=== PATIENT | female | born 1960 | race Caucasian/White ===

== ENCOUNTER 2024-06-20 14:58 | Emergency (ER) | payer MEDICARE, SELFPAY ==
[2024-06-20 15:08] VITALS: BP 218/71; PULSE 80; RESP 18; TEMP 36.9; O2SAT 96; BMI 40.6
[2024-06-20 15:30] VITALS: BP 196/89
--- NOTE | 2024-06-20 15:31 | ED_ITS ---
HPI - General Adult General Time Seen by Provider: 15:31 Date Seen: 06/20/24 Chief complaint: Hypertension Stated complaint: blood pressure issue Time Seen by Provider: 06/20/24 15:30 Source: patient and RN notes reviewed Mode of arrival: ambulatory Limitations: no limitations History of Present Illness HPI narrative: This 63-year-old female is coming in with elevated blood pressures at home. Her blood pressure when I come into the room is 196/89, was 218/71 on arrival. She notes that her blood pressure was 220/86 today, notes that it has been elevating recently. She states she was told she had a small stroke about 2 weeks ago. She states she was at [address] in [place]. She does not feel like her stroke symptoms are worse. She states she did not even really know she had strokes. She states she just dropped, next day noted a facial droop. She believes that she had imaging done to tell her that she had a stroke. She notes that she is only on an 81 mg aspirin. No she is on the lisinopril hydrochlorothiazide combination. She does believe that she was put on a cholesterol medicine and thinks it is atorvastatin. She is not noting any stroke symptomatology like worsening facial droop, no visual symptoms, no headache, no motor symptoms. She has no chest pain, no worsening shortness of breath. Patient does smell of cigarette smoke and when asked if she is still smoking she does state a few cigarettes. She thinks she is only taking aspirin, we do have her medication reconciliation and I do not see dual antiplatelet agents. Have discussed with her in time frame around stroke, blood pressure management needs to be approached cautiously. The 1st week we really do not do much to bring the blood pressure down. I will need to try to look at her full medications, nursing staff has printed out medication reconciliation, look at this and see if there is something that I can alter. I would also like to look at her records. Related Data Previous Rx's ?Medication ?Instructions ?Recorded clopidogrel 75 mg tablet (Plavix) 75 mg PO DAILY #30 tabs 06/20/24 Review of Systems Status of ROS: Reports: 6 or more systems reviewed and unremarkable except as noted in History and below Exam Const: Vital Signs, click to edit/add: Vital Signs - 24 hr 06/20/24 15:08 06/20/24 15:30 10/17/24 16:02 Temperature 98.5 F Pulse Rate 72 Pulse Rate [Pulse Oximeter] 80 Respiratory Rate 18 Blood Pressure 180/78 H Blood Pressure [Ri ght Forearm] 218/71 H 196/89 H Pulse Oximetry 96 Oxygen Delivery Me thod Room Air Obese 63-year-old female that is alert, interactive, no apparent distress. Does smell of cigarette smoke. Pupils are equal round reactive, sclera clear, extraocular muscles intact. She maybe has slight little droop right corner of her mouth, do not know her baseline but there is rise in her whole right face, just looks slightly off at with slight droop when she is in full smile. Can purse her lips. Speech is normal, no dysarthria. Neck thick, no jugular venous distension, no cervical adenopathy, no thyromegaly masses or nodules noted. Lungs are clear, good air entry, no wheezing crackles. CV is regular, no murmur, normal S1-S2, no S3-S4. Strength is 5 5 and symmetric throughout upper and lower extremities. No tremors noted, patient was ambulatory in here without any difficulty. Documenting provider has reviewed patient's vital signs: yes Course Course ED Course: Patient will continue to have her blood pressure monitored. I will look at her medication reconciliation and see if I can get into her old records to do further research and come up with a safe blood pressure medication plan for her. Reevaluation(s) Time of Reevaluation #1: 16:29 Reevaluation #1: This patient has taken the 50 mg hydralazine which was ordered after review of her records. She believes that this medicine has been making her dizzy in the past and thus she was told to stop it. Did review with her that we can cut the dose in half, do think she needs additional blood pressure management. Her significant other states that she has significant white coat hypertension. It is possible maybe they could do an outpatient ambulatory blood pressure monitoring session on her to see what she is running outside of medical facilities. Did discuss with her that I spoke with Stroke Neurology Dr. Love, she is recommending CTA of her head and neck. Her workup has been incomplete as far as stroke workup. Patient does show some frustration, I did review that they did attempt to do her vessel workup but she states it never happened because she was allergic to contrast dye and nothing was done to follow this up. She seems frustrated that she does not even know what medications she is on either. She is refusing to do the CTA here even despite my explanation that we can do premedication to prevent allergic reactions. They are requesting to schedule this outpatient, have reviewed with them that I cannot order it for them but she can follow up in clinic to get this scheduled. Consultations Consultation #1: Spoke with Dr. Love from stroke Neurology at [place]. She was able to briefly but quickly review records, agreed that no vascular study had been done. She did recommend doing a CTA of her head and neck. She could see that an MRI of her head neck had been ordered on June 08 but never appeared to have gotten done. She will try to look at this patient's records further and I will call her back after the CT of her head and neck have been done. Did review the blood pressure concerns. 1629: Did call Dr. Love back. Have reviewed with her that the patient is telling me she is allergic to IV contrast dye, this is why the MR of her head and neck were not done. Did review that we could do premedications so she would not react, she does not want to do this. Wants to schedule outpatient. Have reviewed with Dr. Love that I reviewed with this patient that her stroke workup has been incomplete. Dr. Love was able to look in the records and see that Dr. Pereira had seen this patient while she was in the hospital, had recommended dual anti-platelet treatment. She would have me put the patient on 30 days of Plavix as she has not taken any. She agrees that the patient's MRI might be indicative of embolic phenomenon but still would have patient go on the Plavix as well as aspirin for coverage of [address] Love wanted to know if patient had access to follow-up and I reviewed with her that she certainly seems to be able to get back into the clinic, has been seen multiple times. Time: 16:13 Vital Signs Vital signs: Initial Vital Signs Temperature 98.5 F 06/20/24 15:08 Temperature Source Temporal Artery Scan 06/20/24 15:08 Pulse Rate 80 06/20/24 15:08 Pulse Rhythm Regular 06/20/24 15:08 Respiratory Rate 18 06/20/24 15:08 Blood Pressure 218/71 H 06/20/24 15:08 Blood Pressure Mean 120 H 06/20/24 15:08 Blood Pressure Position Sitting 06/20/24 15:08 Pulse Oximetry 96 06/20/24 15:08 Oxygen Delivery Method Room Air 06/20/24 15:08 Vital Signs Temperature 98.5 F 06/20/24 15:08 Pulse Rate 80 06/20/24 15:08 Respiratory Rate 18 06/20/24 15:08 Blood Pressure 218/71 H 06/20/24 15:08 Pulse Oximetry 96 06/20/24 15:08 Oxygen Delivery Method Room Air 06/20/24 15:08 Temperature 98.5 F 06/20/24 15:08 Pulse Rate 72 06/20/24 16:02 Respiratory Rate 18 06/20/24 15:08 Blood Pressure 180/78 H 06/20/24 16:02 Pulse Oximetry 96 06/20/24 15:08 Oxygen Delivery Method Room Air 06/20/24 15:08 Medications Administered Medications: Discontinued Medications Generic Name Dose Route Start Last Admin Trade Name Freq PRN Reason Stop Dose Admin Hydralazine HCl 50 mg 06/20/24 15:52 06/20/24 16:22 Hydralazine 25 Mg Tablet PO 06/20/24 15:53 50 mg ONCE ONE Administration Medical Decision Making Medical Records Medical records reviewed: Yes I reviewed the patient's medical records Medical records narrative: Have reviewed head CTs from June 04 as well as June 08, noncontrast, showing infarct. 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 Moderate chronic ischemic microvascular disease. She did have MR angio stroke head neck ordered for 06/08 which were not done. She has had hospitalization from the ED on June 04 with the diagnosis of her stroke. She was back in the ER on June 08. She had patient out reach call for chronic disease management on June 10. She has been in the office on June 11 June 14 June 18 and June 20. Neuro consultation referral was placed on June 12. Contrast dye has not been listed as an allergy but she states she is allergic. She reportedly refused MR imaging while in the hospital initially for the stroke, see this commented on in that hospitalization. Have printed out some of her records and they will be scanned into our chart. Current medications list included to be scanned in. Critical Care Time Critical Care Time Critical Care Time: No Discharge Plan Discharge Clinical Impression: Elevated blood pressure reading with diagnosis of hypertension, Stroke Patient Disposition: Home, Self-Care Condition: Stable Instructions: Heart Healthy Diet (ED), Ischemic Stroke (DC), Hypertension (ED) Additional Instructions: You need to schedule follow-up in clinic as soon as possible. Workup of the vascular system from your stroke needs to be done. You need to either complete MR of your head and neck or CT angiogram of the head neck. This will require you to take premedication as you state you are allergic to contrast dye. Your clinic provider can help you get this arranged. You were recommended to be on 81 mg aspirin as well as Plavix from the stroke neurologist when you are in the hospital at [place]; the stroke neurologist I talked to arya does think we should initiate that and you will take 1 months worth of Plavix as well as your 81 mg aspirin, once Plavix is done you will just stay on the 81 mg aspirin. As for your blood pressure, you can stay on the lisinopril/hydrochlorothiazide 2 tablets daily. You can try the spironolactone 25 mg in the morning. I would have you take half tablet of the hydralazine twice a day which would be 25 mg twice daily (you have 50 mg tablets), this can be held if your blood pressure is under 140/90. You need to work on medication management with your primary care provider, it is very important that you maximize your diabetic control. If you feel you experience a lot of lightheadedness or lower blood pressures when you are at home, could talk to your primary care provider about trying to do ambulatory blood pressure monitoring. This may help figure out how 0 significant your white coat hypertension is. However, your blood pressure when taken at home today was quite elevated. Thus, given your recent stroke, do think I would have you take the 25 mg of hydralazine twice a day with your other medicines. I have sent prescription in for the Plavix for stroke treatment. It really is imperative that you get the vascular imaging done to help complete the workup of this stroke. Activity Level: Activity as Tolerated Prescriptions: New clopidogrel [Plavix] 75 mg tablet 75 mg PO DAILY Qty: 30 0RF Follow Up/Referrals: Provider,Not a Local [Primary Care Provider] - Stand Alone Forms: [employer] Info Instructions
[2024-06-20 16:02] VITALS: BP 180/78; PULSE 72
[2024-06-20] MEDS: HYDRALAZINE 25 MG TABLET 50 MG PO (16:22)
== END 2024-06-20 17:34 | disposition home or self-care (01) ==
PROVIDERS: Emergency Provider Family Medicine
DX: I10 Essential (primary) hypertension (principal); I63.9 Cerebral infarction, unspecified
CPT/HCPCS: 99284; A9270

== ENCOUNTER 2024-10-29 16:33 | Emergency (ER) | payer MEDICARE, BC, SELFPAY ==
[2024-10-29 16:55] VITALS: BP 157/71; PULSE 102; RESP 18; TEMP 37; O2SAT 97; BMI 39.6
--- OUTSIDE RECORDS SUMMARY | 2024-10-29 17:51 | XMS_ITS | Clinical Summary ---
Author Organization [facility] Address [address] [place] [id number] Care Team Providers Care Production Support Specialist Name Role Phone Karissa Childs MD Unavailable [phone] Orlando Concepcion DO Primary Care Provider [phone] Giovanna Diez PharmD Unavailable [phone] Allergies Active Allergy Reactions Criticality Noted Date Comments Atenolol Dyspnea,Shortness Of Breath 02/05/2016 Azithromycin Dyspnea 02/20/2006 Chlorthalidone Other - Describe In Comment Field 02/09/2016 Sweating and numb legs Ciprofloxacin Tinnitus 11/04/2015 Clindamycin Diarrhea,GI Upset 07/07/2020 Diatrizoate Allergen 11/16/2005 Erythromycin Dyspnea 11/16/2005 Lisinopril Other - Describe In Comment Field 07/14/2011 Red dye in generic brands causes rash and sweating White colored generic brands cause shaking headache and tachycardia Morphine 01/04/2009 Patient can't remember reaction. ? Remembers waking up and hearing no more of that for you. Omeprazole Nausea Only 03/26/2021 Prednisone Stomach Upset Low 11/16/2005 Sulfa (Sulfonamide Antibiotics) 07/04/2006 Metoprolol Other - Describe In Comment Field 07/04/2006 Rash, depression abd cramping Medications brimonidine 0.2 % ophthalmic solution Place 1 Drop into left eye at bedtime. Active timoloL maleate (TIMOPTIC) 0.5 % ophthalmic solution Place 1 Drop into right eye at bedtime. Active nystatin powder (MYCOSTATIN) powderIndications :Candidiasis Apply topically to affected area(s) two times daily. 15 g 06/10/20 24 8:53 AM CDT Active Additional Information Patient taking differently:TopicalBID PRN, Skin issue as directed, Informant: Patient's Recall, Reported on 10/09/2024 lancetsIndication s:Type 2 diabetes mellitus with other skin complication, without long-term current use of insulin (HC) Dispense item covered by pt ins. E11.65 IDDM type II, uncontrolled - Test 3 times/day. 100 Each 06/10/20 24 8:53 AM CDT Active pen needle (Pentips) 31 gauge x 3/16 (disposable insulin pen needle) Remove the 2 covers on the pen needle before administering medication dose. 100 Each 06/10/20 24 8:53 AM CDT Active atorvastatin (LIPITOR) 80 mg tabletIndications :Cerebrovascular accident (CVA), unspecified mechanism (HC) Take 1 Tablet (80 mg) by mouth at bedtime. 90 Tablet 3 024 Active famotidine (PEPCID) 40 mg tablet Take 40 mg by mouth once daily if needed for Heartburn or GI Upset. 024 Active ondansetron (ZOFRAN ODT) 4 mg disintegrating tabletIndications :Nausea Place 1 Tablet (4 mg) on the tongue every 8 hours if needed for Nausea/Vomiting . 30 Tablet 024 Active pioglitazone (ACTOS) 45 mg tabletIndications :Type 2 diabetes mellitus with complication, with long-term current use of insulin (HC) Take 1 Tablet (45 mg) by mouth once daily. 90 Tablet 3 024 Active blood sugar diagnostic (Accu-Chek Guide test strips) stripIndications: Type 2 diabetes mellitus with other skin complication, without long-term current use of insulin (HC) Dispense item covered by pt ins. E11.9 IDDM type II - Test 3 times/day. 200 Each 3 024 Active hydrALAZINE (APRESOLINE TABLET) 50 mg tabletIndications :Hypertension Take 1 Tablet (50 mg) by mouth two times daily. 60 Tablet 024 Active meclizine (ANTIVERT) 25 mg tabletIndications :Dizziness Take 1 Tablet (25 mg) by mouth 3 times daily if needed for Vertigo. 30 Tablet 024 Active levETIRAcetam (Keppra) 500 mg tabletIndications :Seizure (HC) Take 1 Tablet (500 mg) by mouth two times daily. 60 Tablet 2 025 2024 Active ALPRAZolam (XANAX) 0.25 mg tabletIndications :Dizziness Take 1 Tablet (0.25 mg) by mouth at bedtime if needed for Anxiety. 5 Tablet 025 Active clobetasol (TEMOVATE) 0.05 % cream Apply 1 Application topically to affected area(s) 2 times daily if needed. 025 Active ascorbic acid, vitamin C, (Vitamin C) 500 mg tablet Take 500 mg by mouth once daily. Take with iron supplement Active triamcinolone (ARISTOCORT; KENALOG) 0.1 % creamIndications: Rectal itching Apply topically to affected area(s) three times daily. 80 g 025 Active levothyroxine (SYNTHROID) 75 mcg tabletIndications :Autoimmune hypothyroidism Take 1 Tablet (75 mcg) by mouth before breakfast. 90 Tablet 3 025 Active loperamide (Anti-Diarrheal) 2 mg tablet Take 2 mg by mouth every 4 hours if needed for Diarrhea. Active ferrous gluconate 324 mg (37 mg iron) tabletIndications :Anemia, unspecified type Take 1 Tablet by mouth once daily with a meal. 30 Tablet 1 10/03/19 25 5:22 PM HIGH SCHOOL MUSIC INSTRUCTOR 025 Active amLODIPine (NORVASC) 10 mg tabletIndications :Hypertension Take 1 Tablet (10 mg) by mouth once daily. 30 Tablet 1 10/03/19 25 5:22 PM HIGH SCHOOL MUSIC INSTRUCTOR 025 Active hydrOXYzine pamoate (VISTARIL) 25 mg capsuleIndication s:Anxiety Take 1 Capsule (25 mg) by mouth 3 times daily if needed for Anxiety. 30 Capsule 1 10/03/19 5:22 PM HIGH SCHOOL MUSIC INSTRUCTOR Active lisinopriL (PRINIVIL; ZESTRIL) 10 mg tabletIndications :Essential hypertension TAKE 1 TABLET(10 MG) BY MOUTH DAILY 30 Tablet 025 Active simethicone (MYLICON DROPS) 20 mg/0.3 mL dropsIndications: Abdominal bloating Take 0.6 mL (40 mg) by mouth 4 times daily if needed for Flatulence. Max dose: 500 mg per 24 hrs 30 mL 025 Active Milk of Magnesia 400 mg/5 mL suspensionIndicat ions:Abdominal bloating Take 15 mL by mouth two times daily. 473 mL 025 Active docusate (COLACE) 100 mg capsuleIndication s:Constipation, acute Take 1 Capsule (100 mg) by mouth 2 times daily if needed for Constipation. 180 Capsule 3 025 Active sennosides-docusa te (SENOKOT S) (8.6-50 mg) tabletIndications :Constipation, acute Take 1 Tablet by mouth once daily. 30 Tablet 025 Active ferrous sulfate 325 mg delayed release tabletIndications :Iron deficiency anemia secondary to inadequate dietary iron intake Take 1 Tablet (325 mg) by mouth once daily with a meal. 90 Tablet 3 025 2024 Discontinued(* IP Discontinued) lisinopriL (PRINIVIL; ZESTRIL) 10 mg tabletIndications :Essential hypertension Take 1 Tablet (10 mg) by mouth once daily. 30 Tablet 025 2024 Discontinued amoxicillin-clavu lanate (AUGMENTIN) 875-125 mg tabletIndications :Sinusitis, unspecified chronicity, unspecified location Take 1 Tablet by mouth two times daily with meals for 5 days. 10 Tablet 025 2024 Active Problems Problem Noted Date Diagnosed Date Acute on chronic anemia 09/29/2024 Axillary adenopathy 09/29/2024 Portal hypertension 09/17/2024 Anemia 09/12/2024 Seizure 08/28/2024 BRUNO (acute kidney injury) 08/28/2024 Lactate blood increase 08/28/2024 Hyperlipidemia 08/22/2024 TIA (transient ischemic attack) 08/21/2024 History of cerebrovascular accident 07/08/2024 Hypertensive chronic kidney disease with stage 1 through stage 4 chronic kidney disease, or unspecified chronic kidney disease 07/08/2024 Left ventricular hypertrophy 07/08/2024 Morbid obesity 07/08/2024 Nicotine dependence, cigaret luis, with unspecified nicotine-induced disorders 07/08/2024 Stage 3b chronic kidney disease 07/08/2024 Type 2 diabetes mellitus with diabetic nephropat hy 07/08/2024 Cerebrovascular accident 06/04/2024 Autoimmune hypothyroidism 09/26/2022 Overview (09/26/2022): Patient seen by endocrinology 09/2021 at [facility]. Diagnosed with Autoimmune hypothyroidism/ Pascual's thyroiditis. Does often forget to take thyroid medication. 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 rafi 09/10/2018 Age-related nuclear cataract of both eyes 2017 Tenosynovitis of wrist 12/07/2015 Sciatica of left side 08/18/2015 Dyspepsia 08/18/2015 Restless leg syndrome 08/18/2015 Palpitations 05/06/2015 Body mass index (BMI) 40.0-44.9, adult 4 Abnormal liver function tests 04/03/2013 Psoriasis 04/03/2013 Benign paroxysmal positional vertigo 02/20/2006 Allergic rhinitis, cause unspecified 01/02/2006 Unspecified essential hypertension 11/16/2005 Overview (04/23/2024): Patient states can't take beta esteban nor water pill Hirsutism 11/16/2005 Resolved Problems Problem Noted Date Diagnosed Date Resolved Date Mild cognitive impairment 06/07/2024 Type 2 diabetes mellitus wit h skin complication, without long-term current use of insulin 05/16/2022 08/16/2024 Overview (04/23/2024): Hemoglobin hemoglobin a1c 10. Patient declines medications despite significant counseling because she doesn't want to be on so many meds. She reports diet and exercise have helped her control this in the past. WE have had many discussions that her diabetes is not controlled with diet and exercise and that there are severe risks of continuing without medication management. Patient understands and declines medications. Patient states can't take metformin, won't take insulin BRUNO (acute kidney injury) 05/16/2022 Diabetes mellitus type 2, co ntrolled, without complications 03/02/2017 10/17/2018 Other atopic dermatitis and related conditions 04/10/2006 09/26/2022 Chronic airway obstruction, not elsewhere classified 11/16/2005 07/03/2015 Encounters Date Type Department Care Team Description 10/29/19 Telephone [facility] [address] [place] [address] Philomena Hernandez, POWER CUTTING MACHINE OPERATOR Appointment 10/29/19 Patient Outreach [facility] Management - Care Management Navigation/[facility] [address] [place] [id number] Ofe Bunch LSW Care Management Intake (Social work care management intake outreach./) 10/25/19 Patient Outreach [facility] Management - Care Management Navigation/[facility] [address] [place] [id number] Ofe Bunch LSW Care Management Intake (Social work care management intake outreach./) 10/24/19 1:15 PM HIGH SCHOOL MUSIC INSTRUCTOR Orders Only [facility] [address] [place] [address] Lab, [facility] Lab 10/24/19 11:53 AM HIGH SCHOOL MUSIC INSTRUCTOR - 10/24/19 1:08 PM HIGH SCHOOL MUSIC INSTRUCTOR Emergency [facility] [address] [place] [address] Frida Hampton PA Lightheaded (Primary Dx); Abdominal pain, unspecified abdominal location Discharge Disposition: Home Self Care 10/24/19 Travel 10/23/19 Nurse Triage [facility] [address] [place] [address] Orlando Concepcion, DO Fatigue 10/23/19 Patient Outreach [facility] Management - Care Management Navigation/[facility] [address] [place] [id number] Ofe Bunch LSW Care Management Intake (Social work care management intake outreach./) 10/23/19 Patient Outreach [facility] Management - Care Management Navigation/[facility] [address] [place] [address] Rom Santy [facility] Navigation 10/21/19 2:10 PM HIGH SCHOOL MUSIC INSTRUCTOR - 10/21/19 3:42 PM HIGH SCHOOL MUSIC INSTRUCTOR Emergency [facility] [address] [place] [address] Ana Hudsno PA Acute viral sinusitis (Primary Dx) Discharge Disposition: Home Self Care 10/21/19 Telephone [facility] [address] [place] [address] Orlando Concepcion DO Questions 10/21/19 25 Refill [facility] [address] [place] [address] Orlando Concepcion, Refill Request (Lisinopril) 10/21/19 Travel 10/21/19 25 Refill [facility] [address] [place] [address] Orlando Concepcion, Refill Request (Lisinopril) 10/18/19 1:15 PM HIGH SCHOOL MUSIC INSTRUCTOR Telemedicine [facility] [address] [place] [address] Orlando Concepcion, 10/18/19 25 Patient Outreach [facility] - Care Management Navigation/[facility] [address] [place] [address] Ofe Bunch LSW Care Management Intake (Social work care management intake outreach./) 10/16/19 25 Telephone [facility] [address] [place] [address] Philomena Hernandez, POWER CUTTING MACHINE OPERATOR Appointment 10/14/19 25 Refill [facility] [address] [place] [address] Orlando Concepcion DO Refill Request (Hydrochlorothiazide) 10/14/19 25 Telephone [facility] [address] [place] [address] Philomena Hernandez NP 10/13/19 3:51 PM HIGH SCHOOL MUSIC INSTRUCTOR - 10/13/19 4:33 PM HIGH SCHOOL MUSIC INSTRUCTOR Emergency [address] [address] Lisbeth Key MD Other fatigue (Primary Dx); Viral illness; TIA (transient ischemic attack) Discharge Disposition: Home Self Care 10/13/19 25 Travel 10/12/19 Refill [facility] [address] [place] [address] Orlando Concepcion DO Refill Request (Hydrochlorothiazide) 10/09/19 2:40 PM HIGH SCHOOL MUSIC INSTRUCTOR Telemedicine [address] [address] Vishnu Danielle MD Telehealth (No vitals taken); Hospital F/U ([facility], 09/29/2024 - 10/03/2024, Anemia) 10/09/19 Travel 10/08/19 10:46 AM HIGH SCHOOL MUSIC INSTRUCTOR - 10/08/19 2:48 PM HIGH SCHOOL MUSIC INSTRUCTOR Emergency [address] [address] Discharge Disposition: Against Medical Advice or Discontinued Care 10/08/19 Travel 10/07/19 Telephone [facility] [address] [place] [address] Orlando Concepcion DO Need Meds 10/04/19 Patient Outreach [facility] [address] [place] [address] Karey Leon, RN Student Primary RN Care Management; Hospital F/U (Lace=64) 09/29/19 11:51 AM HIGH SCHOOL MUSIC INSTRUCTOR - 10/03/19 3:10 PM HIGH SCHOOL MUSIC INSTRUCTOR Hospital Encounter [address] [address] Michael Cisneros, Kermit Garcia DO Gorden Klukas, MD Nissa Su Joan R, MD Beardsley, Jonathan Philip, NP Anemia, unspecified type (Primary Dx); Abdominal pain, unspecified abdominal location; Sheltered homelessness; Hypertension; Anxiety Discharge Disposition: Home Self Care 09/29/19 Travel 09/26/19 Patient Outreach [facility] Care Management - Care Management Navigation/[facility] [email or web address] [address] [place] [id number] Siena Burton LSW Care Management Intake (Social work care management intake outreach./) 09/25/19 Telephone [facility] [address] [place] [address] Orlando Concepcion DO Medication Management (hydrALAZINE (APRESOLINE TABLET) 50 mg tablet) 09/24/19 Telephone [facility] [address] [place] [address] Orlando Concepcion DO Medication Management (hydrALAZINE (APRESOLINE TABLET) 50 mg tablet) 09/23/19 Refill [facility] [address] [place] [address] Orlando Concepcion DO Refill Request (Lisinopril) 09/19/19 12:11 PM HIGH SCHOOL MUSIC INSTRUCTOR - 09/19/19 11:59 PM HIGH SCHOOL MUSIC INSTRUCTOR Hospital Encounter [facility] [address] [place] [address] Anemia due to other cause, not classified 09/19/19 Travel 09/17/19 9:20 AM HIGH SCHOOL MUSIC INSTRUCTOR Office Visit [facility] [address] [place] [address] Orlando Concepcion DO Hospital F/U (I feel like shit) 09/17/19 Refill [facility] [address] [place] [address] Orlando Concepcion DO Refill Request (Hydrochlorothiazide) 09/16/19 10:30 AM HIGH SCHOOL MUSIC INSTRUCTOR Telemedicine [facility] [address] [place] [address] Davide Forbes MD Follow Up (post hospital, has a visit with PCP tomorrow. Recently had colonoscopy and endoscopy done. Recently taken off aspirin and clopidogrel, should she take again? ) 09/16/19 25 Orders Only [facility] [address] [address] Ernie Shetty MD <No scans attached> 09/16/19 25 Orders Only [address] [address] Ernie Shetty MD <No scans attached> 09/16/19 25 Travel 09/16/19 25 Patient Outreach [facility] [address] [place] [address] Karey Leon, EDUARDO Student Primary RN Care Management; Hospital F/U (Lace=56) 09/14/19 4:25 PM HIGH SCHOOL MUSIC INSTRUCTOR - 09/14/19 6:17 PM [facility] Emergency [facility] [address] [place] [address] Figueroa Gonzalez MD Elevated blood pressure reading (Primary Dx) Discharge Disposition: Home Self Care 09/14/19 Travel 09/14/19 Nurse Triage [facility] [address] [place] [address] Orlando Concepcion, Hypertension 09/13/19 7:42 AM HIGH SCHOOL MUSIC INSTRUCTOR Anesthesia Event [address] [address] Noe Hobbs MD Spielmann, John Michael, MD 09/13/19 7:30 AM HIGH SCHOOL MUSIC INSTRUCTOR - 09/13/19 25 8:00 AM [facility] Surgery [address] [address] Ernie Shetty MD COLONOSCOPY WITH POLYPECTOMY 09/12/19 12:27 PM HIGH SCHOOL MUSIC INSTRUCTOR Anesthesia [address] [place] [address] [address] Michael Ricardo MD 09/12/19 25 12:05 PM HIGH SCHOOL MUSIC INSTRUCTOR - 09/12/19 25 12:[address] [address] Ernie Shetty MD ESOPHAGOGASTRODUODENOSCOPY WITH BIOPSY 09/12/19 25 3:21 AM HIGH SCHOOL MUSIC INSTRUCTOR - 09/14/19 25 11:00 AM HIGH SCHOOL MUSIC INSTRUCTOR Hospital Encounter [facility] [address] [place] [address] Vishnu Benitez MD Maier, MD Lyle Matthews Hamza Mohammad Khudir, MD Discharge Disposition: Home Self Care 09/12/19 25 Travel 09/12/19 25 Telephone [facility] [address] [facility] [address] [place] [phone] Rehana Pérez NP Hospital F/U 09/10/19 25 4:36 PM HIGH SCHOOL MUSIC INSTRUCTOR - 09/12/19 25 1:57 AM HIGH SCHOOL MUSIC INSTRUCTOR Emergency [facility] [address] [place] [address] Mehul Quezada, CLAUDIO Jaramillo, MD Emmanuel Contreras, MD Idania Munson, MD Nicoel Wray, MD Jorge Alberto Mackey, Ryan Ahumada MD Anemia, unspecified type (Primary Dx); Hypertension Discharge Disposition: Short Term/PPS Hosp 09/10/19 25 Travel 09/05/19 25 Refill [facility] [address] [place] [address] Orlando Concepcion DO Refill Request (Levetiracetam) 09/05/19 25 Telephone [facility] [address] [place] [address] Orlando Concecpion DO ER Follow up 09/02/20 24 Nurse Triage [facility] [address] [place] [address] Orlando Concepcion DO Dizziness 09/02/20 24 Patient Outreach [facility] [address] [place] [address] Alis Dawson RN Primary RN Care Management; Hospital F/U (LACE 56) 08/31/20 24 1:33 PM HIGH SCHOOL MUSIC INSTRUCTOR - 08/31/20 24 3:11 PM HIGH SCHOOL MUSIC INSTRUCTOR Emergency [facility] [address] [place] [address] Olivia Crawford PA Weakness (Primary Dx); Anemia, unspecified type Discharge Disposition: Home Self Care 08/31/20 Travel 08/29/20 Travel 08/28/20 10:20 PM HIGH SCHOOL MUSIC INSTRUCTOR - 08/30/20 2:34 PM HIGH SCHOOL MUSIC INSTRUCTOR Hospital Encounter [facility] [address] [place] [address] [facility] MBBS Schwarze, Lacy Dee, MD Hypertension (Primary Dx); Focal epilepsy (HC) Discharge Disposition: Home Self Care 08/28/20 4:31 PM HIGH SCHOOL MUSIC INSTRUCTOR - 08/28/20 9:27 PM HIGH SCHOOL MUSIC INSTRUCTOR Emergency [facility] [address] [place] [address] Brianna Wilson MD Leonard, Kyle Patrick, MD Seizure (HC) (Primary Dx); Severe sepsis (HC) Discharge Disposition: Home Self Care 08/27/20 11:19 AM HIGH SCHOOL MUSIC INSTRUCTOR - 08/27/20 12:25 PM HIGH SCHOOL MUSIC INSTRUCTOR Emergency [facility] [address] [place] [address] Ana Hudson PA Blood pressure check (Primary Dx) Discharge Disposition: Home Self Care 08/27/20 Travel 08/26/20 12:00 PM HIGH SCHOOL MUSIC INSTRUCTOR Office Visit [facility] [address] [place] [address] Davide Forbes MD Follow Up ([facility] 08/22/2024. Had an MRI. /Has some questions about Plavix, ED said to take it. Is currently taking it. ) 08/26/20 Telephone [facility] [address] [place] [address] Davide Forbes MD Need Meds (Upcoming MRI) 08/26/20 Travel 08/23/20 Patient Outreach [facility] [address] [place] [address] Trini Richardson, RN Primary RN Care Management; Hospital F/U (LACE 61) 08/22/20 Telephone [facility] [address] [place] [address] Orlando Concepcion, Follow Up 08/22/20 Telephone [facility] [address] [place] [address] Orlando Concepcion, Follow Up 08/21/20 8:46 PM HIGH SCHOOL MUSIC INSTRUCTOR - 08/22/20 2:40 PM HIGH SCHOOL MUSIC INSTRUCTOR Emergency [facility] [address] [place] [address] Frank Rivera MD Samimian, Pezhman, MD Del Castillo, Isabelle Jennifer Rose Farro, MD Torgersen, Juliane Strickland, YAMILET TIA (transient ischemic attack) (Primary Dx); Type 2 diabetes mellitus with complication, with long-term current use of insulin (HC) Discharge Disposition: Home Self Care 08/21/20 Travel 08/20/20 Telephone [facility] [address] [place] [address] Rehana Pérez NP Results (test result) 08/20/20 Telephone [facility] [address] [facility] [address] [place] [address] Rehana Pérez NP Results 08/19/20 Orders Only [facility] [address] [place], [place] [id number] Maris Rivers 1 scan: (1-Ord) Eriso Report 08/16/20 3:20 PM HIGH SCHOOL MUSIC INSTRUCTOR Telemedicine [facility] [address] [place] [address] Orlando Concepcion DO 08/15/20 Refill [facility] [address] [place] [address] Orlando Concepcion DO Refill Request (Hydralazine) 08/12/20 Refill [facility] [address] [place] [address] Orlando Concepcion DO Refill Request (Hydralazine) 08/05/20 24 Refill [facility] [address] [facility] [address] Orlando Concepcion DO Refill Request (Levothyroxine, Lisinopril-hydrochlorothiazid e (20-25 Mg)) 08/02/20 24 2:40 PM HIGH SCHOOL MUSIC INSTRUCTOR Nurse/Clinic Staff Only [facility] [address] [place] [address] Dressing Change (Apply Ziopatch) 08/02/20 24 Travel 08/02/20 24 Refill [facility] [address] [place] [address] Orlando Concepcion DO Refill Request (Levothyroxine, Lisinopril-hydrochlorothiazid e (20-25 Mg)) 07/30/20 24 11:00 AM HIGH SCHOOL MUSIC INSTRUCTOR Telemedicine [facility] [place] [facility] [address] [place] [phone] Rehana Pérez NP Telehealth (Stroke follow up '06/2024 [facility]) 07/30/20 24 Telephone [facility] [place] [address] [place] [phone] Rehana Pérez NP Follow Up 07/30/20 Telephone [facility] [address] [place] [address] Orlando Concepcion DO Appointment 07/30/20 24 Travel 07/29/20 24 Telephone [facility] [address] [place] [phone] Rehana Pérez NP Appointment Reminder from Last 3 Months Immunizations Name Administration Dates Next Due COVID-19 vaccine (Pfizer-Bio NTech 30mcg/0.3mL) 12YO+ WING-SUCROSE EMANUEL STATON 10/08/2021 COVID-19 vaccine (Pfizer-BioNTech 30mcg/0.3mL) P FEMANUEL 04/09/2021,03/16/2021 Td (Age >=7 Years) 02/14/2005 Family History Medical History Relation Name Comments Diabetes Brother 1 Stroke Brother 2 Suhail TIA Diabetes Father Heart Disease Father Other Father diffuse arterie s clogged Drug Abuse Mother Other Mother Alzheimer's Diabetes Sister 1 Relation Name Status Comments Brother 1 Alive Brother 2 Suhail Alive Father Alive heart disease Maternal Grandfather (Age 82) [place] ? Maternal Grandmother Alive Mother (Age 75) HTN, Alzhe hamilton's Paternal Grandfather (Age 76) dave ne [place] Paternal Grandmother (Age 86) [facility], Sister 1 Alive Sister 2 Alive Social History Tobacco Use Types Packs/Day Years Used Date Smoking Tobacco: Every Day Cigarettes 0.3 30 Passive Smoke Exposure: Past Smokeless Tobacco: Never Tobacco Cessation:Ready to Q uit: No; Counseling Given: No Comments:4-5 cigs per day Alcohol Use Standard Drinks/Week Comments No 0 (1 standard drink = 0.6 oz pur e alcohol) PHQ-2 Answer Date Recorded PHQ-2 TOTAL SCORE 0 10/13/2023 Social Connections Answer Date Recorded Do you often feel lonely or isolated from those around you? 0 10/09/2024 Financial Resource Strain Answer Date R ecorded Difficulty of Paying Living Expenses Not on file 10/09/2024 Difficulty of Paying Living Expenses 3 10/09/2024 Food Insecurity Answer Date Recorded Do you worry your food will run out before you are able to buy more? 2 10/09/2024 Transportation Needs Answer Date Record ed Does lack of transportation keep you from medica l appointments? 2 10/09/2024 Does lack of transportation keep you from work, meetings or getting things that you need? 2 10/09/2024 Housing Stability Answer Date Recorded What is your housing situation today? 3 10/09/2024 Interpersonal Safety Answer Date Record ed Are you being hit, kicked, p ushed or yelled at (see row info)? No 10/24/2024 Interpersonal Safety Abuse 12 - 18 Not on file 10/24/2024 Interpersonal Safety Ambulatory Vulnerability No t on file 10/24/2024 Utilities Answer Date Recorded Do you have trouble paying f or utilities (for example, heat, electricity, water, phone)? 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 Not on file Not on file Not on file Obstetrics History Para Term AB IAB SAB Ectopic Multiple Livin g Live Births 3 3 3 Date Outcome GA Total Labor Labor/2nd/3rd Weight Sex Type Anes PTL Louise A1 A5 Name Clin Para Para Para Comments all c-sec Last Filed Vital Signs Vital Sign Reading Time Taken Comments Blood Pressure 178/73 10/24/2024 11:58 AM [employer] Pulse 90 10/24/2024 11:58 AM [employer] Temperature 36.6 C (97.9 F) 10/24/2024 11:58 AM [employer] Respiratory Rate 18 10/24/2024 11:58 AM [employer] Oxygen Saturation 95% 10/24/2024 11:58 AM [employer] Inhaled Oxygen Concentration - - Weight 89.8 kg (198 lb) 10/24/2024 11:58 AM [employer] Height 149.9 cm (4' 11) 10/24/2024 11:58 AM [employer] Body Mass Index 39.99 10/24/2024 11:58 AM [employer] Plan of Treatment Upcoming Encounters Date Type Department Care Team (Late st Contact Info) Description 10/30/2024 1:45 PM [employer] Orders Only [address] [place] [address] Lab, [facility] 11/08/2024 1:30 PM [employer] Orders Only [address] [place] [address] Lab, [facility] 11/15/2024 1:30 PM CDT Orders Only [address] [place] [address] Lab, [facility] 11/22/2024 1:30 PM CDT Orders Only [address] [place] [address] Lab, [facility] 11/29/2024 1:30 PM CDT Orders Only [address] [place] [address] Lab, [facility] 12/06/2024 1:30 PM CDT Orders Only [facility] [address] [place] [address] Lab, [facility] 12/13/2024 1:30 PM CDT Orders Only [address] [place] [address] Lab, [facility] 12/20/2024 1:30 PM CDT Orders Only [address] [place] [address] Lab, [facility] 12/27/2024 1:30 PM CDT Orders Only [address] [place] [address] Lab, [facility] Due Date Last Done Comments Tdap 1969 Pneumococcal series for age 50+ (1 of 2 - PCV) 1977 Zoster (shingles) series for age 50+ (1 of 2) 2008 Mammogram for age 45-75 12/04/2008 12/05/2007 Tetanus booster 02/14/2015 02/14/2005 RSV vaccine for adults or (1 - Risk 60-74 years 1-dose series) 2018 DEXA/DXA scan for age 65+ 2023 Medicare Wellness for age 65+ 2023 COVID-19 vaccine series ( season) 2024 10/08/2021, 10/08/2021, 04/09/2021, Additional history exists Influenza for age 65+ 05/05/2024 Depression screening for age 12+ 10/13/2024 10/13/2023, 10/13/2023, 10/13/2023, Additional history exists BMI (ht and wt on same day) for age 18+ 04/22/2025 04/22/2024, 03/15/2024, 04/09/2021, Additional history exists Low Dose CT (for lung CA) ag e 50-80 09/10/2025 09/10/2024, 11/28/2007 Colonoscopy through age 75 09/13/2025 09/13/2024 Lipids for age 45-75 10/13/2029 10/13/2024, 08/22/2024, 06/04/2024, Additional history exists Hepatitis C screening for ag e 18-79 Completed 05/11/2022 Goals Goal Patient Goal Type Associated Problems Recent Progress Patient-Stated? Author BLOOD PRESSURE - MAINTAINS BP less than 140/90 Blood Pressure No Joseph Villafuerte MD Procedures Procedure Name Priority Date/Time Associated Diagnosis Comments HEMOGLOBIN Routine 10/24/2024 12:46 PM [employer] Microcytic anemia Fatigue, unspecified type CREATININE STAT 10/21/2024 3:25 PM [employer] HEMOGLOBIN STAT 10/21/2024 3:25 PM [employer] INFLUENZA A/B PCR STAT 10/13/2024 4:25 PM [employer] COVID-19 MOLECULAR Today 10/13/2024 4:25 PM [employer] LIPID PANEL W REFLEX MEASURE D LDL Today 10/13/2024 4:05 PM [employer] TIA (transient ischemic attack) CBC WITH AUTO DIFFERENTIAL STAT 10/13 4:05 PM [employer] PROTIME-INR STAT 10/13/2024 4:05 PM [employer] BASIC METABOLIC PANEL STAT 10/13/2024 4:05 PM [employer] CBC WITH AUTO DIFFERENTIAL STAT 10/13 4:05 PM [employer] BASIC METABOLIC PANEL STAT 10/08/2024 11:50 AM [employer]CTOR RED CELL MORPHOLOGY STAT 10/08/2024 11:49 AM [employer]CTOR PLATELET ESTIMATE STAT 10/08/2024 11:49 AM [employer]CTOR MANUAL DIFFERENTIAL STAT 10/08/2024 11:49 AM [employer]CTOR CBC WITH AUTO DIFFERENTIAL STAT 10/08 11:49 AM [employer]CTOR CBC WITH AUTO DIFFERENTIAL STAT 10/08 11:49 AM [employer]CTOR GLUCOSE METER Routine 10/03/2024 1:01 PM [employer]CTOR CREATININE BEBE 10/03/2024 8:43 AM [employer]CTOR GLUCOSE METER Routine 10/03/2024 8:11 AM [employer] HEMOGLOBIN Early AM 10/03/2024 6:24 AM [employer]CTOR GLUCOSE METER Routine 10/02/2024 10:51 PM [employer]CTOR GLUCOSE METER Routine 10/02/2024 4:56 PM [employer]CTOR TRANSFUSE RBC (NURSE COMMUNICATION ORDER) STAT 10/02/2024 4:32 PM [employer] RBC W/O TYPE & SCREEN STAT 10/02/2024 4:05 PM [employer] RED BLOOD CELLS EA UNIT STAT 10/02/19 1:16 PM [employer]CTOR GLUCOSE METER Routine 10/02/2024 7:50 AM [employer]CTOR GLUCOSE METER Routine 10/01/2024 10:25 PM [employer]CTOR GLUCOSE METER Routine 10/01/2024 5:25 PM [employer]CTOR GLUCOSE METER Routine 10/01/2024 12:04 PM [employer]CTOR GLUCOSE METER Routine 10/01/2024 7:28 AM [employer]CTOR HEMOGLOBIN Early AM 10/01/2024 6:03 AM [employer]CTOR HEMOGLOBIN Timed 10/01/2024 2:28 AM [employer]CTOR GLUCOSE METER Routine 09/30/2024 9:30 PM [employer] TRANSFUSE RBC (NURSE COMMUNICATION ORDER) STAT 09/30/2024 7:51 PM [employer] RBC W/O TYPE & SCREEN STAT 09/30/2024 6:58 PM [employer]CTOR RED BLOOD CELLS EA UNIT STAT 09/30/19 6:50 PM [employer]CTOR HEMOGLOBIN Timed 09/30/2024 6:18 PM [employer]CTOR GLUCOSE METER Routine 09/30/2024 4:46 PM [employer]CTOR GLUCOSE METER Routine 09/30/2024 1:07 PM [employer]CTOR TRANSFUSE RBC (NURSE COMMUNICATION ORDER) STAT 09/30/2024 11:53 AM [employer] RBC W/O TYPE & SCREEN STAT 09/30/2024 10:30 AM [employer]CTOR RED BLOOD CELLS EA UNIT STAT 09/30/19 25 10:30 AM [employer]CTOR OCCULT BLOOD IFOBT STOOL Today 025 10:07 AM [employer]CTOR GLUCOSE METER Routine 09/30/2024 7:31 AM [employer]CTOR BILIRUBIN,TOTAL/DIRECT BEBE 5:56 AM [employer]CTOR LIPASE Early AM 09/30/2024 5:56 AM [employer]CTOR PLATELET COUNT Early AM 09/30/2024 5:56 AM [employer] AST (SGOT) Early AM 09/30/2024 5:56 AM [employer]CTOR ALT (SGPT) Early AM 09/30/2024 5:56 AM [employer]CTOR ALK PHOSPHATASE Early AM 09/30/2024 5:56 AM [employer]CTOR HEMOGLOBIN Early AM 09/30/2024 5:56 AM [employer]CTOR WHITE BLOOD COUNT Early AM 09/30/2024 5:56 AM [employer]CTOR SODIUM Early AM 09/30/2024 5:56 AM [employer]CTOR POTASSIUM Early AM 09/30/2024 5:56 AM [employer]CTOR CREATININE Early AM 09/30/2024 5:56 AM [employer]CTOR MAGNESIUM Early AM 09/30/2024 5:56 AM [employer]CTOR GLUCOSE METER Routine 09/29/2024 10:41 PM [employer]CTOR HEMOGLOBIN Today 09/29/2024 8:53 PM [employer]CTOR CELIAC DISEASE HLA DQ ASSOC Today 09/05 8:53 PM [employer]CTOR TRANSFUSE RBC (NURSE COMMUNICATION ORDER) STAT 09/29/2024 5:37 PM [employer]CTOR GLUCOSE METER Routine 09/29/2024 4:57 PM [employer]CTOR PERIPHERAL BLD MORPHOLOGY STAT 2024 2:41 PM [employer]CTOR TISSUE TRANSGLUTAMINASE IGA STAT 09/05 2:41 PM [employer]CTOR RED CELL MORPHOLOGY BEBE 09/29/2024 2:41 PM [employer]CTOR PLATELET ESTIMATE BEBE 09/29/2024 2:41 PM [employer]CTOR MANUAL DIFFERENTIAL BEBE 09/29/2024 2:41 PM [employer]CTOR T4,FREE BEBE 09/29/2024 2:41 PM [employer]CTOR TSH BEBE 09/29/2024 2:41 PM [employer]CTOR CBC WITH AUTO DIFFERENTIAL STAT 09/29 2:41 PM [employer]CTOR PARVOVIRUS B19 HUMAN IGG/IGM Today 2:41 PM [employer]CTOR FIBRINOGEN,QUANTITATIVE STAT 09/29/19 2:41 PM [employer]CTOR APTT Today 09/29/2024 2:41 PM [employer]CTOR PROTIME-INR Today 09/29/2024 2:41 PM [employer]CTOR LACTATE VENOUS Today 09/29/2024 2:41 PM [employer] IN[employer]CTOR SEDIMENTATION RATE BEBE 09/29/2024 2:41 PM [employer]CTOR CELIAC CASCADE PANEL STAT 09/29/2024 2:41 PM [employer]CTOR ERYTHROPOIETIN (EPO), SERUM Today 09/05 2:41 PM [employer]CTOR CBC WITH AUTO DIFFERENTIAL STAT 09/29 2:41 PM [employer]CTOR RETICULOCYTES BEBE 09/29/2024 2:41 PM [employer]CTOR COPPER SERUM Today 09/29/2024 2:41 PM [employer]CTOR FOLIC ACID Today 09/29/2024 2:41 PM [employer] IN[employer]CTOR LD,TOTAL Today 09/29/2024 2:41 PM [employer]CTOR ZINC SERUM Today 09/29/2024 2:40 PM [employer]CTOR RED BLOOD CELLS EA UNIT STAT 09/29/19 1:16 PM [employer]CTOR RBC W TYPE AND SCREEN STAT 09/29/2024 1:16 PM [employer]CTOR C-REACTIVE PROTEIN BEBE 09/29/2024 12:22 PM [employer]CTOR GAMMA GT BEBE 09/29/2024 12:22 PM [employer]CTOR IRON PLUS IRON BINDING CAP BEBE 09/29 12:22 PM [employer]CTOR FERRITIN BEBE 09/29/2024 12:22 PM [employer] IN[employer]CTOR VITAMIN B12 BEBE 09/29/2024 12:22 PM [employer]CTOR HAPTOGLOBIN BEBE 09/29/2024 12:22 PM [employer]CTOR CWS PATH REVIEW HEMATOLOGY STAT 09/29 12:22 PM [employer]CTOR PLATELET ESTIMATE STAT 09/29/2024 12:22 PM [employer]CTOR RED CELL MORPHOLOGY STAT 09/29/2024 12:22 PM [employer]CTOR LIPASE STAT 09/29/2024 12:22 PM [employer]CTOR HEPATIC FUNCTION PANEL STAT 12:22 PM [employer]CTOR BASIC METABOLIC PANEL STAT 09/29/2024 12:22 PM [employer] IN[employer]CTOR CBC W PLT NO DIFF STAT 09/29/2024 12:22 PM [employer]CTOR UA W/ SEDIMENT EXAM REFLEXED PER CRITERIA STAT 09/29/2024 12:20 PM [employer]CTOR COVID-19 MOLECULAR Today 09/29/2024 12:20 PM [employer]CTOR INFLUENZA A/B PCR STAT 09/29/2024 12:20 PM [employer]CTOR CRITICAL CARE PROVIDED Routine 12:02 PM [employer]CTOR HEMOGLOBIN STAT 09/19/2024 12:15 PM [employer] Anemia due to other cause, not classified HEMOGLOBIN Routine 09/17/2024 10:44 AM [employer] Anemia due to other cause, not classified BASIC METABOLIC PANEL Routine 09/17/2024 10:44 AM [employer] Essential hypertension CREATININE Early AM 09/14/2024 7:13 AM [employer] HEMOGLOBIN Early AM 09/14/2024 7:13 AM [employer]CTOR POTASSIUM Early AM 09/14/2024 7:13 AM [employer]CTOR MAGNESIUM Early AM 09/14/2024 7:13 AM [employer]CTOR GLUCOSE METER Timed 09/14/2024 7:03 AM [employer] IN[employer]CTOR GLUCOSE METER Timed 09/14/2024 2:06 AM [employer]CTOR GLUCOSE METER Timed 09/13/2024 8:40 PM [employer] IN[employer]CTOR GLUCOSE METER Timed 09/13/2024 5:09 PM [employer]CTOR GLUCOSE METER Timed 09/13/2024 12:47 PM [employer]CTOR HEMOGLOBIN Early AM 09/13/2024 8:57 AM [employer]CTOR POTASSIUM Early AM 09/13/2024 8:57 AM [employer]CTOR MAGNESIUM Early AM 09/13/2024 8:57 AM [employer] IN[employer]CTOR PATH TISSUE EXAM Today 09/13/2024 8:06 AM [employer]CTOR COLONOSCOPY WITH POLYPECTOMY 06/2025 7:42 AM [employer]CTOR GI bleed COLONOSCOPY 09/13/2024 7:15 AM [employer] IN[employer]CTOR GLUCOSE METER Timed 09/13/2024 6:08 AM [employer] IN[employer]CTOR GLUCOSE METER Timed 09/13/2024 1:14 AM [employer] IN[employer]CTOR GLUCOSE METER Timed 09/12/2024 9:59 PM [employer] IN[employer]CTOR GLUCOSE METER Timed 09/12/2024 5:31 PM [employer]CTOR HEMOGLOBIN Today 09/12/2024 2:59 PM [employer] IN[employer]CTOR GLUCOSE METER Timed 09/12/2024 1:19 PM [employer] IN[employer]CTOR GLUCOSE METER Timed 09/12/2024 12:49 PM [employer]CTOR PATH TISSUE EXAM Today 09/12/2024 12:33 PM [employer] IN[employer]CTOR ESOPHAGOGASTRODUODENOSCOPY W ITH BIOPSY 09/12/2024 12:27 PM [employer]CTOR anemia - GI bleed ENDOSCOPY 09/12/2024 11:45 AM [employer] IN[employer]CTOR GLUCOSE METER Timed 09/12/2024 10:39 AM [employer] IN[employer]CTOR CBC W PLT NO DIFF Early AM 09/12/2024 7:02 AM [employer]CTOR BASIC METABOLIC PANEL Early AM 09/12/2024 7:02 AM [employer] IN[employer]CTOR MAGNESIUM Early AM 09/12/2024 7:02 AM [employer] IN[employer]CTOR GLUCOSE METER Timed 09/12/2024 4:18 AM [employer] IN[employer]CTOR GLUCOSE METER Routine 09/11/2024 5:22 PM [employer]CTOR HEMOGLOBIN Today 09/11/2024 3:05 PM [employer]CTOR RBC W/O TYPE & SCREEN STAT 09/11/2024 8:20 AM [employer]CTOR HEMOGLOBIN STAT 09/11/2024 3:48 AM [employer]CTOR TRANSFUSE RBC (NURSE COMMUNICATION ORDER) STAT 09/11/2024 12:16 AM [employer] IN[employer]CTOR GLUCOSE METER Routine 09/10/2024 10:33 PM [employer]CTOR TRANSFUSE RBC (NURSE COMMUNICATION ORDER) STAT 09/10/2024 8:41 [address] [employer] [address] CHEST ABDOMEN PELVIS WO STAT 09/10 7:40 PM [employer]CTOR RBC W/O TYPE & SCREEN STAT 09/10/2024 7:19 PM [employer]CTOR RED BLOOD CELLS EA UNIT STAT 09/10/19 25 7:07 PM [employer]CTOR RED BLOOD CELLS EA UNIT STAT 09/10/19 25 7:07 PM [employer] INSTRUCTOR TYPE & SCREEN STAT 09/10/2024 7:07 PM [employer] INSTRUCTOR TROPONIN T (HS) ONE TIME Timed 025 7:07 PM [employer]CTOR EKG 12 LEAD STAT 09/10/2024 5:25 PM [employer]CTOR RED CELL MORPHOLOGY STAT 09/10/2024 5:16 PM [employer] IN[employer]CTOR PLATELET ESTIMATE STAT 09/10/2024 5:16 PM [employer] IN[employer]CTOR MANUAL DIFFERENTIAL STAT 09/10/2024 5:16 PM [employer] IN[employer]CTOR CBC WITH AUTO DIFFERENTIAL STAT 09/10 5:16 PM [employer]CTOR CBC WITH AUTO DIFFERENTIAL STAT 09/10 5:16 PM [employer] INSTRUCTOR COMP METABOLIC PANEL STAT 09/10/2024 5:16 PM [employer] INSTRUCTOR TROPONIN T (HS) ACUTE W/2HR REFLEX STAT 09/10/2024 5:16 PM [employer] IN[employer]CTOR UA W/ SEDIMENT EXAM REFLEXED PER CRITERIA STAT 08/31/2024 2:26 PM [employer] IN[employer]CTOR RED CELL MORPHOLOGY STAT 08/31/2024 2:13 PM [employer] IN[employer]CTOR PLATELET ESTIMATE STAT 08/31/2024 2:13 PM [employer] IN[employer]CTOR MANUAL DIFFERENTIAL STAT 08/31/2024 2:13 PM [employer] INSTRUCTOR CBC WITH AUTO DIFFERENTIAL STAT 08/31 2:13 PM [employer] INSTRUCTOR BASIC METABOLIC PANEL STAT 08/31/2024 2:13 PM [employer] INSTRUCTOR CBC WITH AUTO DIFFERENTIAL STAT 08/31 2:13 PM [employer] IN[employer]CTOR GLUCOSE METER Routine 08/31/2024 1:40 PM [employer]CTOR CONTINUOUS VIDEO EEG MONITORING Routine 08/30/2024 9:39 AM [employer] IN[employer]CTOR GLUCOSE METER Timed 08/30/2024 8:12 AM [employer] IN[employer]CTOR CREATININE BEBE 08/30/2024 7:03 AM [employer]CTOR HEMOGLOBIN Early AM 08/30/2024 7:03 AM [employer]CTOR VANCOMYCIN Early AM 08/30/2024 7:03 AM [employer] IN[employer]CTOR GLUCOSE METER Timed 08/29/2024 9:35 PM [employer] IN[employer]CTOR GLUCOSE METER Timed 08/29/2024 5:08 PM [employer] IN[employer]CTOR GLUCOSE METER Timed 08/29/2024 11:57 AM [employer] INSTRUCTOR CBC W PLT NO DIFF Early AM 08/29/2024 11:40 AM [employer] IN[employer]CTOR GLUCOSE METER Timed 08/29/2024 9:17 AM [employer] IN[employer]CTOR BASIC METABOLIC PANEL Early AM 08/29/2024 8:00 AM [employer] IN[employer]CTOR GLUCOSE METER Timed 08/29/2024 12:28 AM [employer] IN[employer]CTOR BLOOD GAS,VENOUS Today 08/28/2024 11:11 PM [employer] IN[employer]CTOR ELECTROLYTE PANEL Today 08/28/2024 11:11 PM [employer]CTOR TROPONIN T (HS) ONE TIME Timed 8:48 PM [employer]CTOR LACTATE VENOUS Timed 08/28/2024 8:48 PM [employer]CTOR URINALYSIS MICROSCOPIC STAT 8:38 PM [employer]CTOR UA W/ SEDIMENT EXAM REFLEXED PER CRITERIA STAT 08/28/2024 8:38 PM [employer] IN[employer]CTOR TROPONIN T (HS) ONE TIME Timed 6:44 PM [employer] IN[employer]CTOR LACTATE VENOUS Timed 08/28/2024 6:44 PM [employer] IN[employer]CTOR XR CHEST 1 VIEW PORTABLE STAT 5:19 PM [employer] CT HEAD BRAIN WO STAT 08/28/2024 5:09 PM [employer]CTOR BLOOD CULTURE STAT 08/28/2024 4:49 PM [employer] INSTRUCTOR EKG 12 LEAD STAT 08/28/2024 4:43 PM [employer] IN[employer]CTOR BLOOD CULTURE STAT 08/28/2024 4:41 PM [employer] INSTRUCTOR HEPATIC FUNCTION PANEL STAT 4:41 PM [employer] INSTRUCTOR MAGNESIUM STAT 08/28/2024 4:41 PM [employer] INSTRUCTOR TROPONIN T (HS) ACUTE W/2HR REFLEX STAT 08/28/2024 4:41 PM [employer] INSTRUCTOR AMMONIA STAT 08/28/2024 4:41 PM [employer] INSTRUCTOR ETHANOL SERUM OR PLASMA STAT 08/28/20 4:41 PM [employer] INSTRUCTOR BLOOD GAS,VENOUS STAT 08/28/2024 4:41 PM [employer] INSTRUCTOR LACTATE VENOUS Today 08/28/2024 4:41 PM [employer] INSTRUCTOR BASIC METABOLIC PANEL STAT 08/28/2024 4:41 PM [employer]IC INSTRUCTOR CBC W PLT NO DIFF STAT 08/28/2024 4:41 PM [employer]IC INSTRUCTOR GLUCOSE METER Routine 08/22/2024 12:40 PM [employer]IC INSTRUCTOR MR HEAD BRAIN STROKE WWO MR ANGIO HEAD WO NECK WWO STAT 08/22/2024 12:29 PM [employer]IC INSTRUCTOR ECHO TTE LIMITED WO CONTRAST W COLOR W LTD DOPPLER Routine 08/22/2024 10:51 AM [employer]IC INSTRUCTOR SCAN-CARDIAC STRIP 08/22/2024 10:20 AM [employer]IC INSTRUCTOR GLUCOSE METER Routine 08/22/2024 8:49 AM [employer]IC INSTRUCTOR PROTEIN ELP,SERUM Early AM 08/22/2024 5:44 AM [employer]IC INSTRUCTOR VITAMIN B12 Early AM 08/22/2024 5:44 AM [employer]IC INSTRUCTOR IRON PLUS IRON BINDING CAP Early AM 08/22 5:44 AM [employer]IC INSTRUCTOR PLATELET COUNT Early AM 08/22/2024 5:44 AM [employer] INSTRUCTOR HEMOGLOBIN Early AM 08/22/2024 5:44 AM [employer]IC INSTRUCTOR MAGNESIUM Early AM 08/22/2024 5:44 AM H[employer]OL [employer]IC INSTRUCTOR CREATININE Early AM 08/22/2024 5:44 AM [employer]OL [employer]IC INSTRUCTOR POTASSIUM Early AM 08/22/2024 5:44 AM [employer]IC INSTRUCTOR HEMOGLOBIN A1C Early AM 08/22/2024 5:44 AM H[employer]IC INSTRUCTOR LIPID PANEL Early AM 08/22/2024 5:44 AM [employer]IC INSTRUCTOR GLUCOSE METER Routine 08/22/2024 5:41 AM H[employer]OL [employer]IC INSTRUCTOR SCAN-CARDIAC STRIP 08/22/2024 4:50 AM H[employer]OL MUSIC INSTRUCTOR FOLIC ACID Timed 08/22/2024 1:52 AM H[employer]OL [employer]IC INSTRUCTOR GLUCOSE METER Routine 08/21/2024 11:39 PM [employer]OL [employer]IC INSTRUCTOR TROPONIN T (HS) ONE TIME Timed 024 11:30 PM [employer]IC INSTRUCTOR CBC WITH AUTO DIFFERENTIAL STAT 08/21 9:38 PM [employer] INSTRUCTOR TROPONIN T (HS) ACUTE W/2HR REFLEX STAT 08/21/2024 9:38 PM [employer]IC INSTRUCTOR BASIC METABOLIC PANEL STAT 08/21/2024 9:38 PM [employer]IC INSTRUCTOR PROTIME-INR STAT 08/21/2024 9:38 PM [employer]IC INSTRUCTOR CBC WITH AUTO DIFFERENTIAL STAT 08/21 9:38 PM H[employer]OL MUSIC INSTRUCTOR EKG 12 LEAD STAT 08/21/2024 9:31 PM [employer]IC INSTRUCTOR GLUCOSE METER Routine 08/21/2024 9:30 [address] [employer] [address] HEAD STROKE PROTOCOL WITH OUT CONTRAST STAT 08/21/2024 9:28 PM [employer]IC INSTRUCTOR EXTENDED HOLTER Routine 08/19/2024 Cerebrovascular accident (CVA) due to stenosis of cerebral artery (HC) SCAN-EVENT MONITOR 08/02/2024 12:00 AM [employer] INSTRUCTOR ANTI HCV Routine 05/11/2022 11:13 AM CDT Cellulitis of skin XR [facility] ([place]) Routine 9:36 AM CDT Enlargement Of Lymph Nodes from Last 3 Months or Most Recently Relevant to Health Maintenance Results * HEMOGLOBIN (10/24/2024 12:46 PM H[employer] INSTRUCTOR) Only the most recent of17 resultswithin the time period is included. HEMOGLOBIN 12.2 11.7 - 15.5 g/dL el? [facility] Blood BLOOD SPECIMEN / Unknown 10/24/2024 12:46 PM [employer] INSTRUCTOR 10/24/2024 12:47 PM H[employer]IC INSTRUCTOR Narrative [facility] - 10/25/2024 4:21 AM H[employer] INSTRUCTOR FASTING:NO FASTING: NO Lindseydariel Concepcion HEMATOLOGY Final Result [facility] [address] [place] [address], [facility] [address] [place] [address] * (ABNORMAL) CREATININE (10/21/2024 3:25 PM [employer]) Only the most recent of6 resultswithin the time period is included. [facility] eGFR 45(L) >90 mL/min/1.7 3m2 10/21/2024 3:47 PM [employer] [facility] Comment:As of 2021, eG FR is calculated by the CKD-EPI creatinine equation without race adjustment. eGFR can be influenced by muscle mass, exercise, and diet. The reported eGFR is an estimation only and is only applicable if the renal function is stable. CREATININE 1.31(H) 0.50 - 0.90 mg/dL 10/21/2024 3:47 PM [employer] [facility] Blood BLOOD SPECIMEN / Unknown Venipuncture / Unknown 10/21/2024 3:25 PM [employer] 10/21/2024 3:27 PM [employer] Ana SNYDER CHEMISTRY Final Result [facility] [address] [place] [address] * COVID-19 MOLECULAR (10/13/2024 4:25 PM [employer]) Only the most recent of2 resultswithin the time period is included. [facility] COVID 19 [place] MOLECULAR Not detected Not detected 10/13/2024 5:32 PM [employer] [facility] TESTING LABORATORY [facility] 10/13/2024 5:32 PM [employer] [facility] Comment:Specimen submitted t o [facility] for testing. Other SPECIMEN FROM NASOPHARYNGEAL STRUCTURE / Unknown Non-Blood / Unknown 10/13/2024 4:25 PM [employer] 10/13/2024 4:29 PM [employer] Lisbeth Key MD MICROBIOLOGY Final Res ult Performing Organization Address [facility] Co de Phone Number [facility] [address] [place] [address] * INFLUENZA A/B PCR (10/13/2024 4:25 PM [employer]) Only the most recent of2 resultswithin the time period is included. [facility] INFLUENZA A PCR NOT Detected 10/13/2024 5:32 PM [facility] INFLUENZA B PCR NOT Detected 10/13/2024 5:32 PM [facility] Other SPECIMEN FROM NASOPHARYNGEAL STRUCTURE / Unknown Non-Blood / Unknown 10/13/2024 4:25 PM [employer] 10/13/2024 4:29 PM [employer] Lisbeth Key MD MICROBIOLOGY Final Res ult Performing Organization Address [facility] de Phone Number [facility] [address] [place] [address] * (ABNORMAL) CBC WITH AUTO DIFFERENTIAL (10/13/2024 4:05 PM [employer]) Only the most recent of6 resultswithin the time period is included. Pathologist [facility] WHITE BLOOD COUNT 8.4 4.5 - 11.0 thou/cu mm 10/13/2024 4:19 PM [facility] RED BLOOD COUNT 4.37 4.00 - 5.20 mil/cu mm 10/13/2024 4:19 PM [facility] HEMOGLOBIN 11.4(L) 12.0 - 16.0 g/dL 10/13/2024 4:19 PM [facility] HEMATOCRIT 39.7 33.0 - 51.0 % 10/13/2024 4:19 PM [facility] MCV 91 80 - 100 fL 10/13/2024 4:19 PM [facility] MCH 26.1 26.0 - 34.0 pg 10/13/2024 4:19 PM [facility] MCHC 28.7(L) 32.0 - 36.0 g/dL 10/13/2024 4:19 PM [facility] RDW 23.3(H) 11.5 - 15.5 % 10/13/2024 4:19 PM [facility] PLATELET COUNT 447(H) 140 - 440 thou/cu mm 10/13/2024 4:19 PM [facility] MPV 8.3 6.5 - 11.0 fL 10/13/2024 4:19 PM [facility] % NEUT 65.7 % 10/13/2024 4:19 PM [facility] % LYMPH 24.8 % 10/13/2024 4:19 PM [facility] % MONO 6.9 % 10/13/2024 4:19 PM [facility] % EOS 2.4 % 10/13/2024 4:19 PM [facility] % BASO 0.2 % 10/13/2024 4:19 PM [facility] ABSOLUTE NEUTROPHILS 5.5 1.7 - 7.0 thou/cu mm 10/13/2024 4:19 PM [facility] ABSOLUTE LYMPHOCYTES 2.1 0.9 - 2.9 thou/cu mm 10/13/2024 4:19 PM [facility] ABSOLUTE MONOCYTES 0.6 <0.9 thou/cu mm 10/13/2024 4:19 PM [facility] ABSOLUTE EOSINOPHILS 0.2 <0.5 thou/cu mm 10/13/2024 4:19 PM [facility] ABSOLUTE BASOPHILS 0.0 <0.3 thou/cu mm 10/13/2024 4:19 PM [facility] Blood BLOOD SPECIMEN / Unknown Venipuncture / Unknown 10/13/2024 4:05 PM [employer] 10/13/2024 4:07 PM [facility] us Lisbeth Enedina Key MD HEMATOLOGY Final Res ult [facility] [address] [place] [address] * (ABNORMAL) LIPID PANEL W REFLEX MEASURED LDL (10/13/2024 4:05 PM [employer]) CHOLESTEROL,TOTAL 114 100 - 199 mg/dL 10/18/2024 2:25 PM [facility] Comment: Cholesterol, Total Reference Ranges Desirable <200 mg/dL Borderline 200-239 mg/dL High >=240 mg/dL TRIGLYCERIDES 186(H) <150 mg/dL 10/18/2024 2:25 PM [facility] HDL CHOLESTEROL 33(L) >40 mg/dL 2:25 PM [facility] NON-HDL CHOLESTEROL 81 <145 mg/dl 10/18/2024 2:25 PM [facility] CHOL/HDL RATIO 3.45 <4.50 10/18/2024 2:25 PM [facility] LDL CHOLESTEROL 44 <=130 mg/dL 10/18/2024 2:25 PM [facility] VLDL CHOLESTEROL 37(H) <=30 mg/dL 10/18/2024 2:25 PM [facility] PROVIDER ORDERED STATUS NOT GIVEN 10/18/2024 2:25 PM [facility] Blood BLOOD SPECIMEN / Unknown Venipuncture / Unknown 10/13/2024 4:05 PM [employer] 10/13/2024 4:07 PM [employer] us Orlando Concepcion DO CHEMISTRY Final Result [facility] [address] [place] [address] * PROTIME-INR (10/13/2024 4:05 PM [employer]) Only the most recent of3 resultswithin the time period is included. INR 1.0 <1.3 10/13/2024 4:18 PM [employer] [facility] PROTIME 11.8 10.6 - 12.4 sec 10/13/2024 4:18 PM [facility] Blood BLOOD SPECIMEN / Unknown Venipuncture / Unknown 10/13/2024 4:05 PM [employer] 10/13/2024 4:07 PM [facility] - 10/13/2024 4:18 PM [facility] Therapeutic Range 2.0-3.0 for most anticoagulated patients 2.5-3.5 or 4.0 for high risk patients The INR is only used for patients on stable oral anticoagulant therapy. It makes no significant contribution to the diagnosis or treatment of patients whose Protime is prolonged for other reasons. INR results are increased when heparin levels exceed 1.0 U/mL, which corresponds to an aPTT >125 seconds if the patient is on UFH. us Lisbeth Key MD HEMATOLOGY Final Res ult [facility] [address] [place] [id number] * (ABNORMAL) BASIC METABOLIC PANEL (10/13/2024 4:05 PM [employer]) Only the most recent of9 resultswithin the time period is included. SODIUM 141 136 - 145 mmol/L 10/13/2024 4:27 PM [facility] POTASSIUM 4.0 3.5 - 5.1 mmol/L 10/13/2024 4:27 PM [facility] CHLORIDE 101 98 - 107 mmol/L 10/13/2024 4:27 PM [facility] CO2,TOTAL 29 22 - 29 mmol/L 10/13/2024 4:27 PM [facility] ANION GAP 11 5 - 18 10/13/2024 4:27 PM [facility] GLUCOSE 203(H) 70 - 99 mg/dL 10/13/2024 4:27 PM [facility] CALCIUM 10.4 8.8 - 10.4 mg/dL 10/13/2024 4:27 PM [facility] Comment: Reference ranges for this test were updated on 07/09/2024 to reflect our healthy population more accurately. Reference range changes are not retroactively applied to results, but previous results using the same methodology can be interpreted in the context of the new reference range. BUN 27(H) 8 - 23 mg/dL 10/13/2024 4:27 PM [facility] CREATININE 1.40(H) 0.50 - 0.90 mg/dL 10/13/2024 4:27 PM [facility] BUN/CREAT RATIO 19 10 - 20 4:27 PM [facility] eGFR 42(L) >90 mL/min/1. 73m2 10/13/2024 4:27 PM [facility] Comment:As of 2021, eG FR is calculated by the CKD-EPI creatinine equation without race adjustment. eGFR can be influenced by muscle mass, exercise, and diet. The reported eGFR is an estimation only and is only applicable if the renal function is stable. Blood BLOOD SPECIMEN / Unknown Venipuncture / Unknown 10/13/2024 4:05 PM [employer] 10/13/2024 4:07 PM [employer] us Lisbeth Key MD CHEMISTRY Final Res ult [facility] [address] [place] [phone] * (ABNORMAL) RED CELL MORPHOLOGY (10/08/2024 11:49 AM [employer]) Only the most recent of5 resultswithin the time period is included. ELLIPTOCYTES Few 10/08/2024 12:58 PM [facility] POLYCHROMASIA Moderate 10/08/2024 12:58 PM [facility] TARGET CELLS Few 10/08/2024 12:58 PM [facility] RBC COMMENT Present(A) RBC morphology appears normal, RBC morphology within normal limits for newborns. 10/08/2024 12:58 PM [facility] Blood BLOOD SPECIMEN / Unknown Venipuncture / Unknown 10/08/2024 11:49 AM [employer] 10/08/2024 11:58 AM [employer]CTOR us Rafaela SNYDER HEMATOLOGY Fin al Result Performing Organization Address City/[facility]/ZIP Co de Phone Number [facility] [address] [place] [address] * (ABNORMAL) PLATELET ESTIMATE (10/08/2024 11:49 AM H[employer]) Only the most recent of5 resultswithin the time period is included. PLATELET ESTIMATE Increased (A) Adequate, No estimate 10/08/2024 12:58 PM [employer]CTOR [facility] Blood BLOOD SPECIMEN / Unknown Venipuncture / Unknown 10/08/2024 11:49 AM H[employer] IN[employer]CTOR 10/08/2024 11:58 AM [employer] IN[employer]CTOR us Rafaela SNYDER HEMATOLOGY Fin al Result Performing Organization Address [facility] de Phone Number [facility] [address] [place] [address] * MANUAL DIFFERENTIAL (10/08/2024 11:49 AM H[employer]) Only the most recent of4 resultswithin the time period is included. % NEUTROPHILS 71.2 % 10/08/2024 1:09 PM [facility] % LYMPHOCYTES 18.4 % 10/08/2024 1:09 PM [facility] % MONOCYTES 8.4 % 10/08/2024 1:09 PM [facility] % EOSINOPHILS 1.8 % 10/08/2024 1:09 PM [facility] % BASOPHILS 0.2 % 10/08/2024 1:09 PM [facility] Blood BLOOD SPECIMEN / Unknown Venipuncture / Unknown 10/08/2024 11:49 AM H[employer] IN[employer]CTOR 10/08/2024 11:58 AM [employer] us Rafaela SNYDER HEMATOLOGY Fin al Result Performing Organization Address City/[facility]/ZIP Co de Phone Number [facility] [address] [place] [address] * (ABNORMAL) GLUCOSE METER (10/03/2024 1:01 PM [employer]) Only the most recent of42 resultswithin the time period is included. Pathologist [facility] GLUCOSE METER 189(H) 65 - 100 mg/dL 10/03/2024 1:01 PM [employer]CTOR [facility] Blood BLOOD SPECIMEN / Unknown 10/03/2024 1:01 PM [employer]CTOR 10/03/2024 1:01 PM [employer]CTOR Janell Stevens MD CHEMISTRY Fin al Result Performing Organization Address City/[facility]/ZIP Co de Phone Number [facility] [address] [place] [address] * TRANSFUSE RBC (NURSE COMMUNICATION ORDER) (10/02/2024 6:51 PM [employer]) Blood BLOOD SPECIMEN / Unknown Janell Stevens MD NURSING BLOOD BANK Final Result * RBC W/O TYPE & SCREEN (10/02/2024 4:05 PM [employer]) Only the most recent of5 resultswithin the time period is included. Pathologist [facility] QUANTITY 1 10/02/2024 4:05 PM [employer]CTOR [facility] BLOOD BANK Blood BLOOD SPECIMEN / Unknown 10/02/2024 3:47 PM [employer]CTOR Janell Stevens MD BLOOD BANK Fin al Result [facility] BLOOD BANK [address] [place] [address] * RED BLOOD CELLS EA UNIT (10/02/2024 1:16 PM [employer]) Only the most recent of6 resultswithin the time period is included. Pathologist [facility] CROSSMATCH Compatible Compatible [facility] BLOOD BANK PRODUCT BLOOD TYPE B Rh Positive [facility] BLOOD BANK PRODUCT ID NUMBER [id number] [facility] BLOOD BANK PRODUCT STATUS Transfused [facility] BLOOD BANK PRODUCT DESCRIPTION RBC -1 LR [facility] BLOOD BANK PRODUCT CODE [id number] [facility] BLOOD BANK ISSUE DATE/TIME 10/02/24 16:19 [facility] BLOOD BANK Michael Cisneros DO BLOOD BANK Edited Resu lt - Final [facility] BLOOD BANK [address] [place] [address] * TRANSFUSE RBC (NURSE COMMUNICATION ORDER) (09/30/2024 9:24 PM [employer]) Blood BLOOD SPECIMEN / Unknown Janell Stevens MD NURSING BLOOD BANK Final Result * TRANSFUSE RBC (NURSE COMMUNICATION ORDER) (09/30/2024 2:36 PM [employer]) Blood BLOOD SPECIMEN / Unknown Janell Stevens MD NURSING BLOOD BANK Final Result * (ABNORMAL) OCCULT BLOOD IFOBT STOOL (09/30/2024 10:07 AM H[employer] INSTRUCTOR) STOOL BLOOD ,IFOBT Positive(A ) Negative 09/30/2024 10:24 AM H[employer] IN[employer]CTOR [facility] Stool STOOL SPECIMEN / Unknown Non-Blood / Unknown 09/30/2024 10:07 AM H[employer]CTOR 09/30/2024 10:16 AM [employer]CTOR Kermit Guo DO LABORATORY Eli l Result [facility] [address] [place] [address] * (ABNORMAL) BILIRUBIN,TOTAL/DIRECT (09/30/2024 5:56 AM H[employer]CTOR) BILIRUBIN,TOTA L 1.3(H) 0.0 - 1.2 mg/dL 09/30/2024 10:17 AM [employer] IN[employer]CTOR [facility] BILIRUBIN,DIRE CT 0.5(H) 0.0 - 0.2 mg/dL 09/30/2024 10:17 AM H[employer] INSTRUCTOR [facility] BILIRUBIN,ER[place] RECT 0.8 0.2 - 0.8 mg/dL 09/30/2024 10:17 AM H[employer]IC INSTRUCTOR [facility] Blood BLOOD SPECIMEN / Unknown Venipuncture / Unknown 09/30/2024 5:56 AM H[employer]IC INSTRUCTOR 09/30/2024 6:26 AM [employer]CTOR Janell Stevens MD CHEMISTRY Fin al Result Performing Organization Address City/[facility]/ZIP Co de Phone Number [facility] [address] [place] [address] * PLATELET COUNT (09/30/2024 5:56 AM H[employer]CTOR) Only the most recent of2 resultswithin the time period is included. PLATELET COUNT 368 140 - 440 thou/cu mm 09/30/2024 6:40 AM H[employer] IN[employer]CTOR [facility] MPV 9.8 6.5 - 11.0 fL 09/30/2024 6:40 AM H[employer] IN[employer]CTOR [facility] Blood BLOOD SPECIMEN / Unknown Venipuncture / Unknown 09/30/2024 5:56 AM H[employer]IC INSTRUCTOR 09/30/2024 6:27 AM [employer]CTOR Kermit Guo DO HEMATOLOGY Eli l Result [facility] [address] [place] [address] * (ABNORMAL) WHITE BLOOD COUNT (09/30/2024 5:56 AM H[employer] INSTRUCTOR) WHITE BLOOD COUNT 11.6(H) 4.5 - 11.0 thou/cu mm 09/30/2024 6:40 AM H[employer] INSTRUCTOR [facility] Blood BLOOD SPECIMEN / Unknown Venipuncture / Unknown 09/30/2024 5:56 AM H[employer]IC INSTRUCTOR 09/30/2024 6:27 AM H[employer] INSTRUCTOR Kermit Guo DO HEMATOLOGY Eli l Result Performing Organization Address [facility]/ZIP Co de Phone Number [facility] [address] [place] [address] * SODIUM (09/30/2024 5:56 AM H[employer]CTOR) SODIUM 137 136 - 145 mmol/L 09/30/2024 6:47 AM H[employer] INSTRUCTOR [facility] Blood BLOOD SPECIMEN / Unknown Venipuncture / Unknown 09/30/2024 5:56 AM H[employer] INSTRUCTOR 09/30/2024 6:26 AM H[employer] INSTRUCTOR Kermit Guo DO CHEMISTRY Eli l Result Performing Organization Address [facility] Co de Phone Number [facility] [address] [place] [phone] * POTASSIUM (09/30/2024 5:56 AM H[employer]IC INSTRUCTOR) Only the most recent of4 resultswithin the time period is included. POTASSIUM 4.7 3.5 - 5.1 mmol/L 09/30/2024 6:47 AM H[employer] IN[employer]CTOR [facility] Blood BLOOD SPECIMEN / Unknown Venipuncture / Unknown 09/30/2024 5:56 AM H[employer] S[employer]OL MUSIC INSTRUCTOR 09/30/2024 6:26 AM H[employer] INSTRUCTOR Kermit Guo DO CHEMISTRY Eli l Result Performing Organization Address City/[facility]/ZIP Co de Phone Number [facility] [address] [place] [address] * ALT (SGPT) (09/30/2024 5:56 AM H[employer]CTOR) ALT (SGPT) 19 10 - 35 IU/L 09/30/2024 6:47 AM H[employer]IC INSTRUCTOR [facility] Blood BLOOD SPECIMEN / Unknown Venipuncture / Unknown 09/30/2024 5:56 AM H[employer] INSTRUCTOR 09/30/2024 6:26 AM H[employer] INSTRUCTOR Kermit Guo DO CHEMISTRY Eli l Result Performing Organization Address [facility]/ZIP Co de Phone Number [facility] [address] [place] [address] * (ABNORMAL) AST (SGOT) (09/30/2024 5:56 AM H[employer]CTOR) AST (SGOT) 51(H) 10 - 35 IU/L 09/30/2024 6:47 AM H[employer] INSTRUCTOR [facility] Blood BLOOD SPECIMEN / Unknown Venipuncture / Unknown 09/30/2024 5:56 AM H[employer]IC INSTRUCTOR 09/30/2024 6:26 AM H[employer] IN[employer]CTOR Kermit Guo DO CHEMISTRY Eli l Result Performing Organization Address [facility] Co de Phone Number [facility] [address] [place] [address] * (ABNORMAL) ALK PHOSPHATASE (09/30/2024 5:56 AM H[employer] IN[employer]CTOR) ALK PHOSPHATASE 152(H) 35 - 104 IU/L 09/30/2024 6:47 AM H[employer]IC INSTRUCTOR [facility] Blood BLOOD SPECIMEN / Unknown Venipuncture / Unknown 09/30/2024 5:56 AM H[employer] MUSIC INSTRUCTOR 09/30/2024 6:26 AM H[employer] INSTRUCTOR Kermit Guo DO CHEMISTRY Eli l Result Performing Organization Address [facility] Co de Phone Number [facility] [address] [place] [address] * MAGNESIUM (09/30/2024 5:56 AM H[employer]OL [employer]IC INSTRUCTOR) Only the most recent of6 resultswithin the time period is included. MAGNESIUM 2.1 1.6 - 2.4 mg/dL 09/30/2024 6:47 AM H[employer] INSTRUCTOR [facility] Blood BLOOD SPECIMEN / Unknown Venipuncture / Unknown 09/30/2024 5:56 AM H[employer] INSTRUCTOR 09/30/2024 6:26 AM H[employer] INSTRUCTOR Kermit Rowe Cerora DO CHEMISTRY Eli l Result Performing Organization Address City/[facility]/ZIP Co de Phone Number [facility] [address] [place] [address] * (ABNORMAL) LIPASE (09/30/2024 5:56 AM H[employer]OL [employer]IC INSTRUCTOR) Only the most recent of2 resultswithin the time period is included. LIPASE 62.9(H) 13.0 - 60.0 IU/L 09/30/2024 6:47 AM H[employer]OL [employer]IC INSTRUCTOR [facility] Blood BLOOD SPECIMEN / Unknown Venipuncture / Unknown 09/30/2024 5:56 AM H[employer] SCHOOL MUSIC INSTRUCTOR 09/30/2024 6:26 AM HIGH SCHOOL MUSIC INSTRUCTOR [facility] Eli l Result Performing Organization Address [facility] de Phone Number [facility] [address] [place] [address] * CELIAC DISEASE HLA DQ ASSOC (09/29/2024 8:53 PM H[employer]CTOR) DQ2 (DQA1 0501/0505,DQB1 02XX) Negative 10/09/2024 6:07 PM H[employer]OL [employer] INSTRUCTOR [facility] DQ8 (DQA1 03XX, DQB1 0302) Negative 10/09/2024 6:07 PM H[employer] INSTRUCTOR [facility] Comment: Final Results: DQB1*05:EKTBV,06:EWGFB DQA1*01:EWDRD,01:EWDRE Code Translation: EKTBV 05:03:02/06:08:06/08:13:15:16 :2305:24:2805:38/05:39/05:40 /05:41N/05:42/05:43/05:50/05:56/05:66 /05:67/05:78/05:85/05:91/05:96/05:98 /05:108/05:109/05:121/05:130/05:134/05:140 /05:147/05:149/05:161/05:191/05:200/05:201 /05:202/05:203/05:204/05:205/05:206N /05:208N/05:209/05:211/05:212/05:213 /05:214/05:218/05:220/05:221/05:224N /05:233/05:235N/05:236N/05:245/05:259 /05:260/05:264/05:265N/05:273N/05:280 /05:281/05:282/05:289/05:293/05:294/05:296 /05:305/05:306/05:312/05:314/05:318 EWDRD 01:09/04:04:05:08/04:18:22:27 :29/:34/:35/01:37/:49/01:53/01:55 /01:56/:59/01:6001:61:64/:66:67 :74:77/:80/:83:86/:88 /:89:95/:96:98:99/:107 /01:110/01:112/01:114/:117/:118/:120 /01:122Q/01:126/01:130/01:137 EWDRE 01:03:10:14:15N/01:17/:30/01:45 /01:47/01:50/01:57/01:65/01:68/:70/01:76 /:78/01:79/01:82/01:84/:87/01:97 /:102/01:108/01:113N/01:119/01:121 /01:123/:136N/01:138/01:139 EWGFB 06:03/06:28/06:31/06:41/06:44/06:59/06:61 /06:64/06:65/06:90/06:91/06:92/06:110 /06:128/06:141/06:143/06:144N/06:148 /06:154/06:184/06:185/06:187/06:191/06:195 /06:196/06:199/06:203/06:210/06:218/06:221 /06:223/06:234/06:238/06:244/06:248/06:250 /06:253/06:259/06:269/06:272/06:278/06:279 /06:316/06:327/06:328/06:329/06:331/06:334 /06:336/06:345N/06:346/06:350/06:352 /06:360/06:365/06:367/06:371/06:373/06:378 /06:385/06:391/06:392/06:394N/06:396 /06:403/06:410/06:423N/06:424/06:425 /06:428/06:433/06:440/06:443/06:450 /06:454N/06:459/06:460/06:470/06:474 /06:478/06:480 The patient is not positive for any of the HLA DQ risk alleles. Celiac disease risk from the HLA DQA/DQB genotype is approximately 1:2518 (<0.04%). This result essentially rules out celiac disease. Allele interpretation for all loci based on IMGT/HLA database version 3.55 HLA Lab CLIA ID Number [id number] Greater than 95% of celiac patients are positive for either DQ2 or DQ8 (Mehreen and Winter, (1993) Gastroenterology 105:910-922). However these antigens may also be present in patients who do not have Celiac disease. Comment Celiac HLA Comment 2024 6:07 PM [facility]) Comment: This test was performed using Polymerase Chain Reaction (PCR) and Sequence Specific Oligonucleotide Probes (SSOP) ([employer]) technique. Sequence Based Typing (SBT) may be used as a supplemental method when necessary. If you have questions, please call HLA customer service at or email at [email or web address]. Addit Info Celiac HLA Comment 10/09/2024 6:07 PM HIGH SCHOOL [employer]IC INSTRUCTOR [facility] ([facility]) Comment: References: 1. Amandeep POMPA and Albert Feliciano. Celiac Disease. N Eng J Med 2007; 357:2635-1483. 2. Aydenni F, Kumari B, Bonalizo M et al. HLA-DQ and risk gradient for celiac disease. Hum Immunol 2009; 70:55-59. 3. Pieter MM, Caroline TC, Brayan FM et al. Stratifying risk for celiac disease in a large at-risk [facility] population by using HLA alleles. Clin Gastroenterol Hepatol 2009; 7:966-971. 4. Mehreen JONES and Nikhil BA. (2005). Celiac Disease Genetics: Current Concepts and Practical Applications. Clin Gastroenterol and Hepat 3:843-851. 5. Swati CL, Giovany DO, Amandeep POMPA, et al. Celiac Disease. In: Lynsey RA, Boy TC, Don CR, Ivett K, editors. [employer]), [facility], [place], March 06, 2008:1-27. http://www.ncbi.nlm.nih.gov/bookshelf/br.fcgi?book=genepart=celiac PMID [id number] (PubMed) 6. Sahil Huntley. Emerging concepts in celiac disease. Curr Opin Pediatr 2004;16:552-559. Blood BLOOD SPECIMEN / Unknown Venipuncture / Unknown 09/29/2024 8:53 PM [employer] 09/29/2024 8:56 PM [employer] Narrative [facility] ([facility] - 10/09/2024 6:07 PM [employer] Performed at: [facility] [address] [place], [place] [id number] Strainer Mill Operator: Patricia Borden PhD, Phone: [phone] Performed at: [address] [id number] Strain[employer] Mill Operator: Sampson Hoyos MD, Phone: [phone] Kermit Guo DO SEND OUTS Eli l Result Performing Organization Address [facility] Co de Phone Number [facility] ([facility]) [address] [place] [address] * TRANSFUSE RBC (NURSE COMMUNICATION ORDER) (09/29/2024 7:59 PM [employer]) Blood BLOOD SPECIMEN / Unknown Michael Cisneros DO NURSING BLOOD BANK Final Re sult * (ABNORMAL) LC ERYTHROPOIETIN (EPO), SERUM (09/29/2024 2:41 PM [employer]) Pathologist [facility] Erythropoietin 155.0(H) 2.6 - 18.5 mIU/mL 10/02/2024 6:08 AM [employer]CTOR [facility] ([facility]) Comment: [employer] DxI 800 Immunoassay System Values obtained with different assay methods or kits cannot be used interchangeably. Results cannot be interpreted as absolute evidence of the presence or absence of malignant disease. Blood BLOOD SPECIMEN / Unknown Venipuncture / Unknown 09/29/2024 2:41 PM [employer]OL [employer]IC [employer]CTOR 09/29/2024 2:48 PM [employer]IC INSTRUCTOR Narrative [facility] ([facility]) - 10/02/2024 6:08 AM [employer]IC INSTRUCTOR Performed at: [address] [id number] [employer] Operator: Bradley Ortiz MD, Phone: [phone] Kermit Guo DO LABORATORY Eli l Result Performing Organization Address [facility]/ZIP Co de Phone Number [facility] ([facility]) [address] [place] [address] * (ABNORMAL) SEDIMENTATION RATE (09/29/2024 2:41 PM H[employer] S[employer]OL MUSIC INSTRUCTOR) Pathologist [facility] SEDIMENTATION RATE 53(H) <30 mm/hr 2024 3:02 PM HIGH S[employer]OL [employer]IC INSTRUCTOR [facility] Blood BLOOD SPECIMEN / Unknown Venipuncture / Unknown 09/29/2024 2:41 PM H[employer] SCHOOL MUSIC INSTRUCTOR 09/29/2024 2:47 PM H[employer] S[employer]OL MUSIC INSTRUCTOR Kermit Guo DO HEMATOLOGY Eli l Result Performing Organization Address City/[facility]/ZIP Co de Phone Number [facility] [address] [place] [address] * CELIAC CASCADE PANEL (09/29/2024 2:41 PM HIGH SCHOOL MUSIC INSTRUCTOR) Pathologist [facility] IGA 170.83 84.50 - 499.00 mg/dL 10/01/2024 12:10 PM HIGH SCHOOL MUSIC INSTRUCTOR [facility] Blood BLOOD SPECIMEN / Unknown Venipuncture / Unknown 09/29/2024 2:41 PM HIGH SCHOOL MUSIC INSTRUCTOR 09/29/2024 3:46 PM HIGH SCHOOL MUSIC INSTRUCTOR Narrative [facility] - 10/01/2024 12:10 PM H[employer] SCHOOL MUSIC INSTRUCTOR Reflexed to Tissue Transglutaminase IgA Kermit Guo DO SEND OUTS Eli l Result Performing Organization Address [facility] Co de Phone Number [facility] [address] [place] [address], [place] * (ABNORMAL) PARVOVIRUS B19 HUMAN IGG/IGM (09/29/2024 2:41 PM HIGH SCHOOL MUSIC INSTRUCTOR) Pathologist [facility] Parvo B19 IgG 4.2(H) 0.0 - 0.8 index 10/02/2024 1:08 PM HIGH SCHOOL MUSIC INSTRUCTOR [facility] Comment: Negative <0.9 Equivocal 0.9 - 1.1 Positive >1.1 Parvo B19 IgM 0.4 0.0 - 0.8 index 10/02/2024 1:08 PM HIGH SCHOOL MUSIC INSTRUCTOR [facility] Comment: Negative <0.9 Equivocal 0.9 - 1.1 Positive >1.1 Blood BLOOD SPECIMEN / Unknown Venipuncture / Unknown 09/29/2024 2:41 PM HIGH SCHOOL MUSIC INSTRUCTOR 09/29/2024 2:48 PM HIGH SCHOOL MUSIC INSTRUCTOR Narrative [facility] ([facility]) - 10/02/2024 1:08 PM HIGH SCHOOL MUSIC INSTRUCTOR Performed at: [address] [place] [address] [place] [id number] [employer] Operator: Bradley Ortiz MD, Phone: [phone] [facility] Jae Guo DO SEND OUTS Eli l Result Performing Organization Address City/[facility] Co de Phone Number [facility] ([facility]) [address] [place] [address], * (ABNORMAL) COPPER SERUM (09/29/2024 2:41 PM HIGH SCHOOL MUSIC INSTRUCTOR) Pathologist [facility] COPPER BLOOD 1.96(H) 0.65 - 1.92 ug/ml 10/04/2024 12:41 PM HIGH SCHOOL MUSIC INSTRUCTOR [facility] Comment: Analysis performed by Inductively-Coupled Plasma/Mass Spectrometry (ICP/MS). This test was developed and its performance characteristics determined by [facility]. It has not been cleared or approved by the Food and Drug Administration. Blood BLOOD SPECIMEN / Unknown Venipuncture / Unknown 09/29/2024 2:41 PM HIGH SCHOOL MUSIC INSTRUCTOR 09/29/2024 2:47 PM HIGH SCHOOL MUSIC INSTRUCTOR Kermit Torresfrances Bentoncharles DO SEND OUTS Eli l Result Performing Organization Address City/[facility]/ZIP Co de Phone Number [facility] [address] [place] [address], [place] * LACTATE VENOUS (09/29/2024 2:41 PM HIGH SCHOOL MUSIC INSTRUCTOR) Only the most recent of4 resultswithin the time period is included. LACTATE,VENOUS 1.4 0.5 - 2.0 mmol/L 09/29/2024 3:10 PM HIGH SCHOOL MUSIC INSTRUCTOR [facility] Blood BLOOD SPECIMEN / Unknown Venipuncture / Unknown 09/29/2024 2:41 PM HIGH SCHOOL MUSIC INSTRUCTOR 09/29/2024 2:47 PM HIGH SCHOOL MUSIC INSTRUCTOR Kermit Guo DO CHEMISTRY Eli l Result Performing Organization Address [facility] Co de Phone Number [facility] [address] [place] [address] * (ABNORMAL) TSH (09/29/2024 2:41 PM HIGH SCHOOL MUSIC INSTRUCTOR) TSH 8.55(H) 0.27 - 4.20 uIU/mL 09/29/2024 4:22 PM HIGH SCHOOL MUSIC INSTRUCTOR [facility] Blood BLOOD SPECIMEN / Unknown Venipuncture / Unknown 09/29/2024 2:41 PM HIGH SCHOOL MUSIC INSTRUCTOR 09/29/2024 3:43 PM HIGH SCHOOL MUSIC INSTRUCTOR Narrative [facility] - 09/29/2024 4:22 PM HIGH SCHOOL MUSIC INSTRUCTOR In Adults, TSH values between 5.00 and 10.00 uIU/ml do not necessarily indicate the presence of Hypothyroidism. Correlation with clinical findings such as presence of goiter and/or Thyroperoxidase (TPO) Antibody may be helpful. For more information please refer to NOY 2004; 291: 228-238. Kermit Guo DO CHEMISTRY Eli l Result Performing Organization Address [facility] Co de Phone Number [facility] [address] [place] [address] * PERIPHERAL BLD MORPHOLOGY (09/29/2024 2:41 PM HIGH S[employer]OL MUSIC INSTRUCTOR) Case Report Special Hematology Report Case: [id number] Authorizing Provider: Kermit Guo, Collected: 09/29/2024 1441 DO Ordering Location: [facility] Received: 09/29/[address] [place] [address] Pathologist: Isaac Hobbs MD Specimen: Blood 10/01/2024 10:37 AM HIGH SCHOOL MUSIC INSTRUCTOR [facility]-C ENTRAL LABORATORY Final Diagnosis PERIPHERAL BLOOD: 1. Hypochromic, normocytic anemia most consistent with iron deficiency 2. No microangiopathic , dysplastic, or neoplastic changes detected 3. Slight absolute monocytosis, nonspecific 4. See comment 10/01/2024 10:37 AM HIGH SCHOOL MUSIC INSTRUCTOR [facility] ENTRAL LABORATORY Comment Based on the recent ferritin and iron panel data from 09/29/2024, the findings are most consistent with iron deficiency anemia. The most common cause for iron deficiency is occult anatomic blood loss. Other etiologies include deficient nutritional intake, and malabsorption issues (Helicobactor pylori, gastric bypass, Crohn's disease, celiac sprue, excessive use of antacids containing calcium carbonate). There are no features of hemolysis or findings to suggest a primary bone marrow disorder. 10/01/2024 10:37 AM [facility]OR[facility]-C [facility] LABORATORY Clinical Information Anemia with recent negative endoscopies. Physician requests peripheral blood smear morphology review for signs of hemolysis or malignancy. 10/01/2024 10:37 AM [facility]-C [facility] CBC and Differential HEMATOLOGY PARAMETERS Tested at: [facility] RESULTS EXPECTED VALUES WBC: 9.1 4.5-94j0924/cumm RBC: 2.57 4.00-5.20 mil/cummDECREASE D HGB: 6.3 12-16 gm/dl DECREASED HCT: 22.5 33-51% DECREASED MCV: 88.0 80-100 fl NORMOCYTIC MCH: 24.5 26-34 pg DECREASED MCHC: 28.0 32-36 gm/dl HYPOCHROMIC RDW: 25.3 11.5-15.5% ELEVATED PLT: 421 140-077c2230/uL MPV: 10.0 6.5-11 fl Retic: 9.0 0.5-1.5% ELEVATED Differential Absolute (%) Expected (%) (x10*9/L) (x10*9/L) Neutrophils: 6.0 (65.9) 1.7-7.0 (42-72%) Lymphocytes: 1.9 (20.9) 0.9-2.9 (20-44%) Monocytes: 1.0 (11) <0.9 (0-11%) ELEVATED Eosinophils: 0.2 (2.2) <0.5 (0-2%) 10/01/2024 10:37 AM [facility]-C [facility] Microscopic Description The final diagnosis is based on microscopic examination of an appropriately stained blood smear. 10/01/2024 10:37 AM HIGH SCHOOL MUSIC INSTRUCTOR [facility] LABORATORY-C ENTRAL LABORATORY Additional Information Interpreted at [facility], Central Laboratory - [address] [facility] [address], [place] [address] 10/01/2024 10:37 AM HIGH SCHOOL MUSIC INSTRUCTOR [facility] LABORAT[facility]-C ENTRAL LABORATORY Blood BLOOD SPECIMEN / Unknown Venipuncture / Unknown 09/29/2024 2:41 PM HIGH SCHOOL MUSIC INSTRUCTOR 09/29/2024 3:21 PM HIGH SCHOOL MUSIC INSTRUCTOR Comment:CURRENT MEDICATIONSC urrent Facility-Administered Medications: NaCl 0.9% (ADV; MINIBAG+) IV solution, 25 mL/hr, Intravenous, continuous, Michael Cisneros, DOCurrent Outpatient Medications: ALPRAZolam (XANAX) 0.25 mg tablet, Take 1 Tablet (0.25 mg) by mouth at bedtime if needed for Anxiety., Disp: 5 Tablet, Rfl: 0 ascorbic acid, vitamin C, (Vitamin C) 500 mg tablet, Take 500 mg by mouth once daily. Take with iron supplement, Disp: , Rfl: atorvastatin (LIPITOR) 80 mg tablet, Take 1 Tablet (80 mg) by mouth at bedtime., Disp: 90 Tablet, Rfl: 3 blood sugar diagnostic (Accu-Chek Guide test strips) strip, Dispense item covered by pt ins. E11.9 IDDM type II - Test 3 times/day., Disp: 200 Each, Rfl: 3 brimonidine 0.2 % ophthalmic solution, Place 1 Drop into left eye at bedtime., Disp: , Rfl: clobetasol (TEMOVATE) 0.05 % cream, Apply 1 Application topically to affected area(s) 2 times daily if needed., Disp: , Rfl: famotidine (PEPCID) 40 mg tablet, Take 40 mg by mouth once daily if needed for Heartburn or GI Upset., Disp: , Rfl: ferrous sulfate 325 mg delayed release tablet, Take 1 Tablet (325 mg) by mouth once daily with a meal., Disp: 90 Tablet, Rfl: 3 hydrALAZINE (APRESOLINE TABLET) 50 mg tablet, Take 1 Tablet (50 mg) by mouth two times daily., Disp: 60 Tablet, Rfl: 0 hydroCHLOROthiazide 12.5 mg tablet, Take 1 Tablet (12.5 mg) by mouth once daily in the morning., Disp: 30 Tablet, Rfl: 0 lancets, Dispense item covered by pt ins. E11.65 IDDM type II, uncontrolled - Test 3 times/day., Disp: 100 Each, Rfl: 0 levETIRAcetam (Keppra) 500 mg tablet, Take 1 Tablet (500 mg) by mouth two times daily., Disp: 60 Tablet, Rfl: 2 levothyroxine (SYNTHROID) 75 mcg tablet, Take 1 Tablet (75 mcg) by mouth before breakfast., Disp: 90 Tablet, Rfl: 3 lisinopriL (PRINIVIL; ZESTRIL) 10 mg tablet, Take 1 Tablet (10 mg) by mouth once daily., Disp: 30 Tablet, Rfl: 0 loperamide (Imodium A-D) 2 mg tablet, 1 every 4 hrs as needed diarrhea, Disp: 30 Tablet, Rfl: 0 meclizine (ANTIVERT) 25 mg tablet, Take 1 Tablet (25 mg) by mouth 3 times daily if needed for Vertigo., Disp: 30 Tablet, Rfl: 0 nystatin powder (MYCOSTATIN) powder, Apply topically to affected area(s) two times daily. (Patient taking differently: Apply topically to affected area(s) 2 times daily if needed (Skin issue as directed).), Disp: 15 g, Rfl: 0 ondansetron (ZOFRAN ODT) 4 mg disintegrating tablet, Place 1 Tablet (4 mg) on the tongue every 8 hours if needed for Nausea/Vomiting., Disp: 30 Tablet, Rfl: 0 pen needle (Pentips) 31 gauge x 3/16 (disposable insulin pen needle), Remove the 2 covers on the pen needle before administering medication dose., Disp: 100 Each, Rfl: 0 pioglitazone (ACTOS) 45 mg tablet, Take 1 Tablet (45 mg) by mouth once daily., Disp: 90 Tablet, Rfl: 3 timoloL maleate (TIMOPTIC) 0.5 % ophthalmic solution, Place 1 Drop into right eye at bedtime., Disp: , Rfl: triamcinolone (ARISTOCORT; KENALOG) 0.1 % cream, Apply topically to affected area(s) three times daily., Disp: 80 g, Rfl: 0 us Kermit Guo DO HEMATOLOGY Eli l Result [facility] [address] [place] [address], [place] * (ABNORMAL) LD,TOTAL (09/29/2024 2:41 PM H[employer] SCHOOL MUSIC INSTRUCTOR) Pathologist [facility] LD,TOTAL 530(H) 135 - 214 IU/L 09/29/2024 4:24 PM HIGH SCHOOL MUSIC INSTRUCTOR [facility] Blood BLOOD SPECIMEN / Unknown Venipuncture / Unknown 09/29/2024 2:41 PM HIGH SCHOOL MUSIC INSTRUCTOR 09/29/2024 3:43 PM HIGH SCHOOL MUSIC INSTRUCTOR [facility] Jae GeriMobovivo DO CHEMISTRY Eli l Result Performing Organization Address [facility] de Phone Number [facility] [address] [place] [address] * TISSUE TRANSGLUTAMINASE IGA (09/29/2024 2:41 PM HIGH SCHOOL MUSIC INSTRUCTOR) Pathologist [facility] TISSUE TRANSGLUTAMINASE IGA <1.2 <4.0 U/ml 10/02/2024 1:16 PM HIGH SCHOOL MUSIC INSTRUCTOR [facility] TRAL LABORATORY Comment:Celiac disease unlik stephen unless IgA deficient. Recommend IgA levels if not already performed. Blood BLOOD SPECIMEN / Unknown Venipuncture / Unknown 09/29/2024 2:41 PM HIGH SCHOOL MUSIC INSTRUCTOR 09/29/2024 3:46 PM HIGH SCHOOL MUSIC INSTRUCTOR Narrative [facility] - 10/02/2024 1:16 PM HIGH SCHOOL MUSIC INSTRUCTOR Negative <4.0 Weak Positive 4-10 Positive >10.0 This test should not be solely relied upon to establish a diagnosis of celiac disease. Affected individuals who have been on a gluten-free diet prior to testing may have a negative result. These results were obtained using the [employer] Quanta Lite R h-tTG IgA KUSHAL assay. Values obtained from other manufacturers' assay methods may not be used interchangeably. Kermit Guo DO SEND OUTS Eli l Result Performing Organization Address City/[facility]/ZIP Co de Phone Number [facility] [address] [place] [address], [place] * APTT (09/29/2024 2:41 PM HIGH SCHOOL MUSIC INSTRUCTOR) Pathologist [facility] APTT 31 25 - 36 sec 09/29/2024 2:59 PM HIGH SCHOOL MUSIC INSTRUCTOR [facility] Blood BLOOD SPECIMEN / Unknown Venipuncture / Unknown 09/29/2024 2:41 PM HIGH SCHOOL MUSIC INSTRUCTOR 09/29/2024 2:47 PM HIGH SCHOOL MUSIC INSTRUCTOR Narrative [facility] - 09/29/2024 2:59 PM HIGH SCHOOL MUSIC INSTRUCTOR Therapeutic Range: 59-89 seconds Kermit Guo DO HEMATOLOGY Eli l Result Performing Organization Address City/[facility]/ZIP Co de Phone Number [facility] [address] [place] [address] * (ABNORMAL) FIBRINOGEN,QUANTITATIVE (09/29/2024 2:41 PM HIGH SCHOOL MUSIC INSTRUCTOR) [facility] FIBRINOGEN,NARENDRA NTITATIVE 513(H) 193 - 401 mg/dL 09/29/2024 2:59 PM HIGH SCHOOL MUSIC INSTRUCTOR [facility] Blood BLOOD SPECIMEN / Unknown Venipuncture / Unknown 09/29/2024 2:41 PM HIGH SCHOOL MUSIC INSTRUCTOR 09/29/2024 2:47 PM HIGH SCHOOL MUSIC INSTRUCTOR Kermit Guo DO HEMATOLOGY Eli l Result Performing Organization Address [facility] Co de Phone Number [facility] [address] [place] [address] * (ABNORMAL) RETICULOCYTES (09/29/2024 2:41 PM HIGH SCHOOL MUSIC INSTRUCTOR) Pathologist [facility] RETIC% 9.0(H) 0.5 - 1.5 % 09/30/2024 1:01 PM HIGH SCHOOL MUSIC INSTRUCTOR [facility] RETIC (ABSOLUTE) 0.24(H) 0.03 - 0.08 mil/cu mm 09/30/2024 1:01 PM HIGH SCHOOL MUSIC INSTRUCTOR [facility]ORAT[facility] Blood BLOOD SPECIMEN / Unknown Venipuncture / Unknown 09/29/2024 2:41 PM HIGH SCHOOL MUSIC INSTRUCTOR 09/29/2024 2:47 PM HIGH SCHOOL MUSIC INSTRUCTOR Kermit BentonHubub DO HEMATOLOGY Eli l Result [facility] [address] [place] [address], [place] * T4,FREE (09/29/2024 2:41 PM HIGH SCHOOL MUSIC INSTRUCTOR) T4,FREE 1.17 0.93 - 1.70 ng/dL 09/30/2024 1:43 PM HIGH SCHOOL MUSIC INSTRUCTOR [facility] Blood BLOOD SPECIMEN / Unknown Venipuncture / Unknown 09/29/2024 2:41 PM HIGH SCHOOL MUSIC INSTRUCTOR 09/29/2024 3:43 PM HIGH SCHOOL MUSIC INSTRUCTOR [facility] Jae Cerora CHEMISTRY Eli l Result Performing Organization Address City/[facility] Co de Phone Number [facility] [address] [place] [address], [place] * FOLIC ACID (09/29/2024 2:41 PM HIGH SCHOOL MUSIC INSTRUCTOR) Only the most recent of2 resultswithin the time period is included. Pathologist [facility] FOLIC ACID 7.3 4.6 - 34.8 ng/mL 09/30/2024 1:57 PM HIGH SCHOOL MUSIC INSTRUCTOR [facility] Blood BLOOD SPECIMEN / Unknown Venipuncture / Unknown 09/29/2024 2:41 PM HIGH SCHOOL MUSIC INSTRUCTOR 09/29/2024 2:47 PM HIGH SCHOOL MUSIC INSTRUCTOR Narrative [facility] - 09/30/2024 1:57 PM HIGH SCHOOL MUSIC INSTRUCTOR Biotin supplements may cause clinically significant interference for this test assay. If interference is suspected, it is strongly recommended that biotin is discontinued for at least one week prior to retesting. Kermit Rowe [employer]ub DO CHEMISTRY Eli l Result Performing Organization Address City/[facility]/ZIP Co de Phone Number [facility] [address] [place] [address], [place] * ZINC SERUM (09/29/2024 2:40 PM HIGH SCHOOL MUSIC INSTRUCTOR) ZINC BLOOD 59 44 - 115 ug/dl 10/04/2024 12:41 PM HIGH SCHOOL MUSIC INSTRUCTOR [facility] Comment: Analysis performed by Inductively-Coupled Plasma/Mass Spectrometry (ICP/MS). This test was developed and its performance characteristics determined by [employer]. It has not been cleared or approved by the Food and Drug Administration. Blood BLOOD SPECIMEN / Unknown Venipuncture / Unknown 09/29/2024 2:40 PM HIGH SCHOOL MUSIC INSTRUCTOR 09/29/2024 2:47 PM HIGH SCHOOL MUSIC INSTRUCTOR Kermit Guo DO SEND OUTS Eli l Result Performing Organization Address City/[facility]/ZIP Co de Phone Number [facility] [address] [place] [address], [place] * RBC W TYPE AND SCREEN (09/29/2024 1:16 PM HIGH SCHOOL MUSIC INSTRUCTOR) [facility]ORH B Rh Positive 09/29/2024 1:52 PM HIGH SCHOOL MUSIC INSTRUCTOR [facility] BLOOD BANK ANTIBODY SCREEN Negative Negative 09/29/2024 1:52 PM HIGH SCHOOL MUSIC INSTRUCTOR [facility] BLOOD BANK SPECIMEN EXPIRATION DATE/TIME 10/02/24 23:59 09/29/2024 1:52 PM HIGH SCHOOL MUSIC INSTRUCTOR [facility] BLOOD BANK Blood BLOOD SPECIMEN / Unknown Venipuncture / Unknown 09/29/2024 1:16 PM HIGH SCHOOL MUSIC INSTRUCTOR 09/29/2024 1:22 PM HIGH SCHOOL MUSIC INSTRUCTOR Michael Cisneros DO BLOOD BANK Final Resul t Performing Organization Address City/[facility]/ZIP Co de Phone Number [facility] BLOOD BANK [address] [place] [address] * CWS PATH REVIEW HEMATOLOGY (09/29/2024 12:22 PM HIGH SCHOOL MUSIC INSTRUCTOR) PATH COMMENT Comment 10/01/2024 12:00 PM HIGH SCHOOL MUSIC INSTRUCTOR [facility] TRAL LABORATORY Comment: Refer to peripheral blood morphology [id number]. Reviewed by on 10/01/2024 Blood BLOOD SPECIMEN / Unknown Venipuncture / Unknown 09/29/2024 12:22 PM HIGH SCHOOL MUSIC INSTRUCTOR 09/29/2024 12:25 PM HIGH SCHOOL MUSIC INSTRUCTOR Michael Cisneros DO LABORATORY Final Resul t [facility] [address] [address], [place] * (ABNORMAL) IRON PLUS IRON BINDING CAP (09/29/2024 12:22 PM HIGH SCHOOL MUSIC INSTRUCTOR) Only the most recent of2 resultswithin the time period is included. Pathologist [facility] IRON 28(L) 37 - 145 ug/dL 09/30/2024 1:15 PM [facility] TRA LABORATORY UIBC (UNSATURATED) 432(H) 112 - 347 ug/dL 09/30/2024 1:15 PM HIGH SCHOOL MUSIC INSTRUCTOR [facility] IRON BINDING CAPACITY 460(H) 250 - 400 ug/dL 09/30/2024 1:15 PM HIGH SCHOOL MUSIC INSTRUCTOR [facility] IRON,% SATURATION 6(L) 14 - 50 % 09/30/2024 1:[address] [facility] Blood BLOOD SPECIMEN / Unknown Venipuncture / Unknown 09/29/2024 12:22 PM HIGH SCHOOL MUSIC INSTRUCTOR 09/29/2024 12:25 PM HIGH SCHOOL MUSIC INSTRUCTOR [facility]Pat[facility] State Hospitaldacharles DO CHEMISTRY Eli l Result Performing Organization Address [facility] de Phone Number [facility] [address] [address], [place] * (ABNORMAL) CBC W PLT NO DIFF (09/29/2024 12:22 PM HIGH SCHOOL MUSIC INSTRUCTOR) Only the most recent of4 resultswithin the time period is included. WHITE BLOOD COUNT 8.6 4.5 - 11.0 thou/cu mm 09/29/2024 1:03 PM [facility] RED BLOOD COUNT 2.75(L) 4.00 - 5.20 mil/cu mm 09/29/2024 1:03 PM [facility] HEMOGLOBIN 6.9(LL) 12.0 - 16.0 g/dL 09/29/2024 1:03 PM [facility] HEMATOCRIT 24.1(L) 33.0 - 51.0 % 09/29/2024 1:03 PM [facility] MCV 88 80 - 100 fL 09/29/2024 1:03 PM [facility] MCH 25.1(L) 26.0 - 34.0 pg 09/29/2024 1:03 PM [facility] MCHC 28.6(L) 32.0 - 36.0 g/dL 09/29/2024 1:03 PM [facility] RDW 25.5(H) 11.5 - 15.5 % 09/29/2024 1:03 PM [facility] PLATELET COUNT 421 140 - 440 thou/cu mm 09/29/2024 1:03 PM [facility] MPV 9.1 6.5 - 11.0 fL 09/29/2024 1:03 PM [facility] Blood BLOOD SPECIMEN / Unknown Venipuncture / Unknown 09/29/2024 12:22 PM HIGH SCHOOL MUSIC INSTRUCTOR 09/29/2024 12:25 PM HIGH SCHOOL MUSIC INSTRUCTOR us Michael Cisneros DO HEMATOLOGY Final Resul t [facility] [address] [place] [address] * (ABNORMAL) C-REACTIVE PROTEIN (09/29/2024 12:22 PM HIGH SCHOOL MUSIC INSTRUCTOR) C-REACTIVE PROTEIN 1.9(H) <0.5 mg/dL 09/29/2024 2:42 PM HIGH SCHOOL MUSIC INSTRUCTOR [facility] Blood BLOOD SPECIMEN / Unknown Venipuncture / Unknown 09/29/2024 12:22 PM HIGH SCHOOL MUSIC INSTRUCTOR 09/29/2024 12:25 PM HIGH SCHOOL MUSIC INSTRUCTOR us Kermit Guo DO CHEMISTRY Eli l Result [facility] [address] [place] [address] * (ABNORMAL) HAPTOGLOBIN (09/29/2024 12:22 PM HIGH SCHOOL MUSIC INSTRUCTOR) Haptoglobin <10(L) 30 - 200 mg/dL 09/30/2024 1:16 PM HIGH SCHOOL MUSIC INSTRUCTOR [facility] Blood BLOOD SPECIMEN / Unknown Venipuncture / Unknown 09/29/2024 12:22 PM HIGH SCHOOL MUSIC INSTRUCTOR 09/29/2024 12:25 PM HIGH SCHOOL MUSIC INSTRUCTOR Kermit Bentonk DO CHEMISTRY Eli l Result Performing Organization Address City/[facility]/ZIP Co de Phone Number [facility] [address] [address], [place] * GAMMA GT (09/29/2024 12:22 PM HIGH SCHOOL MUSIC INSTRUCTOR) GAMMA GT 33 5 - 36 IU/L 09/30/2024 1:16 PM HIGH SCHOOL MUSIC INSTRUCTOR [facility] Blood BLOOD SPECIMEN / Unknown Venipuncture / Unknown 09/29/2024 12:22 PM HIGH SCHOOL MUSIC INSTRUCTOR 09/29/2024 12:25 PM HIGH SCHOOL MUSIC INSTRUCTOR Kermit Bentonk DO CHEMISTRY Eli l Result Performing Organization Address City/[facility]/ZIP Co de Phone Number [facility] [address] [place], [place] [id number], [place] * FERRITIN (09/29/2024 12:22 PM HIGH SCHOOL MUSIC INSTRUCTOR) FERRITIN 45.8 15.0 - 150.0 ng/mL 09/30/2024 1:48 PM HIGH SCHOOL MUSIC INSTRUCTOR [facility] Blood BLOOD SPECIMEN / Unknown Venipuncture / Unknown 09/29/2024 12:22 PM HIGH SCHOOL MUSIC INSTRUCTOR 09/29/2024 12:25 PM HIGH SCHOOL MUSIC INSTRUCTOR Kermit Nevarezdak DO CHEMISTRY Eli l Result Performing Organization Address City/[facility]/ZIP Co de Phone Number [facility] [address] [address], [place] * VITAMIN B12 (09/29/2024 12:22 PM [employer]) Only the most recent of2 resultswithin the time period is included. VITAMIN B12 783 232 - 1,245 pg/mL 09/30/2024 1:58 PM [employer] INSTRUCTOR [facility] Blood BLOOD SPECIMEN / Unknown Venipuncture / Unknown 09/29/2024 12:22 PM [employer] IN[employer]CTOR 09/29/2024 12:25 PM [employer] IN[employer]CTOR Narrative [facility] - 09/30/2024 1:58 PM [employer] IN[employer]CTOR Biotin supplements may cause clinically significant interference for this test assay. If interference is suspected, it is strongly recommended that biotin is discontinued for at least one week prior to retesting. Kermit Guo DO CHEMISTRY Eli l Result [facility] [address] [place] [address], [place] * (ABNORMAL) HEPATIC FUNCTION PANEL (09/29/2024 12:22 PM H[employer]) Only the most recent of2 resultswithin the time period is included. ALBUMIN 3.5(L) 4.0 - 4.9 g/dL 09/29/2024 12:47 PM [facility] PROTEIN,TOTAL 6.7 6.0 - 8.0 g/dL 09/29/2024 12:47 PM [facility] BILIRUBIN,TOTAL 0.3 0.0 - 1.2 mg/dL 09/29/2024 12:47 PM [facility] BILIRUBIN,DIRECT 0.1 0.0 - 0.2 mg/dL 09/29/2024 12:47 PM [facility] ALK PHOSPHATASE 147(H) 35 - 104 IU/L 09/29/2024 12:47 PM [facility] ALT (SGPT) 15 10 - 35 IU/L 09/29/2024 12:47 PM [facility] AST (SGOT) 21 10 - 35 IU/L 09/29/2024 12:47 PM [facility] Blood BLOOD SPECIMEN / Unknown Venipuncture / Unknown 09/29/2024 12:22 PM H[employer] IN[employer]CTOR 09/29/2024 12:25 PM [employer]CTOR Michael Cisneros DO CHEMISTRY Final Resul t [facility] [address] [place] [address] * UA W/ SEDIMENT EXAM REFLEXED PER CRITERIA (09/29/2024 12:20 PM H[employer]IC INSTRUCTOR) Only the most recent of3 resultswithin the time period is included. COLOR Yellow Yellow Color 09/29/2024 12:28 PM [facility] CLARITY Clear Clear Clarity 09/29/2024 12:28 PM [facility] SPECIFIC GRAVITY,URINE 1.010 1.010, 1.015, 1.020, 1.025 09/29/2024 12:28 PM [facility] PH,URINE 6.0 6.0, 7.0, 8.0, 5.5, 6.5, 7.5, 8.5 09/29/2024 12:28 PM [facility] UROBILINOGEN, QUALITATIVE Normal Normal EU/dl 09/29/2024 12:28 PM [facility] PROTEIN, URINE Negative Negative mg/dL 09/29/2024 12:28 PM [facility] GLUCOSE, URINE Negative Negative mg/dL 09/29/2024 12:28 PM [facility] KETONES,URINE Negative Negative mg/dL 09/29/2024 12:28 PM [facility] BILIRUBIN,URI NE Negative Negative 09/29/2024 12:28 PM [facility] OCCULT BLOOD,URINE Negative Negative 09/29/2024 12:28 PM [facility] NITRITE Negative Negative 09/29/2024 12:28 PM [facility] LEUKOCYTE ESTERASE Negative Negative 09/29/2024 12:28 PM [facility] Urine URINE SPECIMEN / Unknown Non-Blood / Unknown 09/29/2024 12:20 PM H[employer]CTOR 09/29/2024 12:25 PM [facility] us Michael Cisneros DO URINE Final Resul t Performing Organization Address [facility] Co de Phone Number [facility] [address] [place] [address] * CRITICAL CARE PROVIDED (09/29/2024 12:02 PM H[employer]IC INSTRUCTOR) Narrative Michael Cisneros DO - 09/29/2024 12:02 PM [employer] IN[employer]CTOR Michael Cisneros DO 09/29/2024 2:47 PM CRITICAL CARE PROVIDED Performed by: Michael Cisneros DO Authorized by: Michael Cisneros DO Critical care provider statement: Critical care time (minutes): 30 Critical care was necessary to treat or prevent imminent or life-threatening deterioration of the following conditions: anemia. Critical care was time spent personally by me on the following activities: Blood draw for specimens, development of treatment plan with patient or surrogate, ordering and review of radiographic studies, discussions with consultants, ordering and review of laboratory studies, ordering and performing treatments and interventions, re-evaluation of patient's condition and evaluation of patient's response to treatment Michael Cisneros DO PROCEDURE ORD Final Resul t * PATH TISSUE EXAM (09/13/2024 8:06 AM H[employer]OL [employer]IC INSTRUCTOR) Only the most recent of2 resultswithin the time period is included. Case Report Pathology Report Case: [id number] Authorizing Provider: Ernie Shetty MD Collected: 09/13/2024 0806 Ordering Location: [facility] Received: 09/13/2024 1522 Pathologist: Reji Boss MD Specimens: A) - Descending Colon Polyp B) - Sigmoid Polyp 09/17/2024 3:26 PM H[employer] INSTRUCTOR [facility] Final Diagnosis A) COLON, DESCENDING, POLYPECTOMY: 1. Tubular adenoma consistent with advanced adenoma due to size (see comment) 2. Negative for high grade dysplasia and malignancy 3. Per the colonoscopy report: a. Polyp size: 10 mm b. Resection: Complete c. Retrieval: Complete B) COLON, SIGMOID, POLYPECTOMY: 1. Sessile serrated adenoma 2. Negative for overt dysplasia 3. Per the colonoscopy report: a. Polyp size: 10 mm b. Resection: Complete c. Retrieval: Complete 09/17/2024 3:26 PM H[employer]OL [employer]IC INSTRUCTOR [facility] Comment A) Advanced adenoma of the colorectum is defined by the [employer] (ACG) as an adenoma that is 1 cm or more in size, contains an appreciable villous component, or has high grade dysplasia (Jonathan Law. [2008] Gastroenterology, PMID - [id number]). Patients with advanced adenomas are at an increased risk for synchronous and metachronous additional advanced adenomas. Appropriate follow-up is suggested. 09/17/2024 3:26 PM H[employer]OL [employer] INSTRUCTOR [facility] [employer] [facility] Clinical Information Ms. Sánchez is a 64 y.o. undergoing screening colonoscopy. Colonoscopy findings: Multiple polyps, completely removed. Diverticulosis in the descending and sigmoid colon. Internal hemorrhoids 09/17/2024 3:26 PM H[employer]OL [employer] INSTRUCTOR [facility] Gross Description A) Received in formalin is a 11 x 4 x 4 mm pink-handy rubbery polyp. Apparent base is inked and polyp is sectioned. Tissue is entirely submitted in 1 cassette. It is labeled with the patient's name and designated descending colon polyp. B) Received in formalin is a 9 x 4 x 3 mm pink-handy rubbery polyp. Apparent base is inked yellow and polyp is sectioned. Tissue is entirely submitted in 1 cassette. It is labeled with the patient's name and designated sigmoid polyp. Jamari Gamboa 09/16/2024 10:22 AM 09/17/2024 3:26 PM H[employer]OL [employer]IC INSTRUCTOR [facility] Microscopic Description The final diagnosis is based on microscopic examination of appropriate sections of all specimens. 09/17/2024 3:26 PM H[employer]OL MUSIC INSTRUCTOR [facility] Additional Information Interpreted at [facility] - [address] [place], [place] [address]e [facility] [address] [address] 09/17/2024 3:26 PM H[employer]CHOOL [employer]IC INSTRUCTOR [facility] Polyp (Descending Colon Polyp) 09/13/2024 8:06 AM H[employer] SCHOOL MUSIC INSTRUCTOR 09/13/2024 3:22 PM H[employer] INSTRUCTOR Specimen from mass lesion (specimen) (Sigmoid Polyp) 09/13/2024 8:10 AM H[employer]OL [employer]IC INSTRUCTOR 09/13/2024 3:22 PM H[employer] INSTRUCTOR Ernie Shetty MD PATHOLOGY/CYTOLOGY Final Result [facility] [address] [address], [place] * COLONOSCOPY (09/13/2024 7:15 AM H[employer]OL MUSIC INSTRUCTOR) 09/13/2024 7:1 5 AM H[employer]OL [employer]IC INSTRUCTOR Narrative Transcriptions Ernie Shetty MD - 09/13/2024 8:19 AM [facility] Patient Name: Juliane Sánchez Procedure Date: 09/13/2024 Gender: Female Date of : 1960 Admit Type: Outpatient Procedure: Colonoscopy Proceduralist: Ernie Shetty MD Referring MD: Ernie Shetty MD Indications/Pre-Op Diagnosis: Screening for colorectal malignantneoplasm Medications: Monitored Anesthesia Care Procedure Description: The patient had risks, benefits and alternatives explained to andgave informed consent. The patient had a stable cardiopulmonary status and judged an adequate candidate for conscious sedation. The endoscope [id number] was passed through the anus and advanced to the cecum, identified by appendiceal orifice andileocecal valve. The colonoscopy was technically difficult and complex due to multiple diverticula in the colon, poor bowel prep and a redundant colon. The patient tolerated the procedure well. The quality of the bowel preparation was fair/poor. Complications: No immediate complications. Estimated Blood Loss & Specimen: Estimated blood loss: none. Specimen collected: Yes and sent to Laboratory Findings: The sigmoid colon and descending colon were moderately redundant. A 10 mm polyp was found in the descending colon. The polyp was semi-sessile. The polyp was removed with a cold snare. Resection and retrieval were complete. A 10 mm polyp was found in the sigmoid colon. The polyp was semi-sessile. The polyp was removed with a cold snare. Resection and retrieval were complete. Multiple diverticula were found in the sigmoid colon and descending colon. Internal hemorrhoids were found during retroflexion. The hemorrhoids were Grade II (internal hemorrhoids that prolapse but reduce spontaneously). Impressions/Post-Op Diagnosis: - Preparation of the colon was fair. - Redundant colon. - One 10 mm polyp in the descending colon, removed with a cold snare. Resected and retrieved. - One 10 mm polyp in the sigmoid colon, removed with a cold snare. Resected and retrieved. - Diverticulosis in the sigmoid colon and in the descending colon. - Internal hemorrhoids. Recommendation: - Await pathology results. No aspirin or NSAIDS for five days. - The prep was fair/poor but no obvious colonic neoplasm wasappreciated. - OK to discharge to home today - If small bowel biopsies are negative, primary should treat iron deficiency anemia and look for other non-GI related causes. If noneare found, and hemoglobin continues to drift lower a small bowel capsule study should be pursued. Ernie Shetty MD 09/13/2024 8:19:36 AM This report has been signed electronically. Note Initiated On: 09/13/2024 7:15 AM Scope Withdrawal Time 0 hours 12 minutes 9 seconds Total Procedure Duration Time 0 hours 24 minutes 11 seconds us Ernie Shetty MD PROCEDURE ORD Final Res ult * ENDOSCOPY (09/12/2024 11:45 AM H[employer]CHOOL MUSIC INSTRUCTOR) 09/12/2024 11:4 5 AM H[employer]OL [employer]IC INSTRUCTOR Narrative Transcriptions Ernie Shetty MD - 09/12/2024 12:38 PM [facility] Patient Name: Juliane Sánchez Procedure Date: 09/12/2024 Gender: Female Date of : 1960 Admit Type: Outpatient Procedure: Upper GI endoscopy Proceduralist: Ernie Shetty MD Referring MD: Ernie Shetty MD Indications/Pre-Op Diagnosis: Unexplained iron deficiency anemia Medications: Monitored Anesthesia Care Procedure Description: Risk of bleeding, infection, perforation, need for surgery and alternatives discussed. The endoscope [id number] was introduced through the mouth, and advanced to the third part of duodenum. The upper GI endoscopy was accomplished without difficulty. The patient tolerated the procedure well. Complications: No immediate complications. Estimated Blood Loss & Specimen: Estimated blood loss: none. Specimen collected: Yes and sent to Laboratory Findings: The Z-line was regular and was found 36 cm from the incisors. The esophagus was normal. The stomach was normal. The examined duodenum was normal. Biopsies for histology were takenwith a cold forceps for evaluation of celiac disease. Impressions/Post-Op Diagnosis: - Z-line regular, 36 cm from the incisors. - Normal esophagus. - Normal stomach. - Normal examined duodenum. Biopsied. Recommendation: - Await pathology results. - We will proceed with colonoscopy tomorrow AM Ernie Shetty MD 09/12/2024 12:38:09 PM This report has been signed electronically. Note Initiated On: 09/12/2024 11:45 AM us Ernie Shetty MD PROCEDURE ORD Final Res ult * TRANSFUSE RBC (NURSE COMMUNICATION ORDER) (09/11/2024 3:30 AM H[employer]OL MUSIC INSTRUCTOR) Blood BLOOD SPECIMEN / Unknown [facility] Final Result * TRANSFUSE RBC (NURSE COMMUNICATION ORDER) (09/10/2024 10:22 PM HIGH S[employer]OL MUSIC INSTRUCTOR) Blood BLOOD SPECIMEN / Unknown [facility] Final Result * CT CHEST ABDOMEN PELVIS WO (09/10/2024 7:40 PM H[employer]CHOOL MUSIC INSTRUCTOR) Anatomical Region Laterality Modality Abdomen, Pelvis, AORTA, LIVER, SPLEEN, CHEST Computed Tomography 09/10/2024 7:53 PM HIGH SCHOOL MUSIC INSTRUCTOR Impressions 09/10/2024 7:53 PM HIGH SCHOOL MUSIC INSTRUCTOR 1. Right axillary adenopathy seen with lymph nodes measuring up to 1 cm. Dictated by Karlos Malik MD @ 09/10/2024 7:46:34 PM Please note that all CT scans at this facility use dose modulation, iterative reconstruction, and/or weight-based dosing when appropriate to reduce radiation dose to as low as reasonably achievable. Dictated by: Karlos Malik MD @ 09/10/2024 19:53:09 (Electronically Signed) Narrative 09/10/2024 7:53 PM HIGH SCHOOL MUSIC INSTRUCTOR For Patients: As a result of the Cures Act, medical imaging exams and procedure reports are released immediately into your electronic medical record. You may view this report before your referring provider. If you have questions, please contact your health care provider. INDICATION: Abdominal pain, nonlocalized upper abdominal pain, worsening anemia TECHNIQUE: CT chest, abdomen, and pelvis without i.v. contrast. Coronal and sagittal reformats were obtained. COMPARISON: None FINDINGS: CHEST: Cardiovascular: The heart has an unremarkable appearance and size. The pulmonary arteries are unremarkable in appearance. No sign of aneurysm seen in the thoracic aorta. The presence of aortic dissection cannot be evaluated without the use of intravenous contrast. Mild atherosclerotic calcifications are noted in the coronary arteries. Mediastinum: No mass or adenopathy seen. A small substernal goiter is noted. Lung: Both lungs are unremarkable in appearance. Pleura and pericardium: No sign of pleural effusion seen. No significant pericardial effusion is present. Chest wall and axilla: Right axillary adenopathy seen with lymph nodes measuring up to 1 cm. Left axillary lymph nodes are present measuring up to 8 mm. ABDOMEN/PELVIS: Liver: Unremarkable. Spleen: Unremarkable. Pancreas: Unremarkable. Gallbladder: Previous cholecystectomy noted with no significant intra- or extrahepatic biliary ductal dilatation seen. Kidney: Moderate atrophy of the right kidney is present. Adrenal: Unremarkable. Bowel: Moderate diverticulosis of the sigmoid colon is present with no evidence of diverticulitis. The stomach and duodenal collapsed and difficult to evaluate. The appendix is not identified. Vascular: Moderate atherosclerotic calcifications of the abdominal aorta and its tributaries are present. Lymph: Unremarkable. Peritoneum: Unremarkable. No pneumoperitoneum is seen. No significant ascites is noted. Pelvis: Unremarkable. Soft tissue: Unremarkable. Bone: Unremarkable for age. Procedure Note Karlos Malik MD - 09/10/2024 For Patients: As a result of the Cures Act, medical imagingexams and procedure reports are released immediately into your electronicmedical record. You may view this report before your referring provider.If you have questions, please contact your health care provider. INDICATION: Abdominal pain, nonlocalized upper abdominal pain, worseninganemia TECHNIQUE: CT chest, abdomen, and pelvis without i.v. contrast. Coronaland sagittal reformats were obtained. COMPARISON: None FINDINGS: CHEST: Cardiovascular: The heart has an unremarkable appearance and size. Thepulmonary arteries are unremarkable in appearance. No sign of aneurysmseen in the thoracic aorta. The presence of aortic dissection cannot beevaluated without the use of intravenous contrast. Mild atheroscleroticcalcifications are noted in the coronary arteries. Mediastinum: No mass or adenopathy seen. A small substernal goiter isnoted. Lung: Both lungs are unremarkable in appearance. Pleura and pericardium: No sign of pleural effusion seen. No significantpericardial effusion is present. Chest wall and axilla: Right axillary adenopathy seen with lymph nodesmeasuring up to 1 cm. Left axillary lymph nodes are present measuring upto 8 mm. ABDOMEN/PELVIS: Liver: Unremarkable. Spleen: Unremarkable. Pancreas: Unremarkable. Gallbladder: Previous cholecystectomy noted with no significant intra- orextrahepatic biliary ductal dilatation seen. Kidney: Moderate atrophy of the right kidney is present. Adrenal: Unremarkable. Bowel: Moderate diverticulosis of the sigmoid colon is present with noevidence of diverticulitis. The stomach and duodenal collapsed anddifficult to evaluate. The appendix is not identified. Vascular: Moderate atherosclerotic calcifications of the abdominal aortaand its tributaries are present. Lymph: Unremarkable. Peritoneum: Unremarkable. No pneumoperitoneum is seen. No significantascites is noted. Pelvis: Unremarkable. Soft tissue: Unremarkable. Bone: Unremarkable for age. IMPRESSION: 1. Right axillary adenopathy seen with lymph nodes measuring up to 1 cm. Dictated by Karlos Malik MD @ 09/10/2024 7:46:34 PM Please note that all CT scans at this facility use dose modulation,iterative reconstruction, and/or weight-based dosing when appropriate toreduce radiation dose to as low as reasonably achievable. Dictated by: Karlos Malik MD @ 09/10/2024 19:53:09 (Electronically Signed) Mehul SNYDER CT Final Re sult * (ABNORMAL) TROPONIN T (HS) ONE TIME (09/10/2024 7:07 PM HIGH SCHOOL MUSIC INSTRUCTOR) Only the most recent of4 resultswithin the time period is included. [facility] TROPONIN T HS 18(H) 6-10 ng/L ng/L 09/10/2024 7:34 PM HIGH SCHOOL MUSIC INSTRUCTOR [facility] Blood BLOOD SPECIMEN / Unknown Venipuncture / Unknown 09/10/2024 7:07 PM HIGH SCHOOL MUSIC INSTRUCTOR 09/10/2024 7:12 PM HIGH SCHOOL MUSIC INSTRUCTOR Mehul SNYDER CHEMISTRY Final Re sult [facility] [address] [place] [address] * TYPE AND SCREEN ONLY (09/10/2024 7:07 PM HIGH SCHOOL MUSIC INSTRUCTOR) [facility] ABORH B Rh Positive 09/10/2024 7:55 PM HIGH SCHOOL MUSIC INSTRUCTOR [facility] BLOOD BANK ANTIBODY SCREEN Negative Negative 09/10/2024 7:55 PM HIGH SCHOOL MUSIC INSTRUCTOR [facility] BLOOD BANK SPECIMEN EXPIRATION DATE/TIME 09/13/24 23:59 09/10/2024 7:55 PM HIGH SCHOOL MUSIC INSTRUCTOR [facility] BLOOD BANK Blood BLOOD SPECIMEN / Unknown Venipuncture / Unknown 09/10/2024 7:07 PM HIGH SCHOOL MUSIC INSTRUCTOR 09/10/2024 7:12 PM HIGH SCHOOL MUSIC INSTRUCTOR Mehul SNYDER BLOOD BANK Final Re sult Performing Organization Address [facility] Co de Phone Number [facility] BLOOD BANK [address] [place] [address] * EKG 12 LEAD (09/10/2024 5:25 PM HIGH SCHOOL MUSIC INSTRUCTOR) Only the most recent of3 resultswithin the time period is included. Pathologist [facility] Interpretation Normal sinus rhythm Left axis deviation Low voltage QRS Abnormal ECG When compared with ECG of 28-Aug-2024 16:43, Minimal criteria for Anterior infarct are no longer Present ST no longer elevated in Inferior leads ST no longer depressed in Lateral leads T wave inversion no longer evident in Lateral leads no ischemic changes BEYOND NOW Ventricular Rate 88 BPM BEYOND NOW Atrial Rate 88 BPM BEYOND NOW P-R Interval 138 ms BEYOND NOW QRS Duration 84 ms BEYOND NOW QT 386 ms BEYOND NOW QTc 467 ms BEYOND NOW P [place] 44 degrees BEYOND NOW R [place] -42 degrees BEYOND NOW T [place] 43 degrees BEYOND NOW 09/10/2024 5:25 PM HIGH SCHOOL MUSIC INSTRUCTOR 09/10/2024 7:11 PM HIGH SCHOOL MUSIC INSTRUCTOR Mehul SNYDER EKG ORD Final Re sult Performing Organization Address [facility] Co de Phone Number BEYOND NOW [place], [place] * (ABNORMAL) TROPONIN T (HS) ACUTE W/2HR REFLEX (09/10/2024 5:16 PM HIGH SCHOOL MUSIC INSTRUCTOR) Only the most recent of3 resultswithin the time period is included. Pathologist [facility] TROPONIN T HS 20(H) 6-10 ng/L ng/L 09/10/2024 5:47 PM HIGH SCHOOL MUSIC INSTRUCTOR [facility] Blood BLOOD SPECIMEN / Unknown Butterfly / Unknown 09/10/2024 5:16 PM HIGH SCHOOL MUSIC INSTRUCTOR 09/10/2024 5:19 PM HIGH SCHOOL MUSIC INSTRUCTOR Narrative [facility] - 09/10/2024 5:47 PM HIGH SCHOOL MUSIC INSTRUCTOR hs-cTnT (Elecsys Troponin T Gen 5) concentration (s) above the sex-specific 99th percentile (16 ng/L or greater for males or 11 ng/L or greater for females) are indicative of myocardial injury. If initial hs-cTnT <=100 ng/L at presentation, a 0h/2h ABSOLUTE (ng/L) delta change (rising or falling) of >=10 ng/L suggests a significant change, whereas a 0h/2h delta change <=3 ng/L suggests no significant change. If initial hs-cTnT >100 ng/L at presentation, a 0h/2h/ RELATIVE (percent, %) delta change of 20% is suggested to distinguish patients with acute vs. chronic myocardial injury. There are multiple etiologies that can cause hs-cTnT increases above the 99th percentile (myocardial injury) other than acute myocardial infarction. Clinical context and careful clinical evaluation are critical for diagnosis and risk-stratification. The diagnosis of acute myocardial infarction requires a rising and/or falling pattern in hs-cTnT concentrations with at least one value above the sex-specific 99th percentile PLUS at least one of the following clinical criteria: ischemic symptoms, new or presumed new significant ST-T wave changes or new LBBB, development of pathological Q waves, imaging evidence of new loss of viable myocardium or new regional wall motion abnormality, or identification of intracoronary atherothrombosis or an acute angiographic culprit on coronary angiography. In appropriate low-risk patients with a non-ischemic electrocardiogram without active chest pain with a symptom onset >3-hours without recurrence, a single initial hs-cTnT<6 ng/L identifies patient with a very low risk in emergency department patient population. us Mehulwin SNYDER CHEMISTRY Final Re sult [facility] [address] [place] [address] * (ABNORMAL) COMP METABOLIC PANEL (09/10/2024 5:16 PM HIGH SCHOOL MUSIC INSTRUCTOR) SODIUM 136 136 - 145 mmol/L 09/10/2024 5:57 PM HIGH SCHOOL MUSIC INSTRUCTOR [facility] POTASSIUM 4.1 3.5 - 5.1 mmol/L 09/10/2024 5:57 PM [facility] CHLORIDE 100 98 - 107 mmol/L 09/10/2024 5:57 PM [facility] CO2,TOTAL 26 22 - 29 mmol/L 09/10/2024 5:57 PM [facility] ANION GAP 10 5 - 18 09/10/2024 5:57 PM [facility] GLUCOSE 154(H) 70 - 99 mg/dL 09/10/2024 5:57 PM [facility] CALCIUM 10.0 8.8 - 10.4 mg/dL 09/10/2024 5:57 PM [facility] Comment: Reference ranges for this test were updated on 07/09/2024 to reflect our healthy population more accurately. Reference range changes are not retroactively applied to results, but previous results using the same methodology can be interpreted in the context of the new reference range. BUN 41(H) 8 - 23 mg/dL 09/10/2024 5:57 PM [facility] CREATININE 1.29(H) 0.50 - 0.90 mg/dL 09/10/2024 5:57 PM [facility] BUN/CREAT RATIO 32(H) 10 - 20 5:57 PM [facility] eGFR 46(L) >90 mL/min/1. 73m2 09/10/2024 5:57 PM [facility] Comment:As of 2021, eG FR is calculated by the CKD-EPI creatinine equation without race adjustment. eGFR can be influenced by muscle mass, exercise, and diet. The reported eGFR is an estimation only and is only applicable if the renal function is stable. ALBUMIN 3.7(L) 4.0 - 4.9 g/dL 09/10/2024 5:57 PM [facility] PROTEIN,TOTAL 6.6 6.0 - 8.0 g/dL 09/10/2024 5:57 PM [facility] BILIRUBIN,TOTAL <0.2 0.0 - 1.2 mg/dL 09/10/2024 5:57 PM [facility] ALK PHOSPHATASE 116(H) 35 - 104 IU/L 09/10/2024 5:57 PM [employer] [facility] ALT (SGPT) 6(L) 10 - 35 IU/L 09/10/2024 5:57 PM [employer] [facility] AST (SGOT) 11 10 - 35 IU/L 09/10/2024 5:57 PM [employer] [facility] Blood BLOOD SPECIMEN / Unknown Butterfly / Unknown 09/10/2024 5:16 PM [employer] 09/10/2024 5:19 PM [employer] us Mehul Wolf SNYDER CHEMISTRY Final Re sult [facility] [address] [place], [place] [phone] * Continuos video EEG (veeg) monitoring (08/30/2024 9:39 AM [employer]) Narrative Catina Lyon MD - 08/30/2024 9:39 AM [employer] Catina Lyon MD 08/30/2024 1:48 PM [facility] [address] [place] [address] SPECIAL NEURODIAGNOSTIC PROCEDURE - ELECTROENCEPHALOGRAM - EEG Video EEG Report Patient Name: Juliane Sánchez : 1960 Study Date: 08/30/24 Study Number: [id number] Duration: 00:00-10:48 (10 hours 48 minutes) Admit Date: 08/28/24 Clinical Note: This patient is a 64-year-old woman who has a 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 EEG monitoring is to assess for seizures. Conditions of Recording: This is a digital EEG with continuous video recording. It utilizes the 21-lead modified international 10/20 system for scalp recordings. It also uses video recording to clinically correlate epileptiform abnormalities and improve localization for target clinical events. Physician access to data was available throughout the recording period. A daily report, as below, was generated and updated at least once every 24 hour period. Activation Procedures: none. Neuroactive medications: Levetiracetam Results: Background: Background activity during wakefulness reveals a 25-30 uV-amplitude, 9 Hz posterior dominant rhythm. Posteriorly, it appears symmetrical, synchronous, and reactive to eye opening. There is continuous mild theta slowing in the left frontal-temporal region. Sleep: Stage I and stage II of sleep were identified. Stage II sleep is notable for sleep spindles, vertex sharp transients, and K complexes. Slow wave sleep is also recorded. EKG: An estimated average heart rate of 75 bpm is noted. Interictal Findings: None. Ictal Events: None. Impression: Abnormal study, due to Mild left frontal-temporal slowing Interpretation: This EEG demonstrates focal abnormalities of the left frontal-temporal region. Focal abnormalities imply localized cortical dysfunction and may be related to structural, vascular, or other epileptogenic pathologies. Clinical correlation is required. Catina Lyon MD [facility] This continuous video EEG study was completed from 08/29/24 to 08/30/24, with a total recording duration of 32 hours and 10 minutes. Salome SELLERSBS NEUROLOGY ORD Eli l Result * VANCOMYCIN (08/30/2024 7:03 AM [employer]) VANCOMYCIN 9.8 ug/mL 08/30/2024 7:48 AM [employer] [facility] Comment:No Reference Range D efined. DATE OF LAST DOSE,RANDOM Not Given 08/30/2024 7:48 AM [employer]CTOR [facility] TIME OF LAST DOSE,RANDOM Not Given 08/30/2024 7:48 AM H[employer] [facility] Blood BLOOD SPECIMEN / Unknown Butterfly / Unknown 08/30/2024 7:03 AM [employer]CTOR 08/30/2024 7:22 AM [employer] Debbie Holguin MD CHEMISTRY Final Resul t [facility] [address] [place] [address], * (ABNORMAL) BLOOD GAS,VENOUS (08/28/2024 11:11 PM [employer]) Only the most recent of2 resultswithin the time period is included. PH, VENOUS 7.34 7.32 - 7.43 08/28/2024 11:22 PM [employer] [facility] PCO2, VENOUS 43 41 - 51 mmHg 08/28/2024 11:22 PM [employer] [facility] PO2, VENOUS 44(H) 35 - 40 mmHg 08/28/2024 11:22 PM [employer] [facility] HCO3,VENOUS 23 22 - 29 mmol/L 08/28/2024 11:22 PM [employer] [facility] BASE EXCESS, VENOUS, POCT -2.6(L) -2.0 - 3.0 08/28/2024 11:[address] [facility] O2 SATURATION, VENOUS 72 70 - 75 % 08/28/2024 11:22 PM [facility] PATIENT TEMPERATURE 37.0 Degrees C 08/28/2024 11:[address] [facility] Blood BLOOD SPECIMEN / Unknown Butterfly / Unknown 08/28/2024 11:11 PM [employer] 08/28/2024 11:18 PM [employer]CTOR Salome COBB CHEMISTRY Eli l Result [facility] [address] [place] [address], * (ABNORMAL) Electrolyte panel TODAY (08/28/2024 11:11 PM [employer]) SODIUM 137 136 - 145 mmol/L 08/28/2024 11:50 PM [facility] POTASSIUM 4.4 3.5 - 5.1 mmol/L 08/28/2024 11:50 PM [employer] [facility] CHLORIDE 105 98 - 107 mmol/L 08/28/2024 11:50 PM [employer] [facility] CO2,TOTAL 21(L) 22 - 29 mmol/L 08/28/2024 11:50 PM [facility] ANION GAP 11 5 - 18 08/28/2024 11:50 PM [employer]CTOR [facility] Blood BLOOD SPECIMEN / Unknown Butterfly / Unknown 08/28/2024 11:11 PM [employer] IN[employer]CTOR 08/28/2024 11:18 PM [employer] us Salome SELLERSBS CHEMISTRY Eli l Result [facility] [address] [place] [id number], * URINALYSIS MICROSCOPIC (08/28/2024 8:38 PM [employer]) RBC 0-2 0-2, None Seen /HPF 08/28/2024 8:48 PM [employer]CTOR [facility] WBC 0-2 0-2, 3-5, None Seen /HPF 08/28/2024 8:48 PM [employer]CTOR [facility] BACTERIA Few None Seen, Rare, Few Bacteria/H PF 08/28/2024 8:48 PM H[employer]CTOR [facility] EPITHELIAL CELLS Few None Seen, Few Epi/HPF 08/28/2024 8:48 PM H[employer]CTOR [facility] Mucus Present 08/28/2024 8:48 PM [employer]CTOR [facility] Urine URINE SPECIMEN / Unknown Non-Blood / Unknown 08/28/2024 8:38 PM H[employer] IN[employer]CTOR 08/28/2024 8:41 PM [employer] us Brianna Wilson MD URINE Final Re sult [facility] [address] [place] [address] * XR CHEST 1 VIEW PORTABLE (08/28/2024 5:19 PM [employer]) Anatomical Region Laterality Modality HEART, THORAX, CHEST Digital Rad iography 08/28/2024 5:40 PM [employer]CTOR Impressions 08/28/2024 5:40 PM [employer] 1. No acute lung infiltrate or pulmonary edema. Dictated by Russell Thomas MD @ Aug 28 2024 5:40PM (Electronically Signed) [email or web address] Narrative 08/28/2024 5:40 PM [employer] For Patients: As a result of the Cures Act, medical imaging exams and procedure reports are released immediately into your electronic medical record. You may view this report before your referring provider. If you have questions, please contact your health care provider. HISTORY: Evaluate lung infiltrate. TECHNIQUE: One view of the chest. COMPARISON: 08/21/2019. FINDINGS: The patient is rotated to the left. There is no acute lung infiltrate pulmonary edema. No pneumothorax or pleural effusion. No definite pulmonary vascular congestion. Cardiac size is difficult to evaluate the patient`s rotation. Degenerative changes of the spine Procedure Note Russell Thomas MD - 08/28/2024 For Patients: As a result of the Cures Act, medical imagingexams and procedure reports are released immediately into your electronicmedical record. You may view this report before your referring provider.If you have questions, please contact your health care provider. HISTORY: Evaluate lung infiltrate. TECHNIQUE: One view of the chest. COMPARISON: 08/21/2019. FINDINGS: The patient is rotated to the left. There is no acute lung infiltratepulmonary edema. No pneumothorax or pleural effusion. No definitepulmonary vascular congestion. Cardiac size is difficult to evaluate thepatient`s rotation. Degenerative changes of the spine IMPRESSION: 1. No acute lung infiltrate or pulmonary edema. Dictated by Russell Thomas MD @ Aug 28 2024 5:40PM (Electronically Signed) [email or web address] us Brianna Wilson MD GENERAL IMAGING Final Re sult * CT HEAD BRAIN WO (08/28/2024 5:09 PM [employer]) Anatomical Region Laterality Modality HEAD, BRAIN Computed Tomogra phy 08/28/2024 5:29 PM H[employer]OL MUSIC INSTRUCTOR Impressions 08/28/2024 5:29 PM [employer] IN[employer]CTOR 1. No CT evidence of acute infarction. 2. Chronic cortical infarctions within the left frontal/parietal regions. Also present on prior exams. Please note that all CT scans at this facility use dose modulation, iterative reconstruction, and/or weight-based dosing when appropriate to reduce radiation dose to as low as reasonably achievable. Dictated by Emigdio Faustin MD @ 08/28/2024 5:29:12 PM (Electronically Signed) Narrative 08/28/2024 5:29 PM H[employer] IN[employer]CTOR For Patients: As a result of the Cures Act, medical imaging exams and procedure reports are released immediately into your electronic medical record. You may view this report before your referring provider. If you have questions, please contact your health care provider. INDICATION: Altered mental status. TECHNIQUE: CT of the head without contrast. Coronal and sagittal reformats are included. COMPARISON: Head CT from 08/21/2024. brain MRI from 08/22/2024. FINDINGS: No CT evidence of acute cortical infarct. Chronic infarctions within the left middle frontal gyrus and contiguous parietal gyrus. No hyperdense vessels to suggest intracranial thrombus. No acute intracranial hemorrhage. No mass effect or midline shift. No hydrocephalus or extra-axial collections. White matter is within normal limits for age. No acute osseous abnormalities. Right TMJ arthrosis. Left maxillary sinus retention cyst. Normal soft tissues. Procedure Note Emigdio Faustin MD - 08/28/2024 For Patients: As a result of the Cures Act, medical imagingexams and procedure reports are released immediately into your electronicmedical record. You may view this report before your referring provider.If you have questions, please contact your health care provider. INDICATION: Altered mental status. TECHNIQUE: CT of the head without contrast. Coronal and sagittal reformats areincluded. COMPARISON: Head CT from 08/21/2024. brain MRI from 08/22/2024. FINDINGS: No CT evidence of acute cortical infarct. Chronic infarctions within theleft middle frontal gyrus and contiguous parietal gyrus. No hyperdensevessels to suggest intracranial thrombus. No acute intracranialhemorrhage. No mass effect or midline shift. No hydrocephalus orextra-axial collections. White matter is within normal limits for age. No acute osseous abnormalities. Right TMJ arthrosis. Left maxillary sinusretention cyst. Normal soft tissues. IMPRESSION: 1. No CT evidence of acute infarction. 2. Chronic cortical infarctions within the left frontal/parietal regions.Also present on prior exams. Please note that all CT scans at this facility use dose modulation,iterative reconstruction, and/or weight-based dosing when appropriate toreduce radiation dose to as low as reasonably achievable. Dictated by Emigdio Faustin MD @ 08/28/2024 5:29:12 PM (Electronically Signed) us Brianna Wilson MD CT Final Re sult * (ABNORMAL) BLOOD CULTURE X2 (08/28/2024 4:49 PM H[employer]CTOR) Only the most recent of2 resultswithin the time period is included. CULTURE RESULT(AA) 09/03/2024 9:21 AM HIGH SCHOOL MUSIC INSTRUCTOR [facility] CULTURE Anaerobic Bottle growing Staphylococcus coagulase negative 09/03/2024 9:21 AM HIGH SCHOOL MUSIC INSTRUCTOR [facility] Comment:Further identified a s - Staphylococcus epidermidis Blood BLOOD SPECIMEN / Unknown Butterfly / Unknown 08/28/2024 4:49 PM H[employer]OL [employer]IC INSTRUCTOR 08/28/2024 5:00 PM H[employer]IC INSTRUCTOR Narrative [facility] - 09/03/2024 9:21 AM H[employer]IC INSTRUCTOR Likely skin contaminant; No further susceptibilities performed on this organism. us Brianna Wilson MD MICROBIOLOGY Final Re sult Performing Organization Address [facility]/ZIP Co de Phone Number [facility] [address] [place] [address], [facility] [address] [place], [place] [phone] * ETHANOL SERUM OR PLASMA (08/28/2024 4:41 PM H[employer] INSTRUCTOR) ETHANOL <0.010 <0.010 g/dL 08/28/2024 5:12 PM H[employer]OL MUSIC INSTRUCTOR [facility] Blood BLOOD SPECIMEN / Unknown Butterfly / Unknown 08/28/2024 4:41 PM H[employer] SCHOOL MUSIC INSTRUCTOR 08/28/2024 4:46 PM H[employer]IC INSTRUCTOR us Brianna Wilson MD CHEMISTRY Final Re sult Performing Organization Address City/[facility]/ZIP Co de Phone Number [facility] [address] [place], [place] [phone] * AMMONIA (08/28/2024 4:41 PM H[employer]OL MUSIC INSTRUCTOR) AMMONIA 21 16 - 60 umol/L 08/28/2024 5:05 PM H[employer] SCHOOL MUSIC INSTRUCTOR [facility] Blood BLOOD SPECIMEN / Unknown Butterfly / Unknown 08/28/2024 4:41 PM H[employer] SCHOOL MUSIC INSTRUCTOR 08/28/2024 4:46 PM H[employer] S[employer]OL MUSIC INSTRUCTOR Narrative [facility] - 08/28/2024 5:05 PM H[employer]OL [employer]IC INSTRUCTOR 1. Sulfasalazine and its metabolite Sulfapyridine at therapeutic concentrations may lead to falsely low results. 2. Temozolomide and its metabolite MTIC may lead to falsely elevated results, and its metabolite AIC may lead to falsely low results. us Brianna Wilson MD CHEMISTRY Final Re sult [facility] [address] [place] [address] * MR HEAD BRAIN WWO MR ANGIO HEAD WO NECK WWO (08/22/2024 12:29 PM H[employer]OL [employer]IC INSTRUCTOR) Anatomical Region Laterality Modality NECK, CAROTID, HEAD Magnetic Res onance 08/22/2024 1:05 PM H[employer]OL [employer]IC INSTRUCTOR Addenda Addendum by Emigdio Faustin MD on 08/22/2024 1:06 PM H[employer]CHOOL MUSIC INSTRUCTOR For Patients: As a result of the Cures Act, medical imaging exams and procedure reports are released immediately into your electronic medical record. You may view this report before your referring provider. If you have questions, please contact your health care provider. Dictation for this exam included within the brain MRI report from the same date. Dictated by Emgidio Faustin MD @ 08/22/2024 1:06:19 PM (Electronically Signed) Addendum by Emigdio Faustin MD on 08/22/2024 1:05 PM H[employer]OL [employer]IC INSTRUCTOR For Patients: As a result of the Cures Act, medical imaging exams and procedure reports are released immediately into your electronic medical record. You may view this report before your referring provider. If you have questions, please contact your health care provider. Dictation for this exam included within the brain MRI report from the same date. Dictated by Emigdio Faustin MD @ 08/22/2024 1:05:42 PM (Electronically Signed) Impressions 08/22/2024 1:05 PM H[employer]OL [employer]IC INSTRUCTOR MRI Head: 1. Punctate recent infarct within the left peritrigonal white matter. 2. Typical evolution of now early chronic infarcts within the left frontal/parietal regions, both cortical and subcortical in location. These approximate the left arterial watershed territories, and are usually due to low flow state and/or distal embolic disease. 3. Mild chronic microvascular ischemic changes. MRA Head: 1. Focal occlusion of the left M1 MCA with opacification of left MCA branches more distally. This is age indeterminate and more likely represents chronic luminal occlusion from atherosclerotic disease although superimposed acute thrombus is not excluded. 2. Moderate stenosis of the left P2 posterior cerebral artery and left mid intradural vertebral artery. MRA Neck: 1. 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 2. Mild stenosis of the internal carotid artery origins, with atherosclerotic irregularity on the left. Dictated by Emigdio Faustin MD @ 08/22/2024 1:05:14 PM (Electronically Signed) Narrative 08/22/2024 1:05 PM H[employer]OL [employer]IC INSTRUCTOR For Patients: As a result of the Cures Act, medical imaging exams and procedure reports are released immediately into your electronic medical record. You may view this report before your referring provider. If you have questions, please contact your health care provider. INDICATION: TIAs. TECHNIQUE: Brain MRI with and without contrast. MRA head and neck with and without contrast. 20 cc Dotarem gadolinium based contrast administered. COMPARISON: Head CT from 08/21/2024. brain MRI from 06/06/2024. FINDINGS: MRI Head: Tiny recent infarct within the left peritrigonal white matter. Series 7, image 35. Typical evolution of now early chronic infarcts within the left frontal/parietal regions, both cortical and subcortical in location. No acute or chronic intracranial blood products. No mass or pathologic intracranial enhancement. Scattered FLAIR hyperintensities within the supratentorial white matter elsewhere, typical for chronic microvascular ischemic change. No hydrocephalus or extra-axial collections. The pituitary gland, parasellar structures and optic chiasm are normal. Posterior fossa is normal. The orbital contents are normal. No calvarial or skull base marrow signal abnormality. A left maxillary sinus retention cyst. Mild ethmoid air cell mucosal thickening. No extracranial soft tissue findings. MRA Head: Exam degraded by motion artifact. There is focal occlusion of the left M1 MCA with opacification of left MCA branches more distally. The anterior cerebral arteries are patent. The right middle cerebral artery is patent. Moderate stenosis of the left P2 posterior cerebral artery. Right posterior cerebral artery is patent. Moderate stenosis of the left mid intradural vertebral artery. Right intradural vertebral artery is patent. Basilar artery is patent. The intracranial internal carotid arteries are patent. No aneurysm or high flow vascular malformation. MRA Neck: Common origin of the right brachiocephalic and left common carotid artery. The proximal subclavian arteries are patent. The common carotid arteries are patent. Mild stenosis of the right internal carotid artery origin. Mild stenosis and ulcerative irregularity of the left internal carotid artery origin. Right cervical vertebral artery is patent. The left vertebral artery is nearly occluded proximally with 2nd set of focal occlusion at the V2 segment and at the sclerotic irregularity distally. No abnormal dilatation of the major cervical arteries. Procedure Note Emigdio Faustin MD - 08/22/2024 For Patients: As a result of the Cures Act, medical imagingexams and procedure reports are released immediately into your electronicmedical record. You may view this report before your referring provider.If you have questions, please contact your health care provider. INDICATION: TIAs. TECHNIQUE: Brain MRI with and without contrast. MRA head and neck with and withoutcontrast. 20 cc Dotarem gadolinium based contrast administered. COMPARISON: Head CT from 08/21/2024. brain MRI from 06/06/2024. FINDINGS: MRI Head: Tiny recent infarct within the left peritrigonal white matter. Series 7,image 35. Typical evolution of now early chronic infarcts within the leftfrontal/parietal regions, both cortical and subcortical in location. Noacute or chronic intracranial blood products. No mass or pathologicintracranial enhancement. Scattered FLAIR hyperintensities within thesupratentorial white matter elsewhere, typical for chronic microvascularischemic change. No hydrocephalus or extra-axial collections. Thepituitary gland, parasellar structures and optic chiasm are normal.Posterior fossa is normal. The orbital contents are normal. No calvarial or skull base marrow signalabnormality. A left maxillary sinus retention cyst. Mild ethmoid air cellmucosal thickening. No extracranial soft tissue findings. MRA Head: Exam degraded by motion artifact. There is focal occlusion of the left M1MCA with opacification of left MCA branches more distally. The anteriorcerebral arteries are patent. The right middle cerebral artery is patent.Moderate stenosis of the left P2 posterior cerebral artery. Rightposterior cerebral artery is patent. Moderate stenosis of the left midintradural vertebral artery. Right intradural vertebral artery is patent.Basilar artery is patent. The intracranial internal carotid arteries arepatent. No aneurysm or high flow vascular malformation. MRA Neck: Common origin of the right brachiocephalic and left common carotid artery.The proximal subclavian arteries are patent. The common carotid arteriesare patent. Mild stenosis of the right internal carotid artery origin.Mild stenosis and ulcerative irregularity of the left internal carotidartery origin. Right cervical vertebral artery is patent. The leftvertebral artery is nearly occluded proximally with 2nd set of focalocclusion at the V2 segment and at the sclerotic irregularity distally. Noabnormal dilatation of the major cervical arteries. IMPRESSION: MRI Head: 1. Punctate recent infarct within the left peritrigonal white matter. 2. Typical evolution of now early chronic infarcts within the leftfrontal/parietal regions, both cortical and subcortical in location. Theseapproximate the left arterial watershed territories, and are usually dueto low flow state and/or distal embolic disease. 3. Mild chronic microvascular ischemic changes. MRA Head: 1. Focal occlusion of the left M1 MCA with opacification of left MCAbranches more distally. This is age indeterminate and more likelyrepresents chronic luminal occlusion from atherosclerotic disease althoughsuperimposed acute thrombus is not excluded. 2. Moderate stenosis of the left P2 posterior cerebral artery and left midintradural vertebral artery. MRA Neck: 1. 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 2. Mild stenosis of the internal carotid artery origins, withatherosclerotic irregularity on the left. Dictated by Emigdio Faustin MD @ 08/22/2024 1:05:14 PM (Electronically Signed) us Kris Aguero RN MR Edited Result - Final * ECHO TTE LIMITED WO CONTRAST W COLOR W LTD DOPPLER (08/22/2024 10:51 AM HIGH SCHOOL MUSIC INSTRUCTOR) AORTIC VALVE MEAN PG 5 mmHg EJECTION FRACTION 76 % LVEDD 4.4 cm Anatomical Region Laterality Modality Other 08/22/2024 10:0 9 AM HIGH SCHOOL MUSIC INSTRUCTOR Narrative 08/22/2024 11:15 AM HIGH SCHOOL MUSIC INSTRUCTOR ECHOCARDIOGRAM JULIANE SÁNCHEZ : 1960 64 years Study Date: 08/22/2024 10:09:20 AM Gender: F BP: 163/67 mmHg Height: 150.00 cm BSA: 1.82 m Weight: 88.00 kg Tech: EB Referring MD: ALEX CARDOSO Site: [facility] Reading Location: [facility] Patient Location: Inpatient. Procedure: Limited 2D , Color Doppler and Limited Spectral Doppler. Indication for study: TIA Cardiac Rhythm: Normal sinus.Study quality: Fair. Final Impressions: Limited Echocardiogram performed 1. Normal left ventricular size, mildly increased wall thickness, normal global systolic function, calculated EF of 76 %. 2. Right ventricular cavity size is normal, global systolic RV function is normal. 3. Mildly enlarged left atrium. 4. The aortic valve is sclerotic, no stenosis and trivial regurgitation. 5. The mitral valve is sclerotic, trace mitral regurgitation. 6. No pericardial effusion. Chamber Sizes and Function Normal left ventricular size, mildly increased wall thickness, normal global systolic function, calculated EF of 76 %. No resting regional wall motion abnormality visualized. Left atrial size is mildly enlarged. Right ventricular cavity size is normal, global systolic RV function is normal. Valves, RV Pressures and Diastolic Function The aortic valve is sclerotic, no stenosis and trivial regurgitation. The mitral valve is sclerotic, trace mitral regurgitation. Mild mitral annular calcification is present. Masses, Effusion, Shunts There is no pericardial effusion. The inferior vena cava is normal sized, respiratory size variation greater than 50%. No left to right shunting was detected by limited color flow Doppler interrogation of the interatrial septum. MEASUREMENTS AND CALCULATIONS 2-D Measurements and LV Function: LVID (d) 4.4 cm Planimetered EF 76 % LVID (s) 2.8 cm LV FS% (2D) 37 % IVS (d) 1.4 cm LVOT diameter 2.0 cm LVPW (d) 1.3 cm HR 73 bpm LA 4.7 cm RV Max 4C (d) 3.0 cm Aortic Valve: Vmax 1.6 m/s AGUSTO (V) 2.82 cm VTI 0.31 m AGUSTO (I) 2.38 cm LVOT V max 1.4 m/s Max PG 10 mmHg LVOT VTI 0.22 m Mean PG 5 mmHg SV 73 ml Dim Index 0.73 SV index 40 ml/m CO 5.3 l/min AV Ejection Time 0.30 sec CI 2.9 l/min/m AV Flow Rate 243 ml/s Tricuspid Valve and estimated PA pressures: TAPSE 1.7 cm . This study was interpreted by an [facility] accredited facility. CC: Juliane Schrader, Orlando Concepcion. Final Procedure Note Alma Bernal, [facility] - 08/22/2024 ECHOCARDIOGRAM JULIANE SÁNCHEZ : 1960 64 years Study Date: 08/22/2024 10:09:20 AM Gender: F BP: 163/67 mmHg Height: 150.00 cm BSA: 1.82 m Weight: 88.00 kg Tech: EB Referring MD: ALEX CARDOSO Site: [facility] Reading Location: [facility] Patient Location: Inpatient. Procedure: Limited 2D , Color Doppler and Limited Spectral Doppler. Indication for study: TIA Cardiac Rhythm: Normal sinus.Study quality: Fair. Final Impressions: Limited Echocardiogram performed 1. Normal left ventricular size, mildly increased wall thickness, normalglobal systolic function, calculated EF of 76 %. 2. Right ventricular cavity size is normal, global systolic RV functionis normal. 3. Mildly enlarged left atrium. 4. The aortic valve is sclerotic, no stenosis and trivialregurgitation. 5. The mitral valve is sclerotic, trace mitral regurgitation. 6. No pericardial effusion. Chamber Sizes and Function Normal left ventricular size, mildly increased wall thickness, normalglobal systolic function, calculated EF of 76 %. No resting regional wallmotion abnormality visualized. Left atrial size is mildly enlarged. Rightventricular cavity size is normal, global systolic RV function isnormal. Valves, RV Pressures and Diastolic Function The aortic valve is sclerotic, no stenosis and trivial regurgitation. Themitral valve is sclerotic, trace mitral regurgitation. Mild mitral annularcalcification is present. Masses, Effusion, Shunts There is no pericardial effusion. The inferior vena cava is normal sized,respiratory size variation greater than 50%. No left to right shunting wasdetected by limited color flow Doppler interrogation of the interatrialseptum. MEASUREMENTS AND CALCULATIONS 2-D Measurements and LV Function: LVID (d) 4.4 cm Planimetered EF 76 % LVID (s) 2.8 cm LV FS% (2D) 37 % IVS (d) 1.4 cm LVOT diameter 2.0 cm LVPW (d) 1.3 cm HR 73 bpm LA 4.7 cm RV Max 4C (d) 3.0 cm Aortic Valve: Vmax 1.6 m/s AGUSTO (V) 2.82 cm VTI 0.31 m AGUSTO (I) 2.38 cm LVOT V max 1.4 m/s Max PG 10 mmHg LVOT VTI 0.22 m Mean PG 5 mmHg SV 73 ml Dim Index 0.73 SV index 40 ml/m CO 5.3 l/min AV Ejection Time 0.30 sec CI 2.9 l/min/m AV Flow Rate 243 ml/s Tricuspid Valve and estimated PA pressures: TAPSE 1.7 cm . This study was interpreted by an [facility] accredited facility. CC: Juliane Schrader, Orlando Concepcion. Final us Alex Cardoso MD ECHO ORD Final Result * SCAN-CARDIAC STRIP (08/22/2024 10:20 AM HIGH SCHOOL MUSIC INSTRUCTOR) us Scanner OTHER Final Result * (ABNORMAL) Hemoglobin A1C Screening (08/22/2024 5:44 AM HIGH SCHOOL MUSIC INSTRUCTOR) HEMOGLOBIN A1C SCREENING 7.6(H) <=6.4 % 08/22/2024 7:20 AM HIGH SCHOOL MUSIC INSTRUCTOR [facility] Blood BLOOD SPECIMEN / Unknown Venipuncture / Unknown 08/22/2024 5:44 AM HIGH SCHOOL MUSIC INSTRUCTOR 08/22/2024 6:24 AM HIGH SCHOOL MUSIC INSTRUCTOR [facility] - 08/22/2024 7:20 AM HIGH SCHOOL MUSIC INSTRUCTOR (<5.7%) Normal (5.7% to 6.4%) Indicates prediabetes (>=6.5%) Confirms diabetes Falsely low levels may be seen with: Recent Transfusion, Recent Significant Blood Loss, Hemolytic Diseases, or Falsely elevated levels may be seen with: Untreated Anemias, Splenectomy Alex Cardoso MD CHEMISTRY Final Result [facility] [address] [place] [address] * (ABNORMAL) PROTEIN ELP,SERUM (08/22/2024 5:44 AM HIGH SCHOOL MUSIC INSTRUCTOR) ELP,ALBUMIN 3.17(L) 3.31 - 5.31 g/dL 08/26/2024 11:15 AM HIGH SCHOOL MUSIC INSTRUCTOR [facility] ELP,ALPHA 1 0.38 0.19 - 0.42 g/dL 08/26/2024 11:15 AM HIGH SCHOOL MUSIC INSTRUCTOR [facility] ELP,ALPHA 2 0.99 0.44 - 1.03 g/dL 08/26/2024 11:15 AM HIGH SCHOOL MUSIC INSTRUCTOR [facility] ELP,GAMMA 0.87 0.59 - 1.46 g/dL 08/26/2024 11:15 AM HIGH SCHOOL MUSIC INSTRUCTOR [facility] ELP,BETA 0.79 0.52 - 1.05 g/dL 08/26/2024 11:15 AM HIGH SCHOOL MUSIC INSTRUCTOR [facility] ELP INTERP,SERUM Mild hypoalbuminemia, nonspecific pattern. No monoclonal protein detected. Interpreted and electronically signed by: Fransisco Guillen Jr, MD 08/26/2024 11:15 AM [facility] PROTEIN,TOTAL 6.2 6.0 - 8.0 g/dL 08/26/2024 11:15 AM [facility] Blood BLOOD SPECIMEN / Unknown Venipuncture / Unknown 08/22/2024 5:44 AM HIGH SCHOOL MUSIC INSTRUCTOR 08/22/2024 6:25 AM HIGH SCHOOL MUSIC INSTRUCTOR us Alex Cardoso MD CHEMISTRY Final Result Performing Organization Address City/[facility]/ZIP Co de Phone Number [facility] [address] [place] [address], [place] * (ABNORMAL) Lipid Panel (08/22/2024 5:44 AM HIGH SCHOOL MUSIC INSTRUCTOR) Pathologist [facility] CHOLESTEROL,TOTAL 112 100 - 199 mg/dL 08/22/2024 8:14 AM [facility] Comment: Cholesterol, Total Reference Ranges Desirable <200 mg/dL Borderline 200-239 mg/dL High >=240 mg/dL TRIGLYCERIDES 179(H) <150 mg/dL 08/22/2024 8:14 AM [facility] HDL CHOLESTEROL 31(L) >40 mg/dL 8:14 AM [facility] NON-HDL CHOLESTEROL 81 <145 mg/dl 08/22/2024 8:14 AM [facility] CHOL/HDL RATIO 3.61 <4.50 08/22/2024 8:14 AM [facility] LDL CHOLESTEROL 45 <=130 mg/dL 08/22/2024 8:14 AM [facility] VLDL CHOLESTEROL 36(H) <=30 mg/dL 08/22/2024 8:14 AM [facility] PROVIDER ORDERED STATUS RANDOM 08/22/2024 8:14 AM [facility] Blood BLOOD SPECIMEN / Unknown Venipuncture / Unknown 08/22/2024 5:44 AM HIGH SCHOOL MUSIC INSTRUCTOR 08/22/2024 6:25 AM HIGH SCHOOL MUSIC INSTRUCTOR us Alex Cardoso MD CHEMISTRY Final Result [facility] [address] [place] [address] * SCAN-CARDIAC STRIP (08/22/2024 4:50 AM HIGH SCHOOL MUSIC INSTRUCTOR) us Scanner OTHER Final Result * CT HEAD STROKE PROTOCOL WITHOUT CONTRAST Thrombolytic Candidate (08/21/2024 9:28 PM HIGH SCHOOL MUSIC INSTRUCTOR) Anatomical Region Laterality Modality BRAIN Computed Tomogra phy 08/21/2024 9:56 PM HIGH SCHOOL MUSIC INSTRUCTOR Narrative 08/21/2024 9:56 PM HIGH SCHOOL MUSIC INSTRUCTOR For Patients: As a result of the Cures Act, medical imaging exams and procedure reports are released immediately into your electronic medical record. You may view this report before your referring provider. If you have questions, please contact your health care provider. Indication: Right hand neck and mouth numbness, resolved Technique: Noncontrast CT through the head with multiplanar reformats Comparison: CT head performed 06/08/2024 Findings: Motion degraded examination. Brain: No acute hemorrhage. No definite acute infarct. No significant mass effect or midline shift. No gross evidence of a mass lesion or cerebral edema. Increased prominence of a left posterior frontal convexity infarct compared to prior examinations. Mild chronic microvascular ischemic disease. Ventricles: No acute abnormality appreciated. Orbits, sinuses, mastoids: No acute abnormality appreciated. Calvarium and soft tissues: No acute abnormality appreciated. Partially visualized soft tissue nodule in the left parotid gland measures 2.0 centimeters. This is not significantly changed from prior studies. Impression: 1. Motion degraded examination. There is increased prominence of an infarct of the posterior left frontal convexity seen on prior CT and MRI from June 2024. Favor this to represent evolution of the prior infarcts, now early chronic, with no acute abnormality appreciated. However, given distribution of symptoms, if there is concern for an acute on chronic event, MRI would be recommended for further evaluation. 2. Partially visualized soft tissue lesion in the left parotid gland, grossly unchanged within field of view compared to prior examination. Findings were communicated by telephone to Dr. Rivera at 2150 on 08/21/2024. Please note that all CT scans at this facility use dose modulation, iterative reconstruction, and/or weight-based dosing when appropriate to reduce radiation dose to as low as reasonably achievable. Dictated by John Davidson MD @ 08/21/2024 9:56:01 PM (Electronically Signed) Procedure Note John Davidson MD - 12/18/2024 For Patients: As a result of the Cures Act, medical imagingexams and procedure reports are released immediately into your electronicmedical record. You may view this report before your referring provider.If you have questions, please contact your health care provider. Indication: Right hand neck and mouth numbness, resolved Technique: Noncontrast CT through the head with multiplanar reformats Comparison: CT head performed 06/08/2024 Findings: Motion degraded examination. Brain: No acute hemorrhage. No definite acute infarct. No significant masseffect or midline shift. No gross evidence of a mass lesion or cerebraledema. Increased prominence of a left posterior frontal convexity infarctcompared to prior examinations. Mild chronic microvascular ischemicdisease. Ventricles: No acute abnormality appreciated. Orbits, sinuses, mastoids: No acute abnormality appreciated. Calvarium and soft tissues: No acute abnormality appreciated. Partiallyvisualized soft tissue nodule in the left parotid gland measures 2.0centimeters. This is not significantly changed from prior studies. Impression: 1. Motion degraded examination. There is increased prominence of aninfarct of the posterior left frontal convexity seen on prior CT and MRIfrom June 2024. Favor this to represent evolution of the priorinfarcts, now early chronic, with no acute abnormality appreciated.However, given distribution of symptoms, if there is concern for an acuteon chronic event, MRI would be recommended for further evaluation. 2. Partially visualized soft tissue lesion in the left parotid gland,grossly unchanged within field of view compared to prior examination. Findings were communicated by telephone to Dr. Rivera at 2150 on08/21/2024. Please note that all CT scans at this facility use dose modulation,iterative reconstruction, and/or weight-based dosing when appropriate toreduce radiation dose to as low as reasonably achievable. Dictated by John Davidson MD @ 08/21/2024 9:56:01 PM (Electronically Signed) us Frank Rivera MD CT Final Re sult * EXTENDED HOLTER (08/19/2024) us Rehana Pérez NP CARDIAC SERVICES ORD Fi nal Result * SCAN-EVENT MONITOR (08/02/2024 12:00 AM HIGH SCHOOL MUSIC INSTRUCTOR) us Scanner OTHER Final Result * ANTI HCV (05/11/2022 11:13 AM CDT) HEPATITIS C ANTIBODY Non-React ebony Non-React ebony 05/12/2022 1:53 AM CDT [facility] Comment:Antibodies to HCV no t detected; does not exclude the possibility of exposure to HCV. Blood BLOOD SPECIMEN / Unknown Venipuncture / Unknown 05/11/2022 11:13 AM CDT 05/11/2022 11:15 AM CDT us Stacy Trevizo MD SEND OUTS Fin al Result [facility] [address] [place] [address], [place] * XR MAMMO BILAT DIAG FFDM (12/05/2007 9:36 AM CDT) MAMMOGRAM ACR 1 Negative Anatomical Region Laterality Modality BREASTS, Breast Left, Breast Right Bilateral Mammography 12/05/2007 9:36 AM CDT Narrative 12/05/2007 12:49 PM CDT BILATERAL FULL-FIELD DIAGNOSTIC DIGITAL MAMMOGRAPHY WITH COMPUTER-AIDED DETECTION: INDICATION: 1. Enlarged right supraclavicular lymph node. Evaluate for breast process as cause. 2. Patient is due for annual screening. TECHNIQUE: Full-field digital mammography with computer-aided detection. FINDINGS: Both breasts are negative. No mammographic signs of malignancy. No significant change since 06/14/01. ACR 1 Negative Procedure Note Jose Newton MD - 12/05/2007 BILATERAL FULL-FIELD DIAGNOSTIC DIGITAL MAMMOGRAPHY WITH COMPUTER- AIDEDDETECTION: INDICATION: 1. Enlarged right supraclavicular lymph node. Evaluate for breastprocess as cause. 2. Patient is due for annual screening. TECHNIQUE: Full-field digital mammography with computer-aideddetection. FINDINGS: Both breasts are negative. No mammographic signs ofmalignancy. No significant change since 06/14/01. 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 Do not delete or resolve the Infection Flag. 08/22/2024 08/22/2024 Insurance MEDICAID MEDICARE PART A HB ONLY [facility] MR/MSHO BLUE ADVANTAGE [place] Advance Directives Documents on File Type Date Recorded Patient Research Archaeologist Expl anation Healthcare Directive 06/06/2024 024 * Full Code (Latest Code Status on File) Date Activated Date Inactivated Comments 09/29/2024 4:15 PM 10/03/2024 5:19 PM Question Answer Comments Code Status Discussion: Reviewed Preferences * Full Code Date Activated Date Inactivated Comments 09/12/2024 4:06 AM 09/14/2024 1:00 PM Question Answer Comments Code Status Discussion: Reviewed Preferences * Full Code Date Activated Date Inactivated Comments 08/28/2024 10:57 PM 08/30/2024 4:41 PM Question Answer Comments Code Status Discussion: Reviewed Preferences * Full Code Date Activated Date Inactivated Comments 08/21/2024 11:27 PM 08/22/2024 4:51 PM Question Answer Comments Code Status Discussion: Reviewed Preferences * Full Code Date Activated Date Inactivated Comments 06/04/2024 5:35 PM 06/07/2024 5:40 PM Question Answer Comments Code Status Discussion: Reviewed Preferences Care Teams Production Support Specialist Relationship Specialty Start Date End Date Orlando Concepcion DO [address] [place] [id number] PCP - General Family Practice 06/11/24 Karissa Childs MD [address] [facility] [address] [place] [address] Rheumatology Rheumatology 01/19/16 Giovanna Diez PharmD [address] [place] [address] WENDY Fitzgerald [id number] Pharmacist Medication Management Pharmacology 06/26/24 06/26/27
[2024-10-29] MEDS: DOC/MIN OIL/MAG CIT/SOD PHOS 376 ML ENEMA PR (18:13)
--- NOTE | 2024-10-29 18:47 | ED_ITS ---
HPI - Abdominal Pain General Chief Complaint: Abdominal Pain Stated Complaint: Abdominal pain Time Seen by Provider: 10/29/24 16:44 History of Present Illness HPI narrative: This patient comes in with abdominal pain and cramping that she attributes to constipation. She states that she has not had a good bowel movement for 3 days or so. She states that her doctor made recommendations for some [id number] treatments but she has not used any of these. She tells me that she does not have any money dose he gets paid on Monday so she could not afford any of these treatments. She now comes into the emergency room for help regarding constipation. She does not report any vomiting and has had no fevers or blood in the toilet. Related Data Home Medications ?Medication ?Instructions ?Recorded ?Confirmed alprazolam 0.25 mg tablet mg 10/29/24 amlodipine 10 mg tablet mg DAILY 10/29/24 atorvastatin 80 mg tablet mg DAILY 10/29/24 blood sugar diagnostic (Accu-Chek 10/29/24 10/29/24 Guide test strips) brimonidine 0.2 % eye drops 1 drp ophthalmic (eye-left) BID 10/29/24 10/29/24 clobetasol 0.05 % topical cream topical BID PRN 10/29/24 famotidine 40 mg tablet mg DAILY 10/29/24 ferrous gluconate 324 mg (38 mg mg 10/29/24 iron) tablet ferrous sulfate 325 mg (65 mg mg PO DAILY 10/29/24 iron) tablet,delayed release hydralazine 50 mg tablet 50 mg PO DAILY 10/29/24 10/29/24 hydroxyzine pamoate 25 mg capsule mg 3XD 10/29/24 lancets (Accu-Chek Softclix 10/29/24 10/29/24 Lancets) levetiracetam 500 mg tablet mg PO 10/29/24 levothyroxine 75 mcg tablet 75 mcg PO DAILY 10/29/24 10/29/24 lisinopril 10 mg tablet 10 mg PO DAILY 10/29/24 10/29/24 loperamide 2 mg capsule 2 mg PO Q4H PRN diarrhea 10/29/24 10/29/24 meclizine 25 mg tablet 25 mg PO DAILY 10/29/24 10/29/24 ondansetron 4 mg disintegrating 4 mg translingual Q8H PRN 10/29/24 10/29/24 tablet pioglitazone 45 mg tablet 45 mg PO DAILY 10/29/24 10/29/24 timolol maleate 0.5 % eye drops 1 drp ophthalmic (eye) BID 10/29/24 10/29/24 triamcinolone acetonide 0.1 % applic topical 3XD 10/29/24 topical cream Allergies Allergy/AdvReac Type Severity Reaction Status Date / Time Unable to Assess Allergy Verified 10/29/24 17:08 Review of Systems Status of ROS Reports: 10 or more systems reviewed and unremarkable except as noted in History and below Narrative Constitutional: No fevers, no weight gain or loss. Eyes: No discharge. No vision changes. HENT: No congestion, no sore throat, no ear pain. Cardiovascular: No chest pain, no palpitations. Respiratory: No shortness of breath, no wheezes, no cough. Gastrointestinal: No vomiting, no diarrhea. Crampy abdominal pain related to constipation. Genitourinary: No dysuria, no hematuria. Musculoskeletal: Normal range of motion. Skin: No rashes, no pruritis. Neurological: No dizziness, weakness, sensory change, speech change. Endo/Heme/Allergies: No bruising or bleeding. No polydipsia. Pysch: no suicidality, no anxiety, no insomnia. All other systems reviewed and are negative. Exam Narrative: Exam Narrative: Constitutional: Well-developed, well-nourished, no acute distress. HEENT: Normocephalic, atraumatic. Neck: Normal range of motion. Nontender. Supple. Heart: Intact distal pulses. Lungs: No chest discomfort. No wheezes, rhonchi, or rales. Abdomen: Diffuse tenderness through the abdomen. Bowel sounds are normal. Back: Normal range of motion. Extremities: Normal range of motion. No injury. Skin: Intact. No rash. Warm. No erythema or pallor. Neurologic: No altered sensation. No weakness. Alert and oriented. Psychiatric: No suicidality. No anxiety or depression. No insomnia. Nursing notes and vitals signs are reviewed. Const: Vital Signs, click to edit/add: Vital Signs - 24 hr 10/29/24 16:55 Temperature 98.6 F Pulse Rate [Pulse Oximeter] 102 H Respiratory Rate 18 Blood Pressure [Ri ght Upper Arm] 157/71 H Pulse Oximetry 97 Course Vital Signs Vital signs: Initial Vital Signs Temperature 98.6 F 10/29/24 16:55 Temperature Source Temporal Artery Scan 10/29/24 16:55 Pulse Rate 102 H 10/29/24 16:55 Respiratory Rate 18 10/29/24 16:55 Blood Pressure 157/71 H 10/29/24 16:55 Blood Pressure Mean 99 10/29/24 16:55 Pulse Oximetry 97 10/29/24 16:55 Vital Signs Temperature 98.6 F 10/29/24 16:55 Pulse Rate 102 H 10/29/24 16:55 Respiratory Rate 18 10/29/24 16:55 Blood Pressure 157/71 H 10/29/24 16:55 Pulse Oximetry 97 10/29/24 16:55 Temperature 98.6 F 10/29/24 16:55 Pulse Rate 102 H 10/29/24 16:55 Respiratory Rate 18 10/29/24 16:55 Blood Pressure 157/71 H 10/29/24 16:55 Pulse Oximetry 97 10/29/24 16:55 Medications Administered Medications: Discontinued Medications Generic Name Dose Route Start Last Admin Trade Name Freq PRN Reason Stop Dose Admin Miscellaneous Medication 376 ml 10/29/24 17:22 10/29/24 18:13 Doc/Min Oil/Mag Cit/Sod Phos 376 Ml Enema TN 10/29/24 17:23 376 ml ONCE ONE Administration MDM - Abdominal Pain MDM Narrative Medical decision making narrative: This patient comes in with abdominal pain related to constipation. She received a pink lady enema and had a sizable bowel movement with relief of her symptoms. She is okay to be discharged home and is encouraged use [id number] bowel regimens as needed and directed. Discharge Plan Discharge Clinical Impression: Abdominal pain, Constipation Patient Disposition: Home, Self-Care Condition: Improved Additional Instructions: Take plenty of fluids. Use [id number] medicines to manage symptoms of constipation. Follow up with MD return if worsening. Prescriptions: No Action atorvastatin 80 mg tablet DAILY loperamide 2 mg capsule 2 mg PO Q4H PRN (Reason: diarrhea) levetiracetam 500 mg tablet PO famotidine 40 mg tablet DAILY clobetasol 0.05 % cream topical BID PRN pioglitazone 45 mg tablet 45 mg PO DAILY Patient Comments: [NO ORIGINAL SIG] (DME) Accu-Chek Guide test strips Strip MISCELLANEOUS 3XD triamcinolone acetonide 0.1 % cream topical 3XD levothyroxine 75 mcg tablet 75 mcg PO DAILY (DME) lancets [Accu-Chek Softclix Lancets] Misc MISCELLANEOUS BID alprazolam 0.25 mg tablet Patient Comments: [NO ORIGINAL SIG] meclizine 25 mg tablet 25 mg PO DAILY Patient Comments: [NO ORIGINAL SIG] amlodipine 10 mg tablet DAILY lisinopril 10 mg tablet 10 mg PO DAILY brimonidine 0.2 % drops 1 drp ophthalmic (eye-left) BID hydralazine 50 mg tablet 50 mg PO DAILY Patient Comments: [NO ORIGINAL SIG] ferrous sulfate 325 mg (65 mg iron) tablet,delayed release (DR/EC) PO DAILY timolol maleate 0.5 % drops 1 drp ophthalmic (eye) BID ondansetron 4 mg tablet,disintegrating 4 mg translingual Q8H PRN Patient Comments: [NO ORIGINAL SIG] hydroxyzine pamoate 25 mg capsule 3XD ferrous gluconate 324 mg (38 mg iron) tablet Patient Comments: [NO ORIGINAL SIG] Follow Up/Referrals: MARILY NUÑEZ DO [Primary Care Provider] - Stand Alone Forms: [facility] Info Instructions
[2024-10-29 19:01] VITALS: BP 171/81; PULSE 95; RESP 16; O2SAT 97
== END 2024-10-29 19:06 | disposition home or self-care (01) ==
PROVIDERS: Emergency Provider Emergency Medicine Emergency Medical Services; PCP Student in an Organized Health Care Education/Training Program
DX: R10.9 Unspecified abdominal pain (principal); K59.00 Constipation, unspecified
CPT/HCPCS: 99283; 99284

== ENCOUNTER 2025-02-05 13:15 | Outpatient (RCR) | payer MEDICARE, BC, SELFPAY | END 2025-06-05 23:59 | disposition home or self-care (01) | PROVIDERS: PCP Student in an Organized Health Care Education/Training Program; Visit Provider Student in an Organized Health Care Education/Training Program | DX: R26.89 Other abnormalities of gait and mobility (principal); I63.50 Cerebral infarction due to unspecified occlusion or stenosis of unspecified cerebral artery; I51.7 Cardiomegaly; I69.992 Facial weakness following unspecified cerebrovascular disease; R47.1 Dysarthria and anarthria; R48.8 Other symbolic dysfunctions; Z51.89 Encounter for other specified aftercare | CPT/HCPCS: 92523; 97110; 97165; X5282 ==

== ENCOUNTER 2025-03-28 09:23 | Emergency (ER) | payer MEDICARE, BC, SELFPAY ==
--- OUTSIDE RECORDS SUMMARY | 2025-03-28 09:25 | XMS_ITS | Encounter Summary ---
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 [address] [place] [id number] Social History Tobacco Use Types Packs/Day Years Used Date Smoking Tobacco: Some Days Cigarettes Smokeless Tobacco: Never Alcohol Use Standard Drinks/Week Comments No 0 (1 standard drink = 0.6 oz pur e alcohol) [facility] Utilities Answer Date Recorded In the past 12 months has e [place], gas, oil, or water [employer] threatened to shut off services in your home? No 11/07/2024 Hunger Vital Sign Answer Date Recorded Within the past 12 months, y ou worried that your food would run out before you got the money to buy more. Never true 11/08/19 25 Within the past 12 months, t he food you bought just didn't last and you didn't have money to get more. Never true 11/07/2024 PRAPARE - Transportation Answer Date Re corded In the past 12 months, has l ack of transportation kept you from medical appointments or from getting medications? No 02/2025 In the past 12 months, has l ack of transportation kept you from meetings, work, or from getting things needed for daily living? No 11/07/2024 Housing Stability Answer Date Recorded What is your living situation today? 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 - 02/27/2025 4:52 PM CDT Please PCP elsewhere - There is evidence in Care Everywhere that the patient is receiving Primary Care at another organization documented in this encounter Plan of Treatment Not on file documented as of this encounter Visit Diagnoses Not on filedocumented in this encounter Care Teams Fish Hatchery Inspector Relationship Specialty Start Date End Date None Reported, Pcp PCP - General Family Medicine 02/27/25 documented as of this encounter
--- OUTSIDE RECORDS SUMMARY | 2025-03-28 09:25 | XMS_ITS | Clinical Summary ---
Author Organization [facility] Address [address] [place] [address] Care Team Providers Care Fire Crew Specialist Name Role Phone Karissa Childs MD Unavailable [phone] Orlando Concepcion DO Primary Care Provider [phone] Giovanna Diez PharmD Unavailable [phone] Allergies Active Allergy Reactions Criticality Noted Date Comments Atenolol Dyspnea,Shortness Of Breath 02/05/2016 Azithromycin Dyspnea 02/20/2006 Chlorthalidone Other - Describe In Comment Field 02/09/2016 Sweating and numb legs Ciprofloxacin Tinnitus 11/04/2015 Clindamycin Diarrhea,GI Upset 07/07/2020 Diatrizoate Allergen 11/16/2005 Erythromycin Dyspnea 11/16/2005 Hydralazine Headache 11/19/2024 Labetalol Other - Describe In Comment Field 11/18/2024 Abdominal pain and shortness of breath Lisinopril Other - Describe In Comment Field [...] 1 Drop into left eye at bedtime. 02/06/20 24 Active timoloL maleate (TIMOPTIC) 0.5 % ophthalmic solution Place 1 Drop into right eye at bedtime. 02/06/20 24 Active lancetsIndications :Type 2 diabetes mellitus with other skin complication, without long-term current use of insulin (HC) Dispense item covered by pt ins. E11.65 IDDM type II, uncontrolled - Test 3 times/day. 100 Each 4 8:53 AM CDT 06/07/20 24 Active atorvastatin (LIPITOR) 80 mg tabletIndications: Cerebrovascular accident (CVA), unspecified mechanism (HC) Take 1 Tablet (80 mg) by mouth at bedtime. 90 Tablet 3 07/05/20 24 Active famotidine (PEPCID) 40 mg tablet Take 40 mg by mouth once daily if needed for Heartburn or GI Upset. 05/14/20 24 Active ondansetron (ZOFRAN ODT) 4 mg disintegrating tabletIndications: Nausea Place 1 Tablet (4 mg) on the tongue every 8 hours if needed for Nausea/Vomiting. 30 Tablet 07/09/20 24 Active pioglitazone (ACTOS) 45 mg tabletIndications: Type 2 diabetes mellitus with complication, with long-term current use of insulin (HC) Take 1 Tablet (45 mg) by mouth once daily. 90 Tablet 3 07/18/20 24 Active blood sugar diagnostic (Accu-Chek Guide test strips) stripIndications:T ype 2 diabetes mellitus with other skin complication, without long-term current use of insulin (HC) Dispense item covered by pt ins. E11.9 IDDM type II - Test 3 times/day. 200 Each 3 07/29/20 24 Active meclizine (ANTIVERT) 25 mg tabletIndications: Dizziness Take 1 Tablet (25 mg) by mouth 3 times daily if needed for Vertigo. 30 Tablet 09/02/20 24 Active ALPRAZolam (XANAX) 0.25 mg tabletIndications: Dizziness Take 1 Tablet (0.25 mg) by mouth at bedtime if needed for Anxiety. 5 Tablet 09/06/19 25 Active clobetasol (TEMOVATE) 0.05 % cream Apply 1 Application topically to affected area(s) 2 times daily if needed. 09/06/19 25 Active ascorbic acid, vitamin C, (Vitamin C) 500 mg tablet Take 500 mg by mouth once daily. Take with iron supplement Active triamcinolone (ARISTOCORT; KENALOG) 0.1 % creamIndications:R ectal itching Apply topically to affected area(s) three times daily. 80 g 09/17/19 25 Active levothyroxine (SYNTHROID) 75 mcg tabletIndications: Autoimmune hypothyroidism Take 1 Tablet (75 mcg) by mouth before breakfast. 90 Tablet 3 09/17/19 25 Active simethicone (MYLICON DROPS) 20 mg/0.3 mL dropsIndications:A bdominal bloating Take 0.6 mL (40 mg) by mouth 4 times daily if needed for Flatulence. Max dose: 500 mg per 24 hrs 30 mL 10/25/19 25 Active Milk of Magnesia 400 mg/5 mL suspensionIndicati ons:Abdominal bloating Take 15 mL by mouth two times daily. 473 mL 10/25/19 25 Active docusate (COLACE) 100 mg capsuleIndications :Constipation, acute Take 1 Capsule (100 mg) by mouth 2 times daily if needed for Constipation. 180 Capsule 3 10/28/19 25 Active clopidogreL (PLAVIX) 75 mg tabletIndications: Cerebrovascular accident (CVA) due to stenosis of cerebral artery (HC) Take 1 Tablet (75 mg) by mouth once daily in the morning. 90 Tablet 3 11/06/19 25 Active lisinopriL 10 mg tabletIndications: Resistant hypertension Take 1 Tablet (10 mg) by mouth once daily. 90 Tablet 3 11/26/19 25 Active amLODIPine 10 mg tabletIndications: Hypertension Take 1 Tablet (10 mg) by mouth once daily. 90 Tablet 3 12/06/19 25 Active lisinopriL 5 mg tabletIndications: Resistant hypertension Take 1 Tablet (5 mg) by mouth once daily. Take with 10 mg lisinopril 90 Tablet 3 12/10/19 25 Active ketoconazole 2 % creamIndications:T inea corporis Apply topically to affected area(s) two times daily. 60 g 12/25/19 25 Active levETIRAcetam 500 mg tabletIndications: Seizure (HC) TAKE 1 TABLET(500 MG) BY MOUTH TWICE DAILY 180 Tablet 01/29/20 25 Active ferrous gluconate 324 mg (38 mg iron) tabletIndications: Anemia, unspecified type TAKE 1 TABLET BY MOUTH EVERY DAY WITH A MEAL 90 Tablet 3 02/26/20 25 Active fluticasone (50 mcg per actuation) nasal solution (FLONASE)Indicatio ns:Sinusitis, unspecified chronicity, unspecified location Inhale 2 Sprays in both nostrils once daily. 16 g 03/21/20 Active albuterol HFA (PRO-AIR; VENTOLIN; PROVENTIL) 90 mcg/actuation inhalerIndications :Wheezing Inhale 1-2 Puffs by mouth every 4 hours if needed for Shortness Of Breath or Wheezing. 3 Each 3 03/27/20 Active benzonatate (TESSALON) 200 mg capsuleIndications :Cough, unspecified type Take 1 Capsule (200 mg) by mouth 3 times daily if needed for Cough. 21 Capsule 03/27/20 Active doxycycline 100 mg tabletIndications: Sinusitis, unspecified chronicity, unspecified location Take 1 Tablet (100 mg) by mouth two times daily for 5 days. 10 Tablet 03/21/20 25 025 guaiFENesin (MUCINEX) 600 mg Extended-Release tabletIndications: Wheezing,Sinusitis , unspecified chronicity, unspecified location Take 1 Tablet (600 mg) by mouth two times daily for 5 days. 10 Tablet 03/21/20 25 025 Active Problems Problem Noted Date Diagnosed Date Acute on chronic anemia 09/29/2024 Axillary adenopathy 09/29/2024 Portal hypertension 09/17/2024 Anemia 09/12/2024 Seizure 08/28/2024 BRUNO (acute kidney injury) 08/28/2024 Lactate blood increase 08/28/2024 Hyperlipidemia 08/22/2024 TIA (transient ischemic attack) 08/21/2024 Hypertensive chronic kidney disease with stage 1 through stage 4 chronic kidney disease, or unspecified chronic kidney disease 07/08/2024 Left ventricular hypertrophy 07/08/2024 Morbid obesity 07/08/2024 Nicotine dependence, cigaret luis, with unspecified nicotine-induced disorders 07/08/2024 Stage 3b chronic kidney disease 07/08/2024 Type 2 diabetes mellitus with diabetic nephropat hy 07/08/2024 Nicotine dependence 07/08/2024 Cerebrovascular accident 06/04/2024 Personal history of transien t ischemic attack (TIA), and cerebral infarction without residual deficits 06/04/2024 Autoimmune hypothyroidism 09/26/2022 Overview (09/26/2022): Patient seen by endocrinology 09/2021 at [facility]. Diagnosed with Autoimmune hypothyroidism/ Pascual's thyroiditis. Does often forget to take thyroid medication. 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 09/10/2018 Age-related nuclear cataract of both eyes 2017 Tenosynovitis of wrist 12/07/2015 Sciatica, left side 08/18/2015 Dyspepsia 08/18/2015 Restless leg syndrome 08/18/2015 Palpitations 05/06/2015 Body mass index (BMI) 40.0-44.9, adult 4 Overview (12/24/2024): Body Mass Index 40.0-44.9, Adult Abnormal liver function tests 04/03/2013 Psoriasis 04/03/2013 Benign paroxysmal positional vertigo 02/20/2006 Rhinitis, allergic 01/02/2006 Unspecified essential hypertension 11/16/2005 Overview (04/23/2024): [...] Encounters Date Type Department Care Team Description 03/21/2025 1:45 PM CDT Ancillary Procedure [address] [address] 03/21/2025 12:50 PM CDT Office Visit [address] [address] Orlando Concepcion DO URI (Congestion, cough and wheezing x week/03/20 negative COVID-19 test/) 03/21/[address] [address] Orlando Concepcion DO Refill Request (Fluticasone (50 Mcg Per Actuation) Nasal) 03/21/2025 Travel 02/24/[address] [address] Orlando Concepcion DO Refill Request (Ferrous Gluconate) 01/29/[address] [address] Orlando Concepcion DO Refill Request 01/25/[address] [address] Orlando Concepcion DO Refill Request (Levetiracetam) 01/22/2025 3:45 PM CDT Ancillary Procedure [address] [address] 01/22/2025 2:55 PM CDT Office Visit [address] [address] Orlando Concepcion DO Abdominal Pain; Concerns (States she talk to someone at the social security office and he was going to be requesting info on the patient's inability to work, might need office notes stating that she has an off gait and unable to lift, etc. Did have an OT eval yesterday at [facility] ) 01/22/2025 Travel 01/18/2025 Travel 01/13/2025 2:15 PM CDT Ancillary Procedure [facility] [address] [place] [address] 01/13/2025 12:50 PM CDT Office Visit [address] [address] Orlando Concepcion DO Medication Management 01/13/2025 Travel 01/07/2025 1:15 PM CDT Office Visit [address] [place] [address] Philomena Hernandez, ELECTRICIAN RE[employer]IFIER MAINTENANCE Consult 01/07/2025 Travel 01/02/[address] [address] Orlando Concepcion DO Refill Request (Hydralazine) 01/01/2025 1:00 PM CDT Nurse/Clinic Staff Only [address] [address] Infusion Therapy (1st Feraheme infusion) 01/01/[address] [address] Orlando Concepcion DO Medication Reaction (Dizziness and feeling HOT after 4 min. Infused of 1st Feraheme on 01-01-25) 01/01/2025 Travel 12/30/[address] [address] Orlando Concepcion DO Refill Request (Levetiracetam) 12/29/[address] [address] Orlando Concepcion DO Refill Request (Levetiracetam) 12/28/[address] [address] Figueroa Mcclain MD Medication Problem 12/28/2024 Nurse Triage [address] [address] Orlando Concepcion, DO Infection 12/27/2024 12:45 PM CDT Orders Only [facility] [address] [place] [address] Lab, [facility] from Last 3 Months Immunizations Immunization Administration Dates Next Due COVID-19 vaccine (Pfizer-Bio NTech 30mcg/0.3mL) 12YO+ WING-SUCROSE PF, MDV 10/08/2021 COVID-19 vaccine (Pfizer-BioNTech 30mcg/0.3mL) P F, MDV 04/09/2021,03/16/2021 Td (Age >=7 Years) 02/14/2005 Family [...] ne [place] Paternal Grandmother (Age 86) [place], Sister 1 Alive Sister 2 Alive Social History Tobacco Use Types Packs/Day Years Used Date Smoking Tobacco: Every Day Cigarettes 0.3 30 Passive Smoke Exposure: Past Smokeless Tobacco: Never Tobacco Cessation:Ready to Q uit: Not Asked; Counseling Given: Yes Comments:4-5 cigs per day Alcohol Use Standard [...] Sex Assigned at Female 08/31/2024 1:37 PM RN NEONATAL ICU Legal Sex Female 6:39 AM RN NEONATAL ICU Gender Identity Female 08/31/2024 1:37 PM RN NEONATAL ICU Sexual Orientation Straight 08/31/2024 1: 37 PM RN NEONATAL ICU Occupation Industry Job Start Date Job End [...] Sign Reading Time Taken Comments Blood Pressure 163/78 03/21/2025 12:50 PM CDT Pulse 78 03/21/2025 12:50 PM CDT Temperature 36.8 C (98.2 F) 03/21/2025 12:50 PM CDT Respiratory Rate 18 01/07/2025 1:16 PM CDT Oxygen Saturation 99% 03/21/2025 12:50 PM CDT Inhaled Oxygen Concentration - - Weight 92.2 kg (203 lb 4.8 oz) 01/07/2025 1:16 P M CDT Height 149 cm (4' 10.66) 01/07/2025 1:16 PM CDT Body Mass Index 41.54 01/07/2025 1:16 PM CDT Plan of Treatment Upcoming Encounters Date Type Department Care Team (Late st Contact Info) Description 04/15/2025 12:50 PM CDT Office Visit [facility] [address] [place] [address] Orlando Concepcion DO [address] [place] [address] Health Maintenance Due Date Last Done Comments Pneumococcal series for age 50+ (1 of [...] 2024 10/08/2021, 10/08/2021, 04/09/2021, Additional history exists Depression screening for age 12+ 10/13/2024 10/13/2023, 10/13/2023, 10/13/2023, Additional history exists Influenza Vaccine (#1) [address] (for lung CA) age 50-80 09/10/2025 09/10/2024, 11/28/2007 Colonoscopy through age 75 09/13/2025 09/13/2024 BMI (ht and wt on same day) for age 18+ 01/07/2026 01/07/2025, 04/22/2024, 03/15/2024, Additional history exists Lipids for age 45-75 10/13/2029 10/13/2024, 08/22/2024, 06/04/2024, Additional history exists Hepatitis C screening for age 18-79 Completed 05/11/2022 Hepatitis B series for 19+ Aged Out N o longer eligible based on patient's age to complete this topic Goals Goal Patient Goal Type Associated Problems Recent Progress Patient-Stated? Author BLOOD PRESSURE - MAINTAINS BP less than 140/90 Blood Pressure No Joseph Villafuerte MD Procedures Procedure Name Priority Date/Time Associated Diagnosis Comments XR CHEST 2 VIEWS PA AND LATERAL Routine 03/21/2025 1:54 PM CDT Wheezing HEMOGLOBIN Routine 01/22/2025 3:56 PM CDT Abdominal pain, epigastric LIPASE Routine 01/22/2025 3:56 PM CDT Abdominal pain, epigastric HEPATIC FUNCTION PANEL Routine 01/22/2025 3:56 PM CDT Abdominal pain, epigastric GLUCOSE, RANDOM Routine 01/22/2025 3:56 PM CDT Abdominal pain, epigastric Other malaise URINE CULTURE Routine 01/22/2025 3:55 PM CDT Dysuria Abdominal pain, epigastric URINALYSIS MICROSCOPIC Routine 01/22/2025 3:55 PM CDT Dysuria Abdominal pain, epigastric XR ABDOMEN 1 VIEW Routine 01/22/2025 3:4 8 PM CDT Abdominal pain, epigastric XR FINGER 3 VIEWS LEFT Routine 01/13/2025 2:15 PM CDT Injury of finger of left hand, initial encounter CREATININE Routine 12/27/2024 12:48 PM CDT Stage 3b chronic kidney disease (HC) HEMOGLOBIN Routine 12/27/2024 12:48 PM CDT Anemia of unknown etiology LIPID PANEL W REFLEX MEASURED LDL Today 10/13/2024 4:05 PM RN NEONATAL ICU TIA (transient ischemic attack) COLONOSCOPY 09/13/2024 7:15 AM RN NEONATAL ICU CT CHEST ABDOMEN PELVIS WO STAT 09/10/2024 7:40 PM RN NEONATAL ICU ANTI HCV Routine 05/11/2022 11:13 AM CDT Cellulitis of skin XR MAMMO BILAT DIAG FFDM (IA) Routine 12/05/2007 9:36 AM CDT Enlargement Of Lymph Nodes from Last 3 Months or Most Recently Relevant to Health Maintenance Results * XR CHEST 2 VIEWS PA AND LATERAL (03/21/2025 1:54 PM CDT) Anatomical Region Laterality Modality CHEST, THORAX, Lung, HEART Compu murali Radiography 03/21/2025 3:01 PM CDT Impressions 03/21/2025 3:01 PM CDT No acute findings. Dictated by Carloz Arroyo MD @ 03/21/2025 3:01:53 PM (Electronically Signed) Narrative 03/21/2025 3:01 PM CDT For Patients: As a result of the Cures Act, medical imaging exams and procedure reports are released immediately into your electronic medical record. You may view this report before your referring provider. If you have questions, please contact your health care provider. INDICATION: Wheezing TECHNIQUE: Chest 2 views COMPARISON: 08/28/2024 FINDINGS: Cardiomegaly. Atherosclerotic disease. Degenerative disc disease. Clear lungs. Procedure Note Carloz Arroyo MD - 03/21/2025 For Patients: As a result of the Cures Act, medical imagingexams and procedure reports are released immediately into your electronicmedical record. You may view this report before your referring provider.If you have questions, please contact your health care provider. INDICATION: Wheezing TECHNIQUE: Chest 2 views COMPARISON: 08/28/2024 FINDINGS: Cardiomegaly. Atherosclerotic disease. Degenerative disc disease. Clearlungs. IMPRESSION: No acute findings. Dictated by Carloz Arroyo MD @ 03/21/2025 3:01:53 PM (Electronically Signed) us Adei Shaqra DO GENERAL IMAGING Final Result * GLUCOSE, RANDOM (01/22/2025 3:56 PM CDT) GLUCOSE, RANDOM 119 <140 mg/dL [facility] Blood BLOOD SPECIMEN / Unknown 01/22/2025 3:56 PM CDT 01/22/2025 3:56 PM CDT Adei Latrellqra DO CHEMISTRY Final Result [facility] [address] [place] [address], [place] [phone] [facility] [address] [place] [address] * HEMOGLOBIN (01/22/2025 3:56 PM CDT) Only the most recent of2 resultswithin the time period is included. Pathologist [facility] HEMOGLOBIN 13.2 11.7 - 15.5 g/dL [facility] emily Greg Blood BLOOD SPECIMEN / Unknown 01/22/2025 3:56 PM CDT 01/22/2025 3:56 PM CDT [facility] DO HEMATOLOGY Final Result Performing Organization Address [facility] de Phone Number [facility] [address] [place] [address], [place] [phone] [facility] [address] [place] [address] * LIPASE (01/22/2025 3:56 PM CDT) [facility] LIPASE 29 7 - 60 U/L [facility] Garza Blood BLOOD SPECIMEN / Unknown 01/22/2025 3:56 PM CDT 01/22/2025 3:56 PM CDT Adei Shaqra DO CHEMISTRY Final Result Performing Organization Address [facility] Co de Phone Number [facility] [address] [place] [address], [place] [phone] [facility] [address] [place] [address] * HEPATIC FUNCTION PANEL (01/22/2025 3:56 PM CDT) Pathologist [facility] PROTEIN, TOTAL 7.0 6.1 - 8.1 g/dL [facility] ALBUMIN 4.0 3.6 - 5.1 g/dL [facility] GLOBULIN 3.0 1.9 - 3.7 g/dL (calc) [facility] ALBUMIN/GLOBULIN RATIO 1.3 1.0 - 2.5 (calc) [facility] BILIRUBIN, TOTAL 0.2 0.2 - 1.2 mg/dL [facility] BILIRUBIN, DIRECT 0.0 < OR = 0.2 mg/dL [facility] BILIRUBIN, INDIRECT 0.2 0.2 - 1.2 mg/dL (calc) [facility] ALKALINE PHOSPHATASE 133 37 - 153 U/L [facility] AST 10 10 - 35 U/L [facility] ALT 10 6 - 29 U/L [facility] Blood BLOOD SPECIMEN / Unknown 01/22/2025 3:56 PM CDT 01/22/2025 3:56 PM CDT us Orlando Concepcion DO CHEMISTRY Final Result [facility] [address] [place] [address], [facility] [address] [place] [address] * (ABNORMAL) URINALYSIS MICROSCOPIC (01/22/2025 3:55 PM CDT) RBC 0-2 0-2, None Seen /HPF 01/23/2025 1:15 AM CDT [facility] WBC 11-25(A) 0-2, 3-5, None Seen /HPF 01/23/2025 1:15 AM CDT [facility] BACTERIA None Seen None Seen, Rare, Few Bacteria/ HPF 01/23/2025 1:15 AM CDT [facility] EPITHELIAL CELLS None Seen None Seen, Few Epi/HPF 01/23/2025 1:15 AM CDT [facility] HYALINE CASTS 0-2 0-2, 3-5 /LPF 01/23/2025 1:15 AM CDT [facility] Urine URINE SPECIMEN / Unknown Non-Blood / Unknown 01/22/2025 3:55 PM CDT 01/22/2025 4:14 PM CDT us Adei Latrellqra DO URINE Final Result Performing Organization Address [facility]/ZIP Co de Phone Number [facility] [address] [address], [place] * URINE CULTURE (01/22/2025 3:55 PM CDT) CULTURE <10,000 CFU/mL multiple organisms 01/24/2025 12:16 PM CDT [facility] Urine URINE SPECIMEN / Unknown Non-Blood / Unknown 01/22/2025 3:55 PM CDT 01/22/2025 4:14 PM CDT us Orlando Concepcion DO MICROBIOLOGY Final Result Performing Organization Address [facility] Co de Phone Number [facility] [address] [place] [address], [place] * XR ABDOMEN 1 VIEW (01/22/2025 3:48 PM CDT) Anatomical Region Laterality Modality Abdomen Computed Radiogr aphy 01/22/2025 3:56 PM CDT Narrative 01/22/2025 3:56 PM CDT For Patients: As a result of the Cures Act, medical imaging exams and procedure reports are released immediately into your electronic medical record. You may view this report before your referring provider. If you have questions, please contact your health care provider. Indication: Abdominal pain, epigastric Technique: Abdomen 1 view. Comparison: None. Findings: Bowel: Bowel pattern is normal. The amount of colonic stool is increased. Other: No sign of free air. No sign of soft tissue mass. No suspicious calcifications. Gallbladder is absent. Degenerative changes. Impression: Constipation. Dictated by Carloz Arroyo MD @ 01/22/2025 3:56:54 PM (Electronically Signed) Procedure Note Carloz Arroyo MD - 01/22/2025 For Patients: As a result of the s Act, medical imagingexams and procedure reports are released immediately into your electronicmedical record. You may view this report before your referring provider.If you have questions, please contact your health care provider. Indication: Abdominal pain, epigastric Technique: Abdomen 1 view. Comparison: None. Findings: Bowel: Bowel pattern is normal. The amount of colonic stool isincreased. Other: No sign of free air. No sign of soft tissue mass. No suspiciouscalcifications. Gallbladder is absent. Degenerative changes. Impression: Constipation. Dictated by Carloz Arroyo MD @ 01/22/2025 3:56:54 PM (Electronically Signed) Lindseydariel Concepcion DO GENERAL IMAGING Final Result * XR FINGER 3 VIEWS LEFT (01/13/2025 2:15 PM CDT) Anatomical Region Laterality Modality Finger Computed Radiogr aphy 01/13/2025 2:29 PM CDT Narrative 01/13/2025 2:29 PM CDT For Patients: As a result of the s Act, medical imaging exams and procedure reports are released immediately into your electronic medical record. You may view this report before your referring provider. If you have questions, please contact your health care provider. Indication: Injury, pain Technique: Three views left middle finger Comparison: 01/12/2021 Findings: Narrowing and spurring at the interphalangeal joints. Similar alignment of the left little finger compared to the prior study. No acute fracture. Impression: No sign of acute injury. Dictated by Carloz Arroyo MD @ 01/13/2025 2:29:36 PM (Electronically Signed) Procedure Note Carloz Arroyo MD - 01/13/2025 For Patients: As a result of the s Act, medical imagingexams and procedure reports are released immediately into your electronicmedical record. You may view this report before your referring provider.If you have questions, please contact your health care provider. Indication: Injury, pain Technique: Three views left middle finger Comparison: 01/12/2021 Findings: Narrowing and spurring at the interphalangeal joints. Similar alignment ofthe left little finger compared to the prior study. No acute fracture. Impression: No sign of acute injury. Dictated by Carloz Arroyo MD @ 01/13/2025 2:29:36 PM (Electronically Signed) [facility] DO GENERAL IMAGING Final Result * (ABNORMAL) CREATININE (12/27/2024 12:48 PM CDT) CREATININE 1.31(H) 0.50 - 1.05 mg/dL [facility] EGFR 45(L) > OR = 60 mL/min/1.73 m2 [facility] Blood BLOOD SPECIMEN / Unknown 12/27/2024 12:48 PM CDT 12/27/2024 12:48 PM CDT [facility] CHEMISTRY Final Result [facility] [address] [place] [address], [facility] [address] * (ABNORMAL) LIPID PANEL W REFLEX MEASURED LDL (10/13/2024 4:05 PM RN NEONATAL ICU) CHOLESTEROL,TOTAL 114 100 - 199 mg/dL 10/18/2024 2:25 PM [facility] Comment: Cholesterol, Total Reference Ranges Desirable <200 mg/dL Borderline 200-239 mg/dL High >=240 mg/dL TRIGLYCERIDES 186(H) <150 mg/dL 10/18/2024 2:25 PM [facility] HDL CHOLESTEROL 33(L) >40 mg/dL 2:25 PM [facility] NON-HDL CHOLESTEROL 81 <145 mg/dl 10/18/2024 2:25 PM [facility] CHOL/HDL RATIO 3.45 <4.50 10/18/2024 2:25 PM [facility] LDL CHOLESTEROL 44 <=130 mg/dL 10/18/2024 2:25 PM RN NEONATAL ICU [facility] VLDL CHOLESTEROL 37(H) <=30 mg/dL 10/18/2024 2:25 PM RN NEONATAL ICU [facility] PROVIDER ORDERED STATUS NOT GIVEN 10/18/2024 2:25 PM RN NEONATAL ICU [facility] Blood BLOOD SPECIMEN / Unknown Venipuncture / Unknown 10/13/2024 4:05 PM RN NEONATAL ICU 10/13/2024 4:07 PM RN NEONATAL ICU us Adei Latrellisidro DO CHEMISTRY Final Result [facility] [address] [place] [address] * COLONOSCOPY (09/13/2024 7:15 AM RN NEONATAL ICU) 09/13/2024 7:15 AM RN NEONATAL ICU Narrative Transcriptions Ernie Shetty MD - 09/13/2024 8:19 AM [facility] Patient Name: Aurea Hauser Procedure Date: 09/13/2024 Gender: Female Date of [...] adequate candidate for conscious sedation. The endoscope [id number] was passed through the anus and advanced [...] MD PROCEDURE ORD Final Res ult * CT CHEST ABDOMEN PELVIS WO (09/10/2024 7:40 PM RN NEONATAL ICU) Anatomical Region Laterality Modality Abdomen, Pelvis, AORTA, LIVER, SPLEEN, CHEST Computed Tomography 09/10/2024 7:53 PM RN NEONATAL ICU Impressions 09/10/2024 7:53 PM RN NEONATAL ICU 1. Right axillary adenopathy seen with lymph [...] 19:53:09 (Electronically Signed) Narrative 09/10/2024 7:53 PM RN NEONATAL ICU For Patients: As a result of the [...] Mehul SNYDER CT Final Re sult * ANTI HCV (05/11/2022 11:13 AM CDT) [facility] HEPATITIS C ANTIBODY Non-React ebony Non-React ebony 05/12/2022 1:53 AM CDT [facility] Comment:Antibodies to HCV no t detected; does not exclude the possibility of exposure to HCV. Blood BLOOD SPECIMEN / Unknown Venipuncture / Unknown 05/11/2022 11:13 AM CDT 05/11/2022 11:15 AM CDT Stacy Trevizo MD SEND OUTS Fin al Result [facility] [address] [place] [address], [place] * XR MAMMO BILAT DIAG FFDM (12/05/2007 9:36 AM CDT) Pathologist [facility] MAMMOGRAM ACR 1 Negative Anatomical Region Laterality [...] Insurance MEDICAID MEDICARE PART A HB ONLY [facility] MR [facility] [place] Advance Directives Documents on File Type Date Recorded Patient Mortgage Assistant Expl anation Healthcare Directive 06/06/2024 024 * [...] Code Status Discussion: Reviewed Preferences Care Teams Fire Crew Specialist Relationship Specialty Start Date End Date Orlando Concepcion DO [address] [place] [address] PCP - General Family Practice 06/11/24 Karissa Childs MD [address] Heather N [facility] [address] [place] [address] Rheumatology Rheumatology 01/19/16 Giovanna Diez, Jose DD [address] [place] [address] Heather [facility] [place] [address] Pharmacist Medication Management Pharmacology 06/26/24 06/26/27
--- OUTSIDE RECORDS SUMMARY | 2025-03-28 09:25 | XMS_ITS | Clinical Summary ---
Author Organization [facility] Address [address] [place] [address] Care Team Providers Care Wet Process Operator Name Role Phone None Reported, Pcp Primary Care Provider Unavail able Source Comments Patient records contain information from all sites at [facility]. For routine questions regarding patient records, call [phone] during business hours, M-F 8:00 AM - 5:00 PM Central Time. Record requests for emergency care only can be directed to [phone] at any time.[facility] Allergies Active Allergy Reactions Criticality Noted Date Comments Atenolol Shortness of breath (Reselect Reaction) 02/05/2016 Azithromycin Shortness of breath (Reselect Reaction) 02/20/2006 Chlorthalidone Other (see comments) 02/09/2016 Sweating and numb legs Ciprofloxacin Tinnitus 11/04/2015 Clindamycin Diarrhea,Other (see comments) 07/07/2020 Diatrizoate Meglumine Vancomycin Infusio n Reaction 11/16/2005 Doxycycline Nausea And Vomiting 11/11/2014 Erythromycin Shortness of breath (Reselect Reaction) 11/16/2005 Lisinopril Other (see comments) 07/14/2011 Red dye in generic brands causes rash and sweating White colored generic brands cause shaking headache and tachycardia Metoprolol Other (see comments) 07/04/2006 Rash, depression abd cramping Morphine Other (see comments) 01/04/2009 Patient can't remember reaction. ? Remembers waking up and hearing no more of that for you. Prednisone GI intolerance Low 11/16/2005 Sulfa (Sulfonamide Antibiotics) Rash 07/04/2006 Medications * This document contains information received from the source organization and may not represent a complete record from that organization. albuterol (PROVENTIL HFA,VENTOLIN HFA) 90 mcg/actuation inhaler Inhale 2 puffs every 4 (four) hours as needed for wheezing or shortness of breath. 12/30/19 17 Active blood pressure test kit-large kit As directed. 07/10/20 14 Active blood sugar diagnostic, drum strip As directed. Dispense item covered by pt ins. E10.65 IDDM type I, uncontrolled - Test 3 times/day. 03/02/20 17 Active timolol (TIMOPTIC) 0.5 % ophthalmic solution Administer 1 drop into both eyes daily. 10 mL 5 01/09/20 19 Active ondansetron (ZOFRAN) 4 mg tablet 12/03/19 21 Active fluticasone propionate (FLONASE) 50 mcg/actuation nasal spray Administer 2 sprays into nostril(s). 09/06/19 21 Active alcohol swabs pads, medicated 03/06/20 18 Active lancets (Ultra Thin Lancets) 31 gauge misc 03/06/20 18 Active Accu-Chek Guide test strips Dispense item covered by pt ins. E11.9 IDDM type II - Test 3 times/day. 07/29/20 24 Active atorvastatin (Lipitor) 80 mg tablet Take 40 mg by mouth daily. 07/05/20 24 Active brimonidine (Alphagan) 0.2 % ophthalmic solution Administer 2 drops into affected eye(s). 02/06/20 24 Active famotidine (Pepcid) 40 mg tablet Take 40 mg by mouth at bedtime as needed. 05/14/20 24 Active levETIRAcetam (Keppra) 500 mg tablet Take 500 mg by mouth 2 (two) times a day. 09/05/19 25 Active loperamide (Imodium A-D) 2 mg tablet 1 every 4 hrs as needed diarrhea 06/14/20 24 Active meclizine (Antivert) 25 mg tablet Take 25 mg by mouth 3 (three) times a day as needed. 06/27/20 24 Active nystatin (Nystop) 100,000 unit/gram powder Apply topically 2 (two) times a day. 06/07/20 24 Active ondansetron ODT (Zofran-ODT) 4 mg disintegrating tablet Dissolve 4 mg in the mouth every 8 (eight) hours as needed. 07/09/20 Active pioglitazone (Actos) 45 mg tablet Take 45 mg by mouth. 07/18/20 Active levothyroxine 75 mcg tablet Take 75 mcg by mouth. 09/17/19 Active Senna-S 8.6-50 mg per tablet Take 1 tablet by mouth daily. 10/29/19 Active magnesium hydroxide (Milk of Magnesia) 400 mg/5 mL suspension Take 15 mL by mouth as needed. 10/25/19 Active ferrous sulfate 325 mg (65 mg iron) DR tablet 09/09/19 Active clopidogreL (Plavix) 75 mg tablet Take 75 mg by mouth. 11/06/19 25 Active ascorbic acid, vitamin C, (Vitamin C) 500 mg tablet Take 500 mg by mouth. Active amLODIPine (Norvasc) 10 mg tablet 11/01/19 Active simethicone 40 mg/0.6 mL drops Take 40 mg by mouth 4 (four) times a day as needed. 10/25/19 Active triamcinolone (Kenalog) 0.1 % cream Apply topically. 09/17/19 Active labetaloL 100 mg tablet Take 1 tablet (100 mg total) by mouth 2 (two) times a day. 11/15/19 25 Active clobetasoL (Temovate) 0.05 % cream APPLY TOPICALLY TWICE DAILY NEEDED TO THICK PLAQUES 60 g 3 12/04/19 Active Active Problems Problem Noted Date Diagnosed Date Anemia 09/12/2024 Seizure 08/28/2024 Diabetes Mellitus Type 2 With Diabetic Nephropat hy 07/08/2024 Assessment & Plan (11/16/2024 11:29 AM CDT): Currently managed with pioglitazone. Hemoglobin A1C last checked Aug 2024 although may be inaccurate in the setting of anemia. Hypertensive Chronic Kidney Disease With Stage 1 Through Stage 4 Chronic Kidney Disease, Or Unspecified Chronic Kidney Disease 07/08/2024 Assessment & Plan (11/16/2024 11:29 AM CDT): Blood pressure slightly elevated in clinic today, did not discuss in detail. We will need to clarify hypertension regimen at our follow up visit. My understanding is she is no longer taking hydralazine and lisinopril but is taking amlodipine and labetalol (new prescription at previous PCP office last week). Chronic Kidney Disease (CKD) , Stage 3b Glomerular Filtration Rate (GFR) 30 To 44 07/08/2024 Nicotine Dependence Cigarett e With Nicotine Induced Disorder 07/08/2024 Stroke Cerebrovascular Accident Personal History 06/04/2024 Cataract Senile Mature 09/10/2018 Age Related Nuclear Cataract Right Eye 9 Uveitis Chronic Bilateral 09/10/2018 Glaucoma Suspect Ocular Hypertension Bilateral 0 09/10/2018 Keratopathy Band Bilateral 09/10/2018 Restless Leg Syndrome 08/18/2015 Sciatica Left 08/18/2015 Body Mass Index 40.0 To 44.9 Adult 01/30/2014 Overview (01/24/2017): Body Mass Index 40.0-44.9, Adult Assessment & Plan (11/16/2024 11:29 AM CDT): BMI is elevated. We will plan to review this in greater detail at a future visit. Psoriasis 04/03/2013 Overview (12/03/2024): Clobetasol cream as needed Vertigo Benign Paroxysmal Positional Right 02/20 Rhinitis Allergic 01/02/2006 Hirsutism 11/16/2005 Resolved Problems Problem Noted Date Diagnosed Date Resolved Date Hypertension Portal 09/17/2024 11/17/19 25 Other Symptoms And Signs Inv olving Cognitive Functions And Awareness 06/07/2024 11/16/2024 Other Specified Abnormal Fin dings Of Blood Chemistry 04/03/2013 11/16/2024 Hypertension 05/18/2012 09/06/2024 Overview (01/24/2017): HTN [Hypertension] Encounters Date Type Department Care Team Description 02/27/2025 Clinical Communication [facility] in [place], [place] [address] [place] [id number] Cora Lindsey MPAS, P.A.-C. 01/01/2025 Clinical Communication [facility] [place], [place] [address] [place] [id number] Cora Lindsey MPAS, P.A.-C. Health Maintenance from Last 3 Months Immunizations Immunization Administration Dates Next Due Td (Adult), adsorbed 02/14/2005 Family History Medical History Relation Name Comments Hypertension Brother 1 Hypertension Brother 2 [place]egan [place] Hypertension Brother 3 Hypertension Brother 4 [place]egan [place] Coronary artery disease Father 1 Michael Hill Coronary artery disease Father 2 Michael Hill Hypertension Sister 1 Hypothyroidism Sister 1 Psoriasis Sister 1 Hypertension Sister 2 Gela Stephen Hypertension Sister 3 Hypothyroidism Sister 3 Psoriasis Sister 3 Hypertension Sister 4 Gela Stephen Relation Name Status Comments Brother 1 Brother 2 Keegan Museus Brother 3 Alive Brother 4 Keegan Museus Alive Father 1 Michael Museus Father 2 Michael Balwinderus Alive Sister 1 Sister 2 Gela Hailee Sister 3 Alive Sister 4 Gela Stephen Alive Social History Tobacco Use Types Packs/Day Years Used Date Smoking Tobacco: Some Days Cigarettes Smokeless Tobacco: Never Tobacco Cessation:Counseling Given: Yes Alcohol Use Standard Drinks/Week Comments No 0 (1 standard drink = 0.6 oz pur e alcohol) [facility] Utilities Answer Date Recorded In the past 12 months has e [employer], gas, oil, or water [employer] threatened to shut off services in your [...] your living situation today? I have a [facility] place to live 11/07/2024 Comments No Sex and Gender Information Value Date Recorded Sex Assigned at Female 11/07/2024 8:42 AM COMBINING MACHINE OPERATOR Legal Sex Female 4:23 PM COMBINING MACHINE OPERATOR Gender Identity Female 11/07/2024 8:42 AM COMBINING MACHINE OPERATOR Sexual Orientation Straight 11/07/2024 8: 42 AM COMBINING MACHINE OPERATOR Last Filed Vital Signs Vital Sign Reading Time Taken Comments Blood Pressure 138/58 01/22/2025 3:19 PM CDT BP taken at PCP appt at [facility] Pulse 89 11/14/2024 2:41 PM CDT Temperature 36.2 C (97.2 F) 11/14/2024 2:36 PM CDT Respiratory Rate 16 11/14/2024 2:36 PM CDT Oxygen Saturation 94% 12/12/2018 10: 40 AM CDT Inhaled Oxygen Concentration - - Weight 92 kg (202 lb 13.2 oz) 11/14/2024 2:36 PM CDT Height 149 cm (4' 10.66) 11/14/2024 2: 36 PM CDT Body Mass Index 41.44 11/14/2024 2:36 PM CDT Plan of Treatment Health Maintenance Due Date Last Done Comments Bone Density Scan (Osteoporosis Screen) 1958 CT Colonography 1958 Cologuard 1958 Diabetic Office Visit with Foot Exam 1958 FIT 1958 Mammogram 1958 Urine Albumin 1958 Pneumococcal vaccine (50+ years) (1 of 2 - PCV) 1977 DTaP,Tdap,and Td Vaccines (1 - Tdap) 02/15/2005 02/14/2005 Zoster Vaccines (1 of 2) 2008 Hepatitis B Vaccines (1 of 3 - Risk 3-dose series) 2018 RSV vaccine - (32-36 weeks) or 60+ years (1 - Risk 60-74 years 1-dose series) 2018 Dilated Eye Exam 11/16/2019 11/15/2018, , 11/15/2018, Additional history exists COVID-19 Vaccine ( season) 2024 10/08/2021, 04/09/2021, 03/16/2021 Influenza Vaccine (#1) 2025 Hemoglobin A1C 06/25/2025 12/24/2024, 12/1 05/2024, 06/04/2024, Additional history exists Thyroid Stimulating Hormone (TSH) test for thyroid function 09/29/2025 09/29/2024, 09/06/2024, 06/05/2024, Additional history exists Creatinine Level (Kidney Function Test) 10/21/2025 10/21/2024, 10/13/2024, 10/08/2024, Additional history exists Tobacco Cessation counseling 11/14/2025 11/14/2024 Office Visit for Blood Pressure Check / Re-check 01/22/2026 01/22/2025 Lipid (Cholesterol) Screening 10/13/2029 10/13/2024, 08/22/2024, 06/04/2024, Additional history exists Colonoscopy 09/13/2034 09/13/2024 Colorectal Cancer Screening 09/13/2034 Cervical/Vaginal Cancer Screening Discontinued 06/15/2016 Depression Screening (Annual PHQ-2) Completed 09/06/2024, 09/06/2024 Fall Risk Screen (Annual) Completed 09/06/2024 HPV Vaccines Aged Out No longer eligi ble based on patient's age to complete this topic IPV Vaccines Aged Out No longer eligi ble based on patient's age to complete this topic Medical Devices Implanted Type Area Anodizer Device Identifier Shelf Expiration Date Model / Serial / Lot Lens Acr Sa60at Ant +23.0d - [id number] - [id number] Implanted:Qty : 1 on 12/12/2018 by Doug Graham M.D. at [facility] Ocular Lens Right: Eye Amaury Trendmeon 08/03/2023 [id number] / [id number] / Procedures Procedure Name Priority Date/Time Associated Diagnosis Comments THYROID-STIMULATING HORMONE-SENSITIVE (S-TSH) Routine 09/06/2024 11:11 AM COMBINING MACHINE OPERATOR Autoimmune Thyroid Disease BASIC METABOLIC PANEL, S/P Routine 09/06/2024 11:11 AM COMBINING MACHINE OPERATOR Failure Renal Acute (Acute Kidney Injury) (HCC) OPHTHALMOLOGY IMAGE EXAM Routine 11/15/2018 9:40 AM CDT from Last 3 Months or Most Recently Relevant to Health Maintenance Results * (ABNORMAL) S-TSH (Thyroid-Stimulating Hormone - Sensitive) (09/06/2024 11:11 AM COMBINING MACHINE OPERATOR) TSH, Sensitive 11.3(H) 0.3 - 4.2 mIU/L 09/06/2024 1:35 PM COMBINING MACHINE OPERATOR OWAT Blood (Blood, Venous) 09/06/2024 11:11 AM COMBINING MACHINE OPERATOR 09/06/2024 12:42 PM COMBINING MACHINE OPERATOR us Mary Raymundo P.A.-C. LAB BLOOD ADD-ON Final Resu lt [facility] [address] [place] [address], [facility] OWAT [facility] [place] [address] [place] [address] * (ABNORMAL) Basic Metabolic Panel (09/06/2024 11:11 AM COMBINING MACHINE OPERATOR) Potassium, P 4.5 3.6 - 5.2 mmol/L 09/06/2024 1:36 PM COMBINING MACHINE OPERATOR OWAT Sodium, P 135 135 - 145 mmol/L 09/06/2024 1:36 PM COMBINING MACHINE OPERATOR OWAT Chloride, P 100 98 - 107 mmol/L 09/06/2024 1:36 PM COMBINING MACHINE OPERATOR OWAT Bicarbonate, P 25 22 - 29 mmol/L 09/06/2024 1:36 PM COMBINING MACHINE OPERATOR OWAT Anion Gap, P 10 7 - 15 09/06/2024 1:36 PM COMBINING MACHINE OPERATOR OWAT BUN (Blood Urea Nitrogen), P 29(H) 6 - 21 mg/dL 09/06/2024 1:36 PM COMBINING MACHINE OPERATOR OWAT Creatinine 1.53(H) 0.59 - 1.04 mg/dL 09/06/2024 1:36 PM COMBINING MACHINE OPERATOR OWAT Estimated GFR (eGFR) 37(L) >=60 mL/min/BSA 09/06/2024 1:36 PM COMBINING MACHINE OPERATOR OWAT Comment: Estimated GFR calculated using the 2020 CKD_EPI creatinine equation. Calcium, Total, P 9.7 8.8 - 10.2 mg/dL 09/06/2024 1:36 PM COMBINING MACHINE OPERATOR OWAT Glucose, P 221(H) 70 - 140 mg/dL 09/06/2024 1:36 PM COMBINING MACHINE OPERATOR OWAT Blood (Blood, Venous) 09/06/2024 11:11 AM COMBINING MACHINE OPERATOR 09/06/2024 12:42 PM COMBINING MACHINE OPERATOR us Mary Raymundo P.A.-C. LAB BLOOD ADD-ON Final Resu lt [facility] [address] [place] [address], [place] OWAT [facility] [place] [address] [place] [address] * Eyes [facility] Image Exam (11/15/2018 9:40 AM CDT) 11/15/2018 12:0 0 PM CDT Narrative I[facility] - 11/15/2018 9:40 AM CDT This order has been created and auto-finalized to support the import of images acquired without order. The clinical documentation to support these images can be found on the encounter that produced images. us Provider Not In System IMG NON RAD IMAGING PROCE DURES Final Result [facility] NA from Last 3 Months or Most Recently Relevant to Health Maintenance Insurance [facility] Care Teams Wet Process Operator Relationship Specialty Start Date End Date None Reported, Pcp PCP - General Family Medicine 02/27/25
--- OUTSIDE RECORDS SUMMARY | 2025-03-28 09:25 | XMS_ITS | Clinical Summary ---
Author Organization [facility] Address [address] [place] [address] Phone Care Team Providers Care Road Supervisor Name Role Phone Orlando Concepcion DO Primary Care Provider [phone] Allergies Active Allergy Reactions Criticality Noted Date Comments Atenolol Shortness of breath High 02/05/2016 Azithromycin Shortness of breath High 02/20/2006 Chlorthalidone Other (see comments) 02/09/2016 Sweating and numb legs Ciprofloxacin Tinnitus 11/04/2015 Clindamycin Diarrhea,GI intolerance 07/07/2020 Diatrizoate 11/16/2005 Erythromycin Shortness of breath High 11/16/2005 Lisinopril Other (see comments) 07/14/2011 Red dye in generic brands causes rash and sweating White colored generic brands cause shaking headache and tachycardia Metformin Other (see comments) 05/01/2024 Abdominal pain Metoprolol Other (see comments) 07/04/2006 Rash, depression abd cramping Morphine 01/04/2009 Patient can't remember reaction. ? Remembers waking up and hearing no more of that for you. Omeprazole Nausea 03/26/2021 Prednisone Other (see comments) Low 11/16/2005 Sulfa Antibiotics 07/04/2006 Medications atorvastatin (LIPITOR) 80 MG tablet Take 80 mg by mouth in the morning. 4 Active clopidogrel (PLAVIX) 75 MG tablet Take 75 mg by mouth in the morning. 4 Active famotidine (PEPCID) 40 MG tablet Take 40 mg by mouth 1 (one) time each day 4 Active hydrALAZINE 50 MG tablet Take 50 mg by mouth in the morning and 50 mg in the evening. 4 Active hydrOXYzine (VISTARIL) 25 MG capsule Take 25 mg by mouth every 6 (six) hours if needed 4 Active levothyroxine (SYNTHROID, LEVOTHROID) 75 MCG tablet Take 75 mcg by mouth in the morning. 4 Active lisinopril-hydr oCHLOROthiazide (PRINZIDE,ZESTO RETIC) 20-25 MG per tablet Take 2 tablets by mouth 1 (one) time each day Active loperamide (IMODIUM) 2 MG capsule TAKE 1 CAPSULE BY MOUTH EVERY 4 HOURS NEEDED FOR DIARRHEA 4 Active meclizine (ANTIVERT) 25 MG tablet Take 25 mg by mouth 3 (three) times a day if needed 4 Active metFORMIN XR (GLUCOPHAGE-XR) 500 MG 24 hr tablet Take 1,000 mg by mouth in the morning. 4 Active nystatin (MYCOSTATIN) powder Apply topically twice a day 4 Active pantoprazole (PROTONIX) 20 MG EC tablet Take 20 mg by mouth in the morning. 4 Active pioglitazone (ACTOS) 15 MG tablet Take 30 mg by mouth in the morning. 4 Active spironolactone (ALDACTONE) 25 MG tablet Take 25 mg by mouth in the morning. 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 Diagnosed with Autoimmune hypothyroidism/ Pascual's thyroiditis. Does often forget to take thyroid medication. Acute nontraumatic kidney injury 05/16/2022 Diabetic skin disorder 05/16/2022 Overview (07/08/2024): Hemoglobin hemoglobin a1c 10. 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 09/10/2018 Bilateral age-related nuclear cataracts 03/13/20 18 Dyspepsia 08/18/2015 Restless leg syndrome 08/18/2015 Sciatica of left side 08/18/2015 Body mass index (BMI) 40.0-44.9, adult 4 Psoriasis 04/03/2013 Benign paroxysmal positional vertigo 02/20/2006 Essential hypertension 11/16/2005 Overview (07/08/2024): Patient states can't take beta esteban nor water pill Hirsutism 11/16/2005 Immunizations Immunization Administration Dates Next Due Pfizer SARS-COV-2 10/08/2021,04/09/2021,03/16/20 21 Family History Medical History Relation Comments Diabetes Brother Diabetes Father Heart disease Father No Known Problems Maternal Grandmother Alzheimer's disease Mother Hypertension Mother Cancer Paternal Grandfather Stroke Paternal Grandmother Diabetes Sister Relation Status Comments Brother Alive Father Alive Maternal Grandfather Maternal Grandmother Alive Mother Paternal Grandfather Paternal Grandmother Sister Alive Social History Tobacco Use Types Packs/Day Years Used Date Smoking Tobacco: Every Day Cigarettes 0.5 31.6 Started: 1993 Passive Smoke Exposure: Past Smokeless Tobacco: Never Tobacco Cessation:Ready to Q uit: Not Asked; Counseling Given: Not Answered Alcohol Use Standard Drinks/Week Comments Not Currently 0 (1 standard drink = 0.6 oz pur e alcohol) Comments Unknown Sex and Gender Information Value Date Recorded Sex Assigned at Not on file Legal Sex Female 12:40 PM EDT Gender Identity Not on file Sexual Orientation Not on file Last Filed Vital Signs Vital Sign Reading Time Taken Comments Blood Pressure 121/60 07/08/2024 8:58 AM HARBOR PILOT Pulse 73 07/08/2024 8:58 AM HARBOR PILOT Temperature - - Respiratory Rate - - Oxygen Saturation - - Inhaled Oxygen Concentration - - Weight 89.8 kg (198 lb) 07/08/2024 8:58 AM HARBOR PILOT Height 149.9 cm (4' 11) 07/08/2024 8:58 AM HARBOR PILOT Body Mass Index 39.99 07/08/2024 8:58 AM HARBOR PILOT Plan of Treatment Health Maintenance Due Date Last Done Comments Breast Cancer Screening 1960 Pneumococcal Vaccine: 50+ Years (1 of 2 - PCV) 1977 Colorectal Cancer Screening: Annual FOBT 2007 Colorectal Cancer Screening: Colonoscopy 2007 Colorectal Cancer Screening: Sigmoidoscopy 2007 Diabetes: Ophthalmology Exam 06/24/2024 Diabetes: Pedal Pulse Checked 06/24/2024 Diabetes: Sensory Foot Exam 06/24/2024 Diabetes: Visual Foot Exam 06/24/2024 Diabetes: Hemoglobin A1C 03/25/2025 025, 08/22/2024, 06/04/2024, Additional history exists Influenza Vaccine (#1) 2025 Hepatitis B Vaccine Aged Out No longe r eligible based on patient's age to complete this topic Insurance [address] [place] [id number] Medicaid [place] [id number] [facility] Medicare Care Teams Road Supervisor Relationship Specialty Start Date End Date Orlando Concepcion DO [address] [place] [address] PCP - General Family Medicine 06/24/24
[2025-03-28 09:30] VITALS: BP 156/81; PULSE 83; RESP 20; TEMP 36.2; O2SAT 96
--- NOTE | 2025-03-28 09:57 | ED_ITS ---
HPI - Back Pain/Injury General Chief Complaint: Back Injury/Pain Stated Complaint: Back pain Time Seen by Provider: 03/28/25 09:45 History of Present Illness HPI Narrative: Patient is a 64-year-old woman who began having low back pain without radiculopathy yesterday. She has had no fevers no chills no night sweats no radicular symptoms no bowel or bladder symptoms. She has had no recent injuries. Patient has been taking Tylenol Motrin with no affect. Patient is still able to ambulate without any difficulty. Pain is located in the low lumbar spine in the midline. Related Data Home Medications ?Medication ?Instructions ?Recorded ?Confirmed alprazolam 0.25 mg tablet mg 10/29/24 amlodipine 10 mg tablet mg DAILY 10/29/24 atorvastatin 80 mg tablet mg DAILY 10/29/24 blood sugar diagnostic (Accu-Chek 10/29/24 10/29/24 Guide test strips) brimonidine 0.2 % eye drops 1 drp ophthalmic (eye-left ) BID 10/29/24 10/29/24 clobetasol 0.05 % topical cream topical BID PRN famotidine 40 mg tablet mg DAILY 10/29/24 ferrous gluconate 324 mg (38 mg mg 10/29/24 iron) tablet ferrous sulfate 325 mg (65 mg mg PO DAILY 10/29/24 iron) tablet,delayed release hydralazine 50 mg tablet 50 mg PO DAILY 10/29/2410/06 hydroxyzine pamoate 25 mg capsule mg 3XD 10/29/24 lancets (Accu-Chek Softclix 10/29/24 10/29/24 Lancets) levetiracetam 500 mg tablet mg PO 10/29/24 levothyroxine 75 mcg tablet 75 mcg PO DAILY 10/29/24 0 10/29/24 lisinopril 10 mg tablet 10 mg PO DAILY 10/29/2410/06 loperamide 2 mg capsule 2 mg PO Q4H PRN diarrhea 10/29/24 meclizine 25 mg tablet 25 mg PO DAILY 10/29/2410/06 ondansetron 4 mg disintegrating 4 mg translingual Q8H PRN 02/25/25 02/25/25 tablet pioglitazone 45 mg tablet 45 mg PO DAILY 10/29/24 02/01/26 timolol maleate 0.5 % eye drops 1 drp ophthalmic (eye) BID 10/29/24 10/29/24 triamcinolone acetonide 0.1 % applic topical 3XD 10/29 topical cream Previous Rx's ?Medication ?Instructions ?Recorded clopidogrel 75 mg tablet (Plavix) 75 mg PO DAILY #30 t abs 06/20/24 Allergies Allergy/AdvReac Type Severity Reaction Status Date / Time Unable to Assess Allergy Verified 02/03/25 13:07 Review of Systems Status of ROS: Reports: 10 or more systems reviewed and unremarkable except as noted in History and below [facility] Social History Smoking Status: Former smoker How often do you have a drink containing alcohol: never How often do you have six or more drinks on one occasion: Never AUDIT-C Alcohol total score: 0 Non-prescribed substance use: denies use Exam Narrative: Exam Narrative: EXAM GENERAL: Patient appears comfortable and well. EYES: No scleral icterus. LYMPH: No supraclavicular or cervical lymphadenopathy. SKIN: Visible skin seen during exam normal or with benign process only. EXT: No dependent lower extremity pedal edema. HEART: Regular rate and rhythm with no murmurs, rubs, or gallops. LUNGS: Clear to auscultation bilaterally with no crackles or wheezes. ABD: Soft, non tender, non distended. PSYCH: Good eye contact, speech is not pressured. Const: Vital Signs, click to edit/add: Vital Signs - 24 hr 03/28/25 09:30 Temperature 97.2 F L Pulse Rate [Pulse Oximeter] 83 Respiratory Rate 20 Blood Pressure [Ri ght Upper Arm] 156/81 H Pulse Oximetry 96 Oxygen Delivery Me thod Room Air Course Course ED Course: Patient seen examined. Find no neurologic symptoms no alarm symptoms. No recent trauma. I did increase her pain control Tylenol No. 3 1-2 every 4-6 as needed. She can still take ibuprofen ice advanced activity as tolerated follow- up with her doctor next week if symptoms not better. Vital Signs Vital signs: Initial Vital Signs Temperature 97.2 F L 03/28/25 09:30 Temperature Source Temporal Artery Scan 03/28/25 09:30 Pulse Rate 83 03/28/25 09:30 Pulse Rhythm Regular 03/28/25 09:30 Respiratory Rate 20 03/28/25 09:30 Blood Pressure 156/81 H 03/28/25 09:30 Blood Pressure Mean 106 H 03/28/25 09:30 Pulse Oximetry 96 03/28/25 09:30 Oxygen Delivery Method Room Air 03/28/25 09:30 Vital Signs Temperature 97.2 F L 03/28/25 09:30 Pulse Rate 83 03/28/25 09:30 Respiratory Rate 20 03/28/25 09:30 Blood Pressure 156/81 H 03/28/25 09:30 Pulse Oximetry 96 03/28/25 09:30 Oxygen Delivery Method Room Air 03/28/25 09:30 Temperature 97.2 F L 03/28/25 09:30 Pulse Rate 83 03/28/25 09:30 Respiratory Rate 20 03/28/25 09:30 Blood Pressure 156/81 H 03/28/25 09:30 Pulse Oximetry 96 03/28/25 09:30 Oxygen Delivery Method Room Air 03/28/25 09:30 Discharge Plan Discharge Clinical Impression: Strain of lumbar region Patient Disposition: Home, Self-Care Condition: Stable Instructions: Back Pain (ED) Additional Instructions: Tylenol No. 3 as directed Ibuprofen 600 mg 3 times a day as needed Ice Advanced activity as tolerated Follow-up with your doctor as needed. Activity Level: No Restrictions Discharge Diet: Regular Prescriptions: No Action clopidogrel [Plavix] 75 mg tablet 75 mg PO DAILY Qty: 30 0RF atorvastatin 80 mg tablet DAILY loperamide 2 mg capsule 2 mg PO Q4H PRN (Reason: diarrhea) levetiracetam 500 mg tablet PO famotidine 40 mg tablet DAILY clobetasol 0.05 % cream topical BID PRN pioglitazone 45 mg tablet 45 mg PO DAILY Patient Comments: [NO ORIGINAL SIG] (DME) Accu-Chek Guide test strips Strip MISCELLANEOUS 3XD triamcinolone acetonide 0.1 % cream topical 3XD levothyroxine 75 mcg tablet 75 mcg PO DAILY (DME) lancets [Accu-Chek Softclix Lancets] Misc MISCELLANEOUS BID alprazolam 0.25 mg tablet Patient Comments: [NO ORIGINAL SIG] meclizine 25 mg tablet 25 mg PO DAILY Patient Comments: [NO ORIGINAL SIG] amlodipine 10 mg tablet DAILY lisinopril 10 mg tablet 10 mg PO DAILY brimonidine 0.2 % drops 1 drp ophthalmic (eye-left) BID hydralazine 50 mg tablet 50 mg PO DAILY Patient Comments: [NO ORIGINAL SIG] ferrous sulfate 325 mg (65 mg iron) tablet,delayed release (DR/EC) PO DAILY timolol maleate 0.5 % drops 1 drp ophthalmic (eye) BID ondansetron 4 mg tablet,disintegrating 4 mg translingual Q8H PRN Patient Comments: [NO ORIGINAL SIG] hydroxyzine pamoate 25 mg capsule 3XD ferrous gluconate 324 mg (38 mg iron) tablet Patient Comments: [NO ORIGINAL SIG] Follow Up/Referrals: MARILY NUÑEZ DO [Primary Care Provider, Family Practice] Stand Alone Forms: [facility] Info Instructions
== END 2025-03-28 10:31 | disposition home or self-care (01) ==
PROVIDERS: Emergency Provider Internal Medicine; PCP Student in an Organized Health Care Education/Training Program
DX: S39.012A Strain of muscle, fascia and tendon of lower back, initial encounter (principal)
CPT/HCPCS: 99283

== ENCOUNTER 2025-03-30 00:52 | Emergency (ER) | payer MEDICARE, BC, SELFPAY ==
--- OUTSIDE RECORDS SUMMARY | 2025-03-30 00:55 | XMS_ITS | Clinical Summary ---
Author Organization [facility] Address [address] [place] [address] Phone Care Team Providers Care Heater Worker Name Role Phone Orlando Concepcion DO Primary Care Provider [phone] Allergies Active Allergy Reactions Criticality Noted Date [...] (07/08/2024): Patient seen by endocrinology 09/2021 at [place]. Diagnosed with Autoimmune hypothyroidism/ Pascual's thyroiditis. Does [...] Comments Blood Pressure 121/60 07/08/2024 8:58 AM HARDENING MACHINE OPERATOR HELPER Pulse 73 07/08/2024 8:58 AM HARDENING MACHINE OPERATOR HELPER Temperature - - Respiratory Rate - - Oxygen Saturation - - Inhaled Oxygen Concentration - - Weight 89.8 kg (198 lb) 07/08/2024 8:58 AM HARDENING MACHINE OPERATOR HELPER Height 149.9 cm (4' 11) 07/08/2024 8:58 AM HARDENING MACHINE OPERATOR HELPER Body Mass Index 39.99 07/08/2024 8:58 AM HARDENING MACHINE OPERATOR HELPER Plan of Treatment Health Maintenance Due Date [...] topic Insurance [address] [place] [address] [place] [id number] [facility] Medicare Care Teams Heater Worker Relationship Specialty Start Date End Date Orlando Concepcion DO [address] [place] [address] PCP - General Family Medicine 06/24/24
--- OUTSIDE RECORDS SUMMARY | 2025-03-30 00:55 | XMS_ITS | Clinical Summary ---
Author Organization [employer] [facility] Address [address] [place] [address] Care Team Providers Care Cage Supervisor Name Role Phone Karissa Childs MD Unavailable [phone] Orlando Concepcion DO Primary Care Provider [phone] Giovanna Diez PharmD Unavailable [phone] Allergies Active Allergy Reactions Criticality Noted Date [...] (09/26/2022): Patient seen by endocrinology 09/2021 at [place]. Diagnosed with Autoimmune hypothyroidism/ Pascual's thyroiditis. Does [...] Description 03/21/2025 1:45 PM CDT Ancillary Procedure [address] [address] 03/21/2025 12:50 PM CDT Office Visit [address] [address] Orlando Concepcion DO URI (Congestion, cough and wheezing x week/03/20 negative COVID-19 test/) 03/21/[address] [address] Orlando Concepcion DO Refill Request (Fluticasone (50 Mcg Per Actuation) Nasal) 03/21/2025 Travel 02/24/[address] [address] Orlando Concepcion DO Refill Request (Ferrous Gluconate) 01/29/[address] [address] Orlando Concepcion DO Refill Request 01/25/[address] [address] Orlando Concepcion DO Refill Request (Levetiracetam) 01/22/2025 3:45 PM CDT Ancillary Procedure [address] [address] 01/22/2025 2:55 PM CDT Office Visit [address] [address] Orlando Concepcion DO Abdominal Pain; Concerns (States she talk to someone at the social security office and he was going to be requesting info on the patient's inability to work, might need office notes stating that she has an off gait and unable to lift, etc. Did have an OT eval yesterday at [facility] ) 01/22/2025 Travel 01/18/2025 Travel 01/13/2025 2:15 PM CDT Ancillary Procedure [facility] [address] [place] [address] 01/13/2025 12:50 PM CDT Office Visit [address] [place] [address] Orlando Concepcion DO Medication Management 01/13/2025 Travel 01/07/2025 1:15 PM CDT Office Visit [facility] [place] [facility] [address] [facility] [place] [address] Philomena Hernandez, ANIMAL HUSBANDRY TEACHER Consult 01/07/2025 Travel 01/02/[address] [address] Orlando Concepcion DO Refill Request (Hydralazine) 01/01/2025 1:00 PM CDT Nurse/Clinic Staff Only [facility] [address] [place] [address] Infusion Therapy (1st Feraheme infusion) 01/01/[address] [address] Orlando Concepcion DO Medication Reaction (Dizziness and feeling HOT after 4 min. Infused of 1st Feraheme on 01-01-25) 01/01/2025 Travel 12/30/[address] [address] Orlando Concepcion DO Refill Request (Levetiracetam) 12/29/[address] [address] Orlando Concepcion DO Refill Request (Levetiracetam) from Last 3 Months Immunizations Immunization Administration Dates Next Due COVID-19 vaccine ([employer] 30mcg/0.3mL) 12YO+ WING-SUCROSE PF, MDV 10/08/2021 COVID-19 [...] ne [place] Paternal Grandmother (Age 86) st [place], Sister 1 Alive Sister 2 Alive Social [...] Sex Assigned at Female 08/31/2024 1:37 PM SPECIAL PROCEDURES NURSE Legal Sex Female 6:39 AM SPECIAL PROCEDURES NURSE Gender Identity Female 08/31/2024 1:37 PM SPECIAL PROCEDURES NURSE Sexual Orientation Straight 08/31/2024 1: 37 PM SPECIAL PROCEDURES NURSE Occupation Industry Job Start Date Job End [...] Care Team (Late st Contact Info) Description 04/07/2025 2:30 PM CDT Office Visit [facility] [address] [place] [address] Orlando Concepcion, [address] [place] [address] 04/15/2025 12:50 PM CDT Office Visit [facility] [address] [place] [address] Orlando Concepcion, [address] [place] [address] Health Maintenance Due Date Last Done Comments [...] for age 65+ 2023 COVID-19 vaccine series (2023- season) 2024 10/08/2021, 10/08/2021, 04/09/2021, Additional history [...] of finger of left hand, initial encounter LIPID PANEL W REFLEX MEASURED LDL Today 10/13/2024 4:05 PM SPECIAL PROCEDURES NURSE TIA (transient ischemic attack) COLONOSCOPY 09/13/2024 7:[address] CHEST ABDOMEN PELVIS WO STAT 09/10/2024 7:40 PM SPECIAL PROCEDURES NURSE ANTI HCV Routine 05/11/2022 11:13 AM CDT [...] MD @ 03/21/2025 3:01:53 PM (Electronically Signed) Adei Numascaleq DO GENERAL IMAGING Final Result * GLUCOSE, RANDOM (01/22/2025 3:56 PM CDT) Pathologist [facility] GLUCOSE, RANDOM 119 <140 mg/dL Que SHAPERamses Garza Blood BLOOD SPECIMEN / Unknown 01/22/2025 3:56 PM CDT 01/22/2025 3:56 PM CDT Adei Numascaleqra DO CHEMISTRY Final Result [facility] [address] [place] [address], [facility] [address] [place] [address] * HEMOGLOBIN (01/22/2025 3:56 PM CDT) HEMOGLOBIN 13.2 11.7 - 15.5 g/dL [facility] Blood BLOOD SPECIMEN / Unknown 01/22/2025 3:56 PM CDT 01/22/2025 3:56 PM CDT [facility] Final Result Performing Organization Address [facility]/ZIP Co de Phone Number [facility] [address] [place] [address], [place] [phone] [facility] [address] [place] [address] * LIPASE (01/22/2025 3:56 PM CDT) Pathologist [facility] LIPASE 29 7 - 60 U/L [facility] Blood BLOOD SPECIMEN / Unknown 01/22/2025 3:56 PM CDT 01/22/2025 3:56 PM CDT Lindsey Jamey CHEMISTRY Final Result Performing Organization Address [facility] Co de Phone Number [facility] [address] [place] [address], [place] [phone] [facility] [address] [place] [address] * HEPATIC FUNCTION PANEL (01/22/2025 3:56 PM CDT) PROTEIN, TOTAL 7.0 6.1 - 8.1 g/dL [facility] ALBUMIN 4.0 3.6 - 5.1 g/dL [facility] GLOBULIN 3.0 1.9 - 3.7 g/dL (calc) [facility] ALBUMIN/GLOBULIN RATIO 1.3 1.0 - 2.5 (calc) [facility] BILIRUBIN, TOTAL 0.2 0.2 - 1.2 mg/dL [facility] BILIRUBIN, DIRECT 0.0 < OR = 0.2 mg/dL [facility] BILIRUBIN, INDIRECT 0.2 0.2 - 1.2 mg/dL (calc) [facility] ALKALINE PHOSPHATASE 133 37 - 153 U/L [facility] AST 10 10 - 35 U/L [facility] ALT 10 6 - 29 U/L [facility] Blood BLOOD SPECIMEN / Unknown 01/22/2025 3:56 PM CDT 01/22/2025 3:56 PM CDT us Adei Shaqra DO CHEMISTRY Final Result Performing Organization Address City/[facility]/ZIP Co de Phone Number [facility] [address] [place] [address], [place] [phone] [facility] [address] [place] [address] * (ABNORMAL) URINALYSIS MICROSCOPIC (01/22/2025 3:55 PM CDT) RBC 0-2 0-2, None Seen /HPF 01/23/2025 1:15 AM CDT [facility] [employer] [facility] WBC 11-25(A) 0-2, 3-5, None Seen /HPF 01/23/2025 1:15 AM CDT [facility] BACTERIA None Seen None Seen, Rare, Few Bacteria/ HPF 01/23/2025 1:15 AM CDT [facility] EPITHELIAL CELLS None Seen None Seen, Few Epi/HPF 01/23/2025 1:15 AM CDT [facility] HYALINE CASTS 0-2 0-2, 3-5 /LPF 01/23/2025 1:15 AM CDT [facility] Urine URINE SPECIMEN / Unknown Non-Blood / Unknown 01/22/2025 3:55 PM CDT 01/22/2025 4:14 PM CDT us Adei Latrellqra DO URINE Final Result [facility] [address] [place] [address], [place] * URINE CULTURE (01/22/2025 3:55 PM CDT) CULTURE <10,000 CFU/mL multiple organisms 01/24/2025 12:16 PM CDT [facility] Urine URINE SPECIMEN / Unknown Non-Blood / Unknown 01/22/2025 3:55 PM CDT 01/22/2025 4:14 PM CDT Lindseydariel Samsisidro DO MICROBIOLOGY Final Result [facility] [address] [place] [address], [place] * XR ABDOMEN 1 VIEW (01/22/2025 [...] MD @ 01/22/2025 3:56:54 PM (Electronically Signed) [facility] DO GENERAL IMAGING Final Result * XR [...] MD @ 01/13/2025 2:29:36 PM (Electronically Signed) Adei Latrellqra DO GENERAL IMAGING Final Result * (ABNORMAL) LIPID PANEL W REFLEX MEASURED LDL (10/13/2024 4:05 PM SPECIAL PROCEDURES NURSE) CHOLESTEROL,TOTAL 114 100 - 199 mg/dL 10/18/2024 2:25 PM [facility] Comment: Cholesterol, Total Reference Ranges Desirable <200 mg/dL Borderline 200-239 mg/dL High >=240 mg/dL TRIGLYCERIDES 186(H) <150 mg/dL 10/18/2024 2:25 PM [facility] HDL CHOLESTEROL 33(L) >40 mg/dL 2:25 PM [facility] NON-HDL CHOLESTEROL 81 <145 mg/dl 10/18/2024 2:25 PM [facility] CHOL/HDL RATIO 3.45 <4.50 10/18/2024 2:25 PM [facility] LDL CHOLESTEROL 44 <=130 mg/dL 10/18/2024 2:25 PM [facility] VLDL CHOLESTEROL 37(H) <=30 mg/dL 10/18/2024 2:25 PM [facility] PROVIDER ORDERED STATUS NOT GIVEN 10/18/2024 2:25 PM [facility] Blood BLOOD SPECIMEN / Unknown Venipuncture / Unknown 10/13/2024 4:05 PM SPECIAL PROCEDURES NURSE 10/13/2024 4:07 PM SPECIAL PROCEDURES NURSE us Adei Jamey DO CHEMISTRY Final Result [facility] [address] [place] [address] * COLONOSCOPY (09/13/2024 7:15 AM SPECIAL PROCEDURES NURSE) 09/13/2024 7:15 AM SPECIAL PROCEDURES NURSE Narrative Transcriptions Ernie Shetty MD - 09/13/2024 [...] adequate candidate for conscious sedation. The endoscope [id number] was passed through the anus and advanced [...] CHEST ABDOMEN PELVIS WO (09/10/2024 7:40 PM SPECIAL PROCEDURES NURSE) Anatomical Region Laterality Modality Abdomen, Pelvis, AORTA, LIVER, SPLEEN, CHEST Computed Tomography 09/10/2024 7:53 PM SPECIAL PROCEDURES NURSE Impressions 09/10/2024 7:53 PM SPECIAL PROCEDURES NURSE 1. Right axillary adenopathy seen with lymph [...] 19:53:09 (Electronically Signed) Narrative 09/10/2024 7:53 PM SPECIAL PROCEDURES NURSE For Patients: As a result of the 21st Century Cures Act, medical imaging exams and procedure [...] Malik MD @ 09/10/2024 19:53:09 (Electronically Signed) us Mehul SNYDER CT Final Re sult * ANTI HCV (05/11/2022 11:13 AM CDT) HEPATITIS C ANTIBODY Non-React ebony Non-React ebony 05/12/2022 1:53 AM CDT [facility] Comment:Antibodies to HCV no t detected; does not exclude the possibility of exposure to HCV. Blood BLOOD SPECIMEN / Unknown Venipuncture / Unknown 05/11/2022 11:13 AM CDT 05/11/2022 11:15 AM CDT Stacy Trevizo MD SEND OUTS Fin al Result [facility] [address] [place] [address], [place] * XR MAMMO BILAT DIAG FFDM [...] Insurance MEDICAID MEDICARE PART A HB ONLY [facility] Advance Directives Documents on File Type Date Recorded Patient Potato Peeler Expl anation Healthcare Directive 06/06/2024 024 * [...] Code Status Discussion: Reviewed Preferences Care Teams Cage Supervisor Relationship Specialty Start Date End Date Orlando [place] [address] PCP - General Family Practice 06/11/24 Karissa Childs MD [address] [facility] [address] [place] [address] Rheumatology Rheumatology 01/19/16 Giovanna Diez PharmD [address] [facility] [place] [address] Pharmacist Medication Management Pharmacology 06/26/24 06/26/27
--- OUTSIDE RECORDS SUMMARY | 2025-03-30 00:55 | XMS_ITS | Encounter Summary ---
Author Organization [facility] Address [address] [place] [address] Care Team Providers Care Systems Integration Advisor Name Role Phone None Reported, Pcp Primary Care Provider Unavail able Encounter Details Date Type Department Care Team (Late st Contact Info) Description 02/27/2025 Clinical Communication Department of [facility] in [place], [place] [address] [place] [address] Cora Lindsey MPAS, P.A.-C. [address] [place] [address] Social History Tobacco Use Types Packs/Day Years Used Date Smoking Tobacco: Some Days Cigarettes Smokeless Tobacco: Never Alcohol Use Standard Drinks/Week Comments No 0 (1 standard drink = 0.6 oz pur e alcohol) [facility] Utilities Answer Date Recorded In the past 12 months has e [employer], gas, oil, or water [employer] threatened to shut off services in your [...] Sex Assigned at Female 11/07/2024 8:42 AM ENROLLED NURSE Legal Sex Female 4:23 PM ENROLLED NURSE Gender Identity Female 11/07/2024 8:42 AM ENROLLED NURSE Sexual Orientation Straight 11/07/2024 8: 42 AM ENROLLED NURSE documented as of this encounter Miscellaneous Notes * Telephone Encounter - Rolanda Felix R.N. - 02/27/2025 4:52 PM CDT Please PCP elsewhere - There is evidence in Care Everywhere that the patient is receiving Primary Care at another organization documented in this encounter Plan of Treatment Not on file documented as of this encounter Visit Diagnoses Not on filedocumented in this encounter Care Teams Systems Integration Advisor Relationship Specialty Start Date End Date None Reported, Pcp PCP - General Family Medicine 02/27/25 documented as of this encounter
--- OUTSIDE RECORDS SUMMARY | 2025-03-30 00:55 | XMS_ITS | Clinical Summary ---
Author Organization [facility] Address [address] [place] [address] Care Team Providers Care Youth Pastor Name Role Phone None Reported, Pcp Primary Care Provider Unavail able Source Comments Patient records contain information from all sites at [facility]. For routine questions regarding patient records, call [phone] during business hours, M-F 8:00 AM - 5:00 PM Central Time. Record requests for emergency care only can be directed to [phone] at any time.[facility] Allergies Active Allergy Reactions Criticality Noted Date [...] Communication Department of Community Internal Medicine in [place], [place] [address] [place] [id number] Cora Lindsey MPAS, P.A.-C. 01/01/2025 Clinical Communication Department of [facility] in [place], [place] [address] [place] [id number] Cora Lindsey MPAS, P.A.-C. Health Maintenance from [...] drink = 0.6 oz pur e alcohol) [facility] Utilities Answer Date Recorded In the past 12 months has e [employer], gas, oil, or water [employer] threatened to shut off services in your [...] your living situation today? I have a [facility] place to live 11/07/2024 Comments No Sex and Gender Information Value Date Recorded Sex Assigned at Female 11/07/2024 8:42 AM COMBINER OPERATOR Legal Sex Female 4:23 PM COMBINER OPERATOR Gender Identity Female 11/07/2024 8:42 AM COMBINER OPERATOR Sexual Orientation Straight 11/07/2024 8: 42 AM COMBINER OPERATOR Last Filed Vital Signs Vital Sign Reading Time Taken Comments Blood Pressure 138/58 01/22/2025 3:19 PM CDT BP taken at PCP appt at [facility] Pulse 89 11/14/2024 2:41 PM CDT Temperature [...] 1958 CT Colonography 1960 Cologuard 1960 Diabetic Eye Exam 1958 Diabetic Office Visit with Foot Exam [...] - Risk 60-74 years 1-dose series) 2018 COVID-19 Vaccine ( season) 2024 10/08/2021, 04/09/2021, 03/16/2021 Influenza Vaccine (#1) 2025 Hemoglobin A1C 06/25/2025 12/24/2024, 08/04, 06/04/2024, Additional history exists Thyroid Stimulating Hormone [...] this topic Medical Devices Implanted Type Area Upper Cutter Device Identifier Shelf Expiration Date Model / Serial / Lot Lens Acr Sa60at Ant +23.0d - [id number] - [id number] Implanted:Qty : 1 on 12/12/2018 by Doug Graham M.D. at [facility] Ocular Lens Right: Eye [employer] 08/03/2023 [id number] / [id number] / Procedures Procedure Name Priority Date/Time Associated Diagnosis Comments THYROID-STIMULATING HORMONE-SENSITIVE (S-TSH) Routine 09/06/2024 11:11 AM COMBINER OPERATOR Autoimmune Thyroid Disease BASIC METABOLIC PANEL, S/P Routine 09/06/2024 11:11 AM COMBINER OPERATOR Failure Renal Acute (Acute Kidney Injury) (HCC) from Last 3 Months or Most Recently Relevant to Health Maintenance Results * (ABNORMAL) S-TSH (Thyroid-Stimulating Hormone - Sensitive) (09/06/2024 11:11 AM COMBINER OPERATOR) TSH, Sensitive 11.3(H) 0.3 - 4.2 mIU/L 09/06/2024 1:35 PM COMBINER OPERATOR OWAT Blood (Blood, Venous) 09/06/2024 11:11 AM COMBINER OPERATOR 09/06/2024 12:42 PM COMBINER OPERATOR us Mary Raymundo P.A.-C. LAB BLOOD ADD-ON Final Resu lt [facility] [address] [place] [address], [facility] OWAT [facility] [place] [address] [place] [address] * (ABNORMAL) Basic Metabolic Panel (09/06/2024 11:11 AM COMBINER OPERATOR) Potassium, P 4.5 3.6 - 5.2 mmol/L 09/06/2024 1:36 PM COMBINER OPERATOR OWAT Sodium, P 135 135 - 145 mmol/L 09/06/2024 1:36 PM COMBINER OPERATOR OWAT Chloride, P 100 98 - 107 mmol/L 09/06/2024 1:36 PM COMBINER OPERATOR OWAT Bicarbonate, P 25 22 - 29 mmol/L 09/06/2024 1:36 PM COMBINER OPERATOR OWAT Anion Gap, P 10 7 - 15 09/06/2024 1:36 PM COMBINER OPERATOR OWAT BUN (Blood Urea Nitrogen), P 29(H) 6 - 21 mg/dL 09/06/2024 1:36 PM COMBINER OPERATOR OWAT Creatinine 1.53(H) 0.59 - 1.04 mg/dL 09/06/2024 1:36 PM COMBINER OPERATOR OWAT Estimated GFR (eGFR) 37(L) >=60 mL/min/BSA 09/06/2024 1:36 PM COMBINER OPERATOR OWAT Comment: Estimated GFR calculated using the 2020 CKD_EPI creatinine equation. Calcium, Total, P 9.7 8.8 - 10.2 mg/dL 09/06/2024 1:36 PM COMBINER OPERATOR OWAT Glucose, P 221(H) 70 - 140 mg/dL 09/06/2024 1:36 PM COMBINER OPERATOR OWAT Blood (Blood, Venous) 09/06/2024 11:11 AM COMBINER OPERATOR 09/06/2024 12:42 PM COMBINER OPERATOR Mary Raymundo P.A.-C. LAB BLOOD ADD-ON Final Resu lt [facility] [address] [place] [address], [place] OWAT [facility] in [place] [address] [place] [address] from Last 3 Months or Most Recently Relevant to Health Maintenance Insurance AARP [facility] Care Teams Youth Pastor Relationship Specialty Start Date End Date None Reported, Pcp PCP - General Family Medicine 02/27/25
[2025-03-30 01:11] VITALS: BP 155/63; PULSE 90; RESP 16; TEMP 36.6; O2SAT 94; BMI 42.0
--- NOTE | 2025-03-30 02:26 | ED_ITS ---
HPI - General Adult General Chief complaint: Back Injury/Pain Stated complaint: back pain Time Seen by Provider: 03/30/25 01:22 Source: patient Mode of arrival: ambulatory Limitations: no limitations History of Present Illness HPI narrative: 64-year-old female presents the emergency department for the 2nd time in 2 days for evaluation of back pain that radiates in a band across her lower back, no weakness in the legs. No loss of bowel or bladder control. Notes from 2 days ago reviewed. 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 Symptoms started 3 days ago after a coughing fit. She was recently treated with doxycycline for what is described as a sinus infection. She is a smoker. She denies a history of COPD or other chronic lung disease. No imaging was performed nor indicated based on her symptoms. No steroid usage, no muscle relaxants. She denies prior history of back problems. No physical therapy or prior surgery. She takes multiple medications. She reports a history of stroke 7 months ago, is on Plavix for this. She reports an allergy to prednisone, it sounds like it was a side effect reaction and not anaphylaxis. She is uncertain if she has ever been treated with other steroids. She is not an optimal historian. For her pain, she has been using extra-strength Tylenol 2 tablets 3 times daily. She was advised to use ibuprofen at her last ED visit. She reports that she has not been taking that because her primary care provider had previously told her to try to avoid it if possible due to her prior stroke. No weakness in her legs, no numbness and tingling. Normal bowel movements. No vomiting or fever. Past medical history notable for prior stroke, hypertension, hyperlipidemia, well-controlled diabetes. Smoker. ROS is pertinent for still having some mild cough but no fever or severe shortness of breath. ROS is otherwise benign and stable times 12 systems. Related Data Home Medications ?Medication ?Instructions ?Recorded ?Confirmed alprazolam 0.25 mg tablet mg 10/29/24 amlodipine 10 mg tablet mg DAILY 10/29/24 atorvastatin 80 mg tablet mg DAILY 10/29/24 blood sugar diagnostic (Accu-Chek 10/29/24 10/29/24 Guide test strips) brimonidine 0.2 % eye drops 1 drp ophthalmic (eye-left ) BID 10/29/24 10/29/24 clobetasol 0.05 % topical cream topical BID PRN famotidine 40 mg tablet mg DAILY 10/29/24 ferrous gluconate 324 mg (38 mg mg 10/29/24 iron) tablet ferrous sulfate 325 mg (65 mg mg PO DAILY 10/29/24 iron) tablet,delayed release hydralazine 50 mg tablet 50 mg PO DAILY 10/29/2410/06 hydroxyzine pamoate 25 mg capsule mg 3XD 10/29/24 lancets (Accu-Chek Softclix 10/29/24 10/29/24 Lancets) levetiracetam 500 mg tablet mg PO 10/29/24 levothyroxine 75 mcg tablet 75 mcg PO DAILY 10/29/24 0 10/29/24 lisinopril 10 mg tablet 10 mg PO DAILY 10/29/2410/06 loperamide 2 mg capsule 2 mg PO Q4H PRN diarrhea 10/29/24 meclizine 25 mg tablet 25 mg PO DAILY 10/29/2410/06 ondansetron 4 mg disintegrating 4 mg translingual Q8H PRN 10/29/24 10/29/24 tablet pioglitazone 45 mg tablet 45 mg PO DAILY 10/29/2410/06 timolol maleate 0.5 % eye drops 1 drp ophthalmic (eye) BID 10/29/24 10/29/24 triamcinolone acetonide 0.1 % applic topical 3XD 10/29 topical cream Previous Rx's ?Medication ?Instructions ?Recorded clopidogrel 75 mg tablet (Plavix) 75 mg PO DAILY #30 t abs 06/20/24 Allergies Allergy/AdvReac Type Severity Reaction Status Date / Time Unable to Assess Allergy Verified 02/03/25 13:07 [facility] Social History Smoking Status: Former smoker How often do you have a drink containing alcohol: never How often do you have six or more drinks on one occasion: Never AUDIT-C Alcohol total score: 0 Non-prescribed substance use: denies use Exam Const: Vital Signs, click to edit/add: Vital Signs - 24 hr 03/30/25 01:11 Temperature 98 F Pulse Rate [Pulse Oximeter] 90 Respiratory Rate 16 Blood Pressure [Ri ght Upper Arm] 155/63 H Pulse Oximetry 94 Oxygen Delivery Me thod Room Air Documenting provider has reviewed patient's vital signs: yes Common normals: no apparent distress and alert General appearance: cooperative Other: Suboptimal historian but appears well-nourished, well-hydrated. HENMT: Common normals: normocephalic, moist oral mucous membranes and oropharynx normal Head and scalp: normocephalic Mouth: oral and palatal mucosa normal Eye: Common normals: conjunctivae normal General eye: normal appearance of both eyes Conjunctiva: conjunctiva(e) normal Neck & C-Spine: Common normals: full ROM and no lymphadenopathy Other: Loss of normal cervical lordosis with significant forward head positioning in relation to thoracic spine. No point bony tenderness to cervical spine. Resp: Common normals: normal respiratory effort Effort & inspection: able to speak in complete sentences Other: Breath sounds are a little distant but no wheeze, rales or rhonchi. Back & Pelvis: Other: Very poor posture with chronic rounding of the thoracic spine, loss of lumbar lordosis, chronic drop and forward positioning of right shoulder. Poor cervical spine positioning as well. No point bony tenderness to anywhere on the spine. Mild to moderate tenderness to left and right paraspinal lumbar muscles, mild tenderness over left SI joint as well. Straight leg lift is positive at 0-15 degrees, does not worsen in typical 30-70 degree arc. Pain worsens a little with extension, does not worsen with flexion. Patient could not participate and spondylosis maneuvers due to poor balance and overall poor conditioning. No weakness or loss of sensation in the legs. Symmetric bilaterally. Extremity: Common normals: normal capillary refill Neuro: Sensorium/orientation: alert Speech: speech normal Psych: Appearance: grossly normal Attitude: engaged Insight: fair Judgement: fair Skin: Narrative: Large Plaques of psoriasis, including over the lumbar area in question. No signs of active infection. Course Course ED Course: 64-year-old female with very poor posture and chronic appearing back issues presents with no significant improvement but no real worsening of her low back pain. She has not followed through with the proposed treatment from 2 days prior. Notes are extensively reviewed. She still does not meet any criteria for imaging. We discussed treatment options. I discussed with patient that I think she is going to continue to struggle with this problem mainly due to chronic appearing mechanical issues in her back. She would benefit from physical therapy and strengthening. We discussed the risks and benefits of NSAIDs, steroids, other treatments. Home exercise plan as written. We discussed steroids, it sounds as though she has not tolerated prednisone well in the past but is uncertain if she has tried other steroids. 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 She has not been using NSAIDs out of fear that this would not interact well with her Plavix and recent stroke, but of note the stroke was more than 6 months ago. We discussed that everything in medicine has risks. The benefit of some of these treatments does seem to outweigh the risks she reports that her pain is unbearable. I recommended a course of prednisolone. The only option available in the middle of the night from [employer] is the liquid. She will take 6 mL which is about 20 mg twice daily for 5 days, elects to start this in the morning as she would like to try to get some sleep. Prescription given for Flexeril 10 mg at bedtime p.r.n. for muscle spasm. This does seem mechanical. We discussed continued use of Tylenol but if she does elect to use the Tylenol with codeine that was prescribed she does need to calculate this in with her total daily dosing. She verbalizes understanding and agreement. She will be given IM Toradol here in the ED and will take the Flexeril when she gets home as we are worried about her getting checked into bed if we caused too much sedation due to her obesity and overall debility. Symptoms should start to improve within a couple of days on the prednisolone. Alarm symptoms such as allergic reaction were reviewed that would warrant ED presentation. If symptoms are not improving in 5 days, she should make a primary care visit for follow-up, rarely this would need to be evaluated in the ED but those indications were written for her. She verbalizes understanding and agreement. Vital Signs Vital signs: Initial Vital Signs Temperature 98 F 03/30/25 01:11 Temperature Source Temporal Artery Scan 03/30/25 01:11 Pulse Rate 90 03/30/25 01:11 Respiratory Rate 16 03/30/25 01:11 Blood Pressure 155/63 H 03/30/25 01:11 Blood Pressure Mean 93 03/30/25 01:11 Blood Pressure Position Sitting 03/30/25 01:11 Pulse Oximetry 94 03/30/25 01:11 Oxygen Delivery Method Room Air 03/30/25 01:11 Vital Signs Temperature 98 F 03/30/25 01:11 Pulse Rate 90 03/30/25 01:11 Respiratory Rate 16 03/30/25 01:11 Blood Pressure 155/63 H 03/30/25 01:11 Pulse Oximetry 94 03/30/25 01:11 Oxygen Delivery Method Room Air 03/30/25 01:11 Temperature 98 F 03/30/25 01:11 Pulse Rate 90 03/30/25 01:11 Respiratory Rate 16 03/30/25 01:11 Blood Pressure 155/63 H 03/30/25 01:11 Pulse Oximetry 94 03/30/25 01:11 Oxygen Delivery Method Room Air 03/30/25 01:11 Medications Administered Medications: Discontinued Medications Generic Name Dose Route Start Last Admin Trade Name Jeffq PRN Reason Stop Dose Admin Ketorolac Tromethamine 30 mg 03/30/25 02:26 03/30/25 02:31 Ketorolac 30 Mg/Ml Inj IM 03/30/25 02:27 30 mg ONCE ONE Administration Discharge Plan Discharge Clinical Impression: Strain of lumbar region Patient Disposition: Home w/ Parent or Adult Condition: Stable Instructions: Low Back Strain (ED), Lower Back Exercises (ED) Additional Instructions: As we discussed, there does not seem to be any sign of a new, major spine injury. There is a lot of chronic arthritis in your back, chronic rounding of the back, dropping of the right shoulder and poor alignment issues that has caused per minute changes and arthritis in your back. You are likely to suffer flare-ups of this condition again in the future. You also do happen to have a psoriasis area over the affected portion which may have some bearing as well. I agree with your primary care provider that taking NSAIDs like ibuprofen and Aleve is not ideal with your stroke history but it has to be considered when your symptoms are severe enough to come to the emergency department. 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 Your given a shot of Toradol here in the emergency department, this takes about an hour to kick in. I have also prescribed a muscle relaxant, Flexeril that will make you sleepy but also helps relax some of the tightness. Take this right away when you get home. Try to save this for bedtime only as it does cause a lot of fatigue. I do think you would benefit significantly from a steroid but agree with you that it sounds like you were allergic to prednisone. There is a synthetic cousin, prednisolone that I think you might tolerate better. These can cause insomnia, therefore I would prefer that you wait and take it 1st thing in the morning. He will take 6 mL twice daily for a total of 5 days. Try to take your doses 1st thing in the morning with food and then again in the early evening or late afternoon. Do not take it within 4 hours of bedtime because of the risk of insomnia. Remember that if you cannot sleep due to the pain, it is okay to use melatonin, Benadryl or other sleep aids as well. Your primary pain control should be Tylenol as previously discussed. I would recommend that you start physical therapy as your likely to have flare-ups of this again. A referral can come from your primary care team if this is needed or you may schedule it your self. If you have severe weakness in the legs, sudden loss of bowel or bladder control or severe pain accompanied by high fever, you should return to the emergency department. Otherwise, for most people the steroids start to kick in after a couple of days but if you have not noticed any changes after the 5 days of treatment, please follow-up with your primary care team for further guidance. Activity Level: Activity as Tolerated Discharge Diet: Regular Prescriptions: No Action clopidogrel [Plavix] 75 mg tablet 75 mg PO DAILY Qty: 30 0RF atorvastatin 80 mg tablet DAILY loperamide 2 mg capsule 2 mg PO Q4H PRN (Reason: diarrhea) levetiracetam 500 mg tablet PO famotidine 40 mg tablet DAILY clobetasol 0.05 % cream topical BID PRN pioglitazone 45 mg tablet 45 mg PO DAILY Patient Comments: [NO ORIGINAL SIG] (DME) Accu-Chek Guide test strips Strip MISCELLANEOUS 3XD triamcinolone acetonide 0.1 % cream topical 3XD levothyroxine 75 mcg tablet 75 mcg PO DAILY (DME) lancets [Accu-Chek Softclix Lancets] Misc MISCELLANEOUS BID alprazolam 0.25 mg tablet Patient Comments: [NO ORIGINAL SIG] meclizine 25 mg tablet 25 mg PO DAILY Patient Comments: [NO ORIGINAL SIG] amlodipine 10 mg tablet DAILY lisinopril 10 mg tablet 10 mg PO DAILY brimonidine 0.2 % drops 1 drp ophthalmic (eye-left) BID hydralazine 50 mg tablet 50 mg PO DAILY Patient Comments: [NO ORIGINAL SIG] ferrous sulfate 325 mg (65 mg iron) tablet,delayed release (DR/EC) PO DAILY timolol maleate 0.5 % drops 1 drp ophthalmic (eye) BID ondansetron 4 mg tablet,disintegrating 4 mg translingual Q8H PRN Patient Comments: [NO ORIGINAL SIG] hydroxyzine pamoate 25 mg capsule 3XD ferrous gluconate 324 mg (38 mg iron) tablet Patient Comments: [NO ORIGINAL SIG] Follow Up/Referrals: MARILY NUÑEZ DO [Primary Care Provider, Family Practice] Stand [facility]: [facility] Info Instructions
== END 2025-03-30 02:52 | disposition home or self-care (01) ==
PROVIDERS: Emergency Provider Family Medicine; PCP Student in an Organized Health Care Education/Training Program
DX: S39.012A Strain of muscle, fascia and tendon of lower back, initial encounter (principal)
CPT/HCPCS: 96372; 99283; J1885

== ENCOUNTER 2025-04-17 02:56 | Emergency (ER) | payer MEDICARE, BC, SELFPAY ==
[2025-04-17 03:11] VITALS: RESP 18; O2SAT 97
[2025-04-17 03:24] VITALS: BP 177/78; PULSE 95; RESP 18; TEMP 36.7; O2SAT 97; BMI 42.0
[2025-04-17 03:53] LABS: PCR FLU A Negative PCR FLU A (Negative); PCR FLU B Negative PCR FLU B (Negative); PCR RSV Negative PCR RSV (Negative); SARS PCR* Negative SARS-CoV-2 (Negative)
[2025-04-17 03:57] LABS: Appearance Urine Clear (Clear)
[2025-04-17 04:11] VITALS: BP 165/85; PULSE 90; RESP 18; TEMP 36.7; O2SAT 97
--- NOTE | 2025-04-17 04:15 | ED.GENADULT ---
HPI - General Adult General Chief complaint: Unspecified Complaint, Adult Stated complaint: pain all over Time Seen by Provider: 04/17/25 03:29 Source: patient Mode of arrival: ambulatory Limitations: no limitations History of Present Illness HPI narrative: 64-year-old female with a history of cognitive impairment and prior strokes presents to the emergency department for the 3rd time in the past month with complaints of lumbar back pain. These are all typically in the wee hours of the night and she is seeing her primary care provider for this. She argues extensively with me that she has had a CT here in the last 2 days for her back. She has had no imaging upper back through our emergency department. This is her 5th ED visit in less than a year, 3rd in the last month, she is new to our area. We are able to pull that records from [facility] and see that she had a CT of the chest abdomen pelvis 2 and half weeks ago that showed some mild degenerative lumbar spine disease but no major acute pathology. Her primary care provider sent her message explaining this. She tells me that she has been given Tylenol No. 3, oxycodone and does not want to be on those medications but was most recently given Toradol and it does not help. She has is that she can not sleep and she is frustrated in the middle of the night and comes to the ED. She does not remember if the steroid burst that she was given by me 3 weeks ago were helpful or not. It is quite clear that she has difficulty managing these conditions. She lives independently. No new injury or trauma, pain is in the low back, bandlike, does not radiate. She reports the medications listed are accurate as are her allergies. She does not smoke. Medications and prior history reviewed. Two previous ED notes reviewed. Related Data Home Medications ?Medication ?Instructions ?Recorded ?Confirmed amlodipine 10 mg tablet 10 mg PO DAILY 10/29/24 04/17/25 atorvastatin 80 mg tablet 80 mg PO DAILY 10/29/24 04/17/25 blood sugar diagnostic (Accu-Chek 10/29/24 04/17/25 Guide test strips) ferrous gluconate 324 mg (38 mg 324 mg PO DAILY 10/29/24 04/17/25 iron) tablet lancets (Accu-Chek Softclix 10/29/24 04/17/25 Lancets) levetiracetam 500 mg tablet 500 mg PO BID 10/29/24 04/17/25 levothyroxine 75 mcg tablet 75 mcg PO DAILY 10/29/24 04/17/25 lisinopril 10 mg tablet 15 mg PO DAILY 10/29/24 04/17/25 ondansetron 4 mg disintegrating 4 mg translingual Q8H PRN 10/29/24 04/17/25 tablet pioglitazone 45 mg tablet 45 mg PO DAILY 10/29/24 04/17/25 albuterol sulfate 90 mcg/actuation 1 - 2 puff inhalation Q4H PRN 04/17/25 04/17/25 aerosol inhaler wheezing lidocaine 5 % topical patch 1 patch topical DAILY 04/17/25 04/17/25 nitrofurantoin 1 cap PO BID 04/17/25 04/17/25 monohydrate/macrocrystals 100 mg capsule nystatin 100,000 unit/gram topical 1 applic topical 3XD 04/17/25 04/17/25 powder (Klayesta) omeprazole 40 mg capsule,delayed 40 mg PO DAILY 04/17/25 04/17/25 release Previous Rx's ?Medication ?Instructions ?Recorded clopidogrel 75 mg tablet (Plavix) 75 mg PO DAILY #30 tabs 06/20/24 cyclobenzaprine 10 mg tablet 10 mg PO HS PRN muscle spasm and 04/17/25 insomnia #20 tabs Allergies Allergy/AdvReac Type Severity Reaction Status Date / Time atenolol Allergy Mild Verified 04/17/25 03:38 azithromycin Allergy Mild Dyspnea Verified 04/17/25 03:38 ciprofloxacin Allergy Mild Tinnitus Verified 04/17/25 03:38 erythromycin base Allergy Mild Dyspnea Verified 04/17/25 03:38 metoprolol (From Toprol XL) Allergy Mild Depression Verified 04/17/25 03:38 Iodinated Contrast Media Allergy Unknown Verified 04/17/25 03:38 labetalol Allergy Unknown Verified 04/17/25 03:38 morphine Allergy Unknown Verified 04/17/25 03:38 Sulfa (Sulfonamide Allergy Unknown Verified 04/17/25 03:38 Antibiotics) chlorthalidone AdvReac Mild Intolerance Verified 04/17/25 03:38 prednisone AdvReac Mild Stomach Verified 04/17/25 03:38 Upset [facility] Medical History (Updated 04/17/25 @ 04:24 by Siena Zamudio MD) RLS (restless legs syndrome) ?G25.81 - Restless legs syndrome (ICD-10) Sciatica, left side ?M54.32 - Sciatica, left side (ICD-10) Tenosynovitis of wrist ?M65.939 - Unspecified synovitis and tenosynovitis, unspecified forearm (ICD-10) Autoimmune hypothyroidism ?E06.3 - Autoimmune thyroiditis (ICD-10) Type 2 diabetes mellitus with diabetic nephropathy ?E11.21 - Type 2 diabetes mellitus with diabetic nephropathy (ICD-10) Stage 3 chronic kidney disease ?N18.30 - Chronic kidney disease, stage 3 unspecified (ICD-10) Nicotine dependence ?F17.200 - Nicotine dependence, unspecified, uncomplicated (ICD-10) Morbid obesity ?E66.01 - Morbid (severe) obesity due to excess calories (ICD-10) Left ventricular hypertrophy ?I51.7 - Cardiomegaly (ICD-10) TIA (transient ischemic attack) ?G45.9 - Transient cerebral ischemic attack, unspecified (ICD-10) Hyperlipidemia ?E78.5 - Hyperlipidemia, unspecified (ICD-10) BRUNO (acute kidney injury) ?N17.9 - Acute kidney failure, unspecified (ICD-10) Seizure ?R56.9 - Unspecified convulsions (ICD-10) Portal hypertension ?K76.6 - Portal hypertension (ICD-10) Acute on chronic anemia ?D64.9 - Anemia, unspecified (ICD-10) Stroke ?I63.9 - Cerebral infarction, unspecified (ICD-10) Hypertension ?I10 - Essential (primary) hypertension (ICD-10) Scleroderma ?M34.9 - Systemic sclerosis, unspecified (ICD-10) Hirsutism ?L68.0 - Hirsutism (ICD-10) COPD (chronic obstructive pulmonary disease) ?J44.9 - Chronic obstructive pulmonary disease, unspecified (ICD-10) Surgical History History of esophagogastroduodenoscopy (EGD) ?Z98.890 - Other specified postprocedural states (ICD-10) History of colonoscopy with polypectomy ?Z98.890 - Other specified postprocedural states (ICD-10) ?Z86.0100 - Personal history of colon polyps, unspecified (ICD-10) History of section ?Z98.891 - History of uterine scar from previous surgery (ICD-10) History of appendectomy ?Z90.49 - Acquired absence of other specified parts of digestive tract (ICD-10) History of cholecystectomy ?Z90.49 - Acquired absence of other specified parts of digestive tract (ICD-10) Social History Smoking Status: Former smoker How often do you have a drink containing alcohol: never How often do you have six or more drinks on one occasion: Never AUDIT-C Alcohol total score: 0 Non-prescribed substance use: denies use Exam Const: Vital Signs, click to edit/add: Vital Signs - 24 hr 04/17/25 03:11 04/17/25 03:24 Temperature 98.0 F Pulse Rate [Right Pulse Oximeter] 95 Respiratory Rate 18 Respiratory Rate [ Lower Abdomen/Lowe r Back] 18 Blood Pressure [Ri ght Upper Arm] 177/78 H Pulse Oximetry 97 Oxygen Delivery Me thod Room Air Documenting provider has reviewed patient's vital signs: yes Common normals: no apparent distress Other: She is quite irritable, history taking is difficult. Her memory of timeline is inconsistent which is similar to prior episodes as well. Terrible posture with chronic spine curvature. Similar to previous visits. Ambulates into ED with no difficulty or use of any assistive device HENMT: Common normals: moist oral mucous membranes and oropharynx normal Eye: Common normals: conjunctivae normal Conjunctiva: conjunctiva(e) normal Neck & C-Spine: General: normal visual inspection Resp: Common normals: normal respiratory effort Effort & inspection: able to speak in complete sentences GI: Common normals: Normal to inspection, nondistended, normoactive bowel sounds present and soft to palpation Palpation: soft Back & Pelvis: Other: Terrible posture and loss of normal lumbar lordosis but no point bony midline tenderness. Mild tenderness over the SI in paraspinal muscles bilaterally, right slightly more than left. Straight leg lift is negative. Normal strength in both legs. She is able to sit up and lie down without any difficulty on exam. Extremity: Common normals: normal capillary refill and no pedal edema Neuro: Motor exam: strength 5/5 throughout Other: Normal sensation in both legs. Normal pedal pulses and capillary refill in both legs. Plus five out of 5 muscle strength. Equal and symmetric bilaterally Psych: Insight: fair Judgement: fair Skin: Common normals: no rashes or lesions noted General skin exam: no rashes or lesions noted Course Course ED Course: Two prior ED notes reviewed. Has had steroid burst within the last month. I was able to track down prior CT performed 03/11/2004/23/2025. It showed some mild degenerative spine disease but no major abnormality. There were no other intra-abdominal organ findings that were pertinent as well. Physician notes from outpatient encounter indicate that patient should be following up with them an MRI should be considered if they are not finding adequate relief with the previously proposed plan. It does not appears though patient has followed up since that visit. Was called away because of a heart attack on another patient. Patient did become frustrated that she was not getting our full attention. I counseled her prior to leaving the room that we would not be giving her any narcotics and we would not be managing chronic pain. There were no indications to admit her to a hospital or to order an urgent MRI as there are no acute neurological findings. There are no indications to repeat the CT. Reevaluation(s) Reevaluation #1: Patient is requesting to leave. I quickly put in some discharge instructions though I did not get the opportunity to go over these in person with her. She is instructed use Tylenol for her pain, continue the Toradol that was prescribed by her primary care provider and follow-up with them on this ongoing pain. She is not to use the ED for chronic pain issues. She is offered Flexeril to help with sleep at bedtime and encouraged use melatonin as well. No narcotics will be given should she come into the emergency room for this. Vital Signs Vital signs: Initial Vital Signs Respiratory Rate 18 04/17/25 03:11 Vital Signs Respiratory Rate 18 04/17/25 03:11 Temperature 98.0 F 04/17/25 03:24 Pulse Rate 95 04/17/25 03:24 Respiratory Rate 18 04/17/25 03:24 Blood Pressure 177/78 H 04/17/25 03:24 Pulse Oximetry 97 04/17/25 03:24 Oxygen Delivery Method Room Air 04/17/25 03:24 Medical Decision Making Lab Data Labs: Lab Results 08/14/25 08/14/25 Range/Units 03:10 03:33 Urine Color Yellow (Yellow) Urine Appearance Clear (Clear) Urine pH 5.5 (5.0-8.5) Ur Specific [place] 1.020 (1.000-1.030) Urine Protein 2+ A (Negative) Urine Glucose (UA) Trace A (Negative) Urine Ketones Negative (Negative) Urine Blood Negative (Negative) Urine Nitrite Negative (Negative) Urine Bilirubin Negative (Negative) Urine Urobilinogen 0.2 (0.2-1.0) Ur Leukocyte Esterase Trace A (Negative) Urine RBC 0-2 (0-2) Urine WBC 2-5 (0-5) Ur Squamous Epith Cells Few (None-Few) Urine Bacteria Few A (None) SARS-CoV-2 (PCR) Negative SARS-CoV-2 (Negative) Influenza Type A (PCR) Negative PCR FLU A (Negative) Influenza Type B (PCR) Negative PCR FLU B (Negative) RSV (PCR) Negative PCR RSV (Negative) Discharge Plan Discharge Clinical Impression: Chronic low back pain Patient Disposition: Home, Self-Care Condition: Stable Additional Instructions: As we discussed, there are no signs of neurologic or spinal cord emergency going on tonight. I know that your frustrated by this chronic low back pain. Since her primary care provider is treating you with pain medicine, we will not be giving you additional pain medicines in the emergency room. You have also had a steroid burst within the last month and repeating this is not safe for your bones. You need to follow-up with her primary care provider for discussion of a long-term plan. There are no indications to put you in the hospital. An MRI needs to be ordered outpatient. Your insurance will require a prior authorization and possibly an appeal for this which must be completed by primary care provider, not an emergency provider. For pain, I want you taking Tylenol 1000 mg 3 times daily. Add in your Toradol that you were prescribed from your primary care provider. You told me that you do not want to be taking the Tylenol No. 3 for the oxycodone, so I will respect her wishes. I have added in a muscle relaxant, Flexeril 10 mg at bedtime for you to use to help you sleep. I would also recommend that you take 10 mg of melatonin at bedtime as well. If these are not effective for you and you need a stronger sleep aid, please follow-up with your primary care provider regarding this. Reserved the emergency department for sudden emergent changes to your back like loss of function in your legs, complete loss of bowel control, new severe injury or trauma. Please do not use the emergency department for frustration with your chronic pain. Activity Level: Activity as Tolerated Discharge Diet: Regular Prescriptions: New cyclobenzaprine 10 mg tablet 10 mg PO HS PRN (Reason: muscle spasm and insomnia) Qty: 20 1RF No Action omeprazole 40 mg capsule,delayed release(DR/EC) 40 mg PO DAILY nystatin [Klayesta] 100,000 unit/gram powder 1 applic topical 3XD lidocaine 5 % adhesive patch,medicated 1 patch topical DAILY albuterol sulfate 90 mcg/actuation HFA aerosol inhaler 1 - 2 puff INHALATION Q4H PRN (Reason: wheezing) nitrofurantoin monohyd/m-cryst 100 mg capsule 1 cap PO BID clopidogrel [Plavix] 75 mg tablet 75 mg PO DAILY Qty: 30 0RF atorvastatin 80 mg tablet 80 mg PO DAILY levetiracetam 500 mg tablet 500 mg PO BID pioglitazone 45 mg tablet 45 mg PO DAILY Patient Comments: [NO ORIGINAL SIG] (DME) Accu-Chek Guide test strips Strip MISCELLANEOUS 3XD levothyroxine 75 mcg tablet 75 mcg PO DAILY (DME) lancets [Accu-Chek Softclix Lancets] Misc MISCELLANEOUS BID amlodipine 10 mg tablet 10 mg PO DAILY lisinopril 10 mg tablet 15 mg PO DAILY ondansetron 4 mg tablet,disintegrating 4 mg translingual Q8H PRN Patient Comments: [NO ORIGINAL SIG] ferrous gluconate 324 mg (38 mg iron) tablet 324 mg PO DAILY Patient Comments: [NO ORIGINAL SIG] Follow Up/Referrals: MARILY NUÑEZ DO [Primary Care Provider, Family Practice] Stand Alone Forms: [facility] Info Instructions
--- OUTSIDE RECORDS SUMMARY | 2025-04-17 04:15 | XMS_ITS | Clinical Summary ---
Author Organization [facility] Address [address] [place] [address] Care Team Providers Care Promotional Advertising Assistant Name Role Phone None Reported, Pcp Primary Care Provider Unavail able Source Comments Patient records contain information from all sites at [facility]. For routine questions regarding patient records, call [phone] during business hours, M-F 8:00 AM - 5:00 PM Central Time. Record requests for emergency care only can be directed to [phone] at any time.[facility] Allergies Active Allergy Reactions Criticality Noted [...] (GFR) 30 To 44 07/08/2024 Nicotine Dependence Cigarbeatriz e With Nicotine Induced Disorder 07/08/2024 Stroke [...] Communication Department of Community Internal Medicine in [place], [place] [address] [place] [address] Cora Lindsey MPAS, P.A.-C. from Last 3 Months Immunizations Immunization Administration [...] Status Comments Brother 1 Brother 2 [place] Brother 3 Alive Brother 4 [place] Alive Father 1 Michael Brittus Father 2 Michael Hill Alive Sister 1 Sister 2 Gela Stephen Sister 3 Alive Sister 4 Gela Stephen Alive Social History Tobacco Use Types Packs/Day Years Used Date Smoking Tobacco: Some Days Cigarettes Smokeless Tobacco: Never Tobacco Cessation:Counseling Given: Yes Alcohol Use Standard Drinks/Week Comments No 0 (1 standard drink = 0.6 oz pur e alcohol) [facility] Utilities Answer Date Recorded In the past 12 months has th e electric, gas, oil, or water company threatened to shut off services in your [...] your living situation today? 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 CARRIER Gender Identity Female 11/07/2024 8:42 AM GLASS CARRIER Sexual Orientation Straight 11/07/2024 8: 42 AM GLASS CARRIER Last Filed Vital Signs Vital Sign Reading Time Taken Comments Blood Pressure 138/58 01/22/2025 3:19 PM CDT BP taken at PCP appt at [facility] Pulse 89 11/14/2024 2:41 PM CDT [...] years 1-dose series) 2018 COVID-19 Vaccine ( - season) 2024 10/08/2021, 04/09/2021, 03/16/2021 Influenza Vaccine [...] this topic Medical Devices Implanted Type Area Sanitary Chemist Device Identifier Shelf Expiration Date Model / Serial / Lot Lens Acr Sa60at Ant +23.0d - [id number] - [id number] Implanted:Qty : 1 on 12/12/2018 by Doug Graham M.D. at [facility] Ocular Lens Right: Eye [employer] 08/03/2023 SA60AT.230 / [id number] / Procedures Procedure Name Priority Date/Time Associated Diagnosis Comments THYROID-STIMULATING HORMONE-SENSITIVE (S-TSH) Routine 09/06/2024 11:11 AM GLASS CARRIER Autoimmune Thyroid Disease BASIC METABOLIC PANEL, S/P Routine 09/06/2024 11:11 AM GLASS CARRIER Failure Renal Acute (Acute Kidney Injury) (HCC) from Last 3 Months or Most Recently Relevant to Health Maintenance Results * (ABNORMAL) S-TSH (Thyroid-Stimulating Hormone - Sensitive) (09/06/2024 11:11 AM GLASS CARRIER) TSH, Sensitive 11.3(H) 0.3 - 4.2 mIU/L 09/06/2024 1:35 PM GLASS CARRIER OWAT Blood (Blood, Venous) 09/06/2024 11:11 AM GLASS CARRIER 09/06/2024 12:42 PM GLASS CARRIER Mary Raymundo P.A.-C. LAB BLOOD ADD-ON Final Resu lt Performing Organization Address City/[facility]/ZIP Co de Phone Number [facility] [address] [place] [address], [facility] OWAT [facility] [place] [address] [place] [address] * (ABNORMAL) Basic Metabolic Panel (09/06/2024 11:11 AM GLASS CARRIER) Potassium, P 4.5 3.6 - 5.2 mmol/L 09/06/2024 1:36 PM GLASS CARRIER OWAT Sodium, P 135 135 - 145 mmol/L 09/06/2024 1:36 PM GLASS CARRIER OWAT Chloride, P 100 98 - 107 mmol/L 09/06/2024 1:36 PM GLASS CARRIER OWAT Bicarbonate, P 25 22 - 29 mmol/L 09/06/2024 1:36 PM GLASS CARRIER OWAT Anion Gap, P 10 7 - 15 09/06/2024 1:36 PM GLASS CARRIER OWAT BUN (Blood Urea Nitrogen), P 29(H) 6 - 21 mg/dL 09/06/2024 1:36 PM GLASS CARRIER OWAT Creatinine 1.53(H) 0.59 - 1.04 mg/dL 09/06/2024 1:36 PM GLASS CARRIER OWAT Estimated GFR (eGFR) 37(L) >=60 mL/min/BSA 09/06/2024 1:36 PM GLASS CARRIER OWAT Comment: Estimated GFR calculated using the 2020 CKD_EPI creatinine equation. Calcium, Total, P 9.7 8.8 - 10.2 mg/dL 09/06/2024 1:36 PM GLASS CARRIER OWAT Glucose, P 221(H) 70 - 140 mg/dL 09/06/2024 1:36 PM GLASS CARRIER OWAT Blood (Blood, Venous) 09/06/2024 11:11 AM GLASS CARRIER 09/06/2024 12:42 PM GLASS CARRIER us Mary Raymundo P.A.-C. LAB BLOOD ADD-ON Final Resu lt [facility] [address] [place] [address], [place] OWAT [facility] [place] [address] [place] [address] from Last 3 Months or Most Recently Relevant to Health Maintenance Insurance [employer] [facility] Care Teams Promotional Advertising Assistant Relationship Specialty Start Date End Date None Reported, Pcp PCP - General Family Medicine 02/27/25
--- OUTSIDE RECORDS SUMMARY | 2025-04-17 04:15 | XMS_ITS | Encounter Summary ---
Author Organization [facility] Address [address] [place] [address] Care Team Providers Care [employer] Worker Name Role Phone None Reported, Pcp Primary Care Provider Unavail able Encounter Details Date Type Department Care Team (Late st Contact Info) Description 02/27/2025 Clinical Communication Department of [facility] in [place], [place] [address] [place] [address] Cora Lindsey MPAS, P.A.-C. [address] [place] [id number] Social History Tobacco Use Types Packs/Day Years Used Date Smoking Tobacco: Some Days Cigarettes Smokeless Tobacco: Never Alcohol Use Standard Drinks/Week Comments No 0 (1 standard drink = 0.6 oz pur e alcohol) [facility] Utilities Answer Date Recorded In the past 12 months has e [employer], gas, oil, or water [employer] threatened to shut off services in your [...] Sex Assigned at Female 11/07/2024 8:42 AM [employer] Legal Sex Female 4:23 PM [employer] Gender Identity Female 11/07/2024 8:42 AM [employer] Sexual Orientation Straight 11/07/2024 8: 42 AM [employer] documented as of this encounter Miscellaneous Notes [...] on filedocumented in this encounter Care Teams Be[employer] Worker Relationship Specialty Start Date End Date None Reported, Pcp PCP - General Family Medicine 02/27/25 documented as of this encounter
--- OUTSIDE RECORDS SUMMARY | 2025-04-17 04:15 | XMS_ITS | Clinical Summary ---
Author Organization [employer] Address [address] [place] [address] Care Team Providers Care Transfer Table Operator Helper Name Role Phone Karissa Childs MD Unavailable [phone] Orlando Concepcion DO Primary Care Provider [phone] Giovanna Diez PharmD Unavailable [phone] Allergies Active Allergy Reactions Criticality Noted Date [...] right eye at bedtime. 02/06/20 24 Active lancetsIndication s:Type 2 diabetes mellitus with other skin complication, without long-term current use of insulin (HC) Dispense item covered by pt ins. E11.65 IDDM type II, uncontrolled - Test 3 times/day. 100 Each 4 8:53 AM CDT 06/07/20 24 Active atorvastatin (LIPITOR) 80 mg tabletIndications :Cerebrovascular accident (CVA), unspecified mechanism (HC) Take 1 Tablet (80 mg) by mouth at bedtime. 90 Tablet 3 07/05/20 24 Active famotidine (PEPCID) 40 mg tablet Take 40 mg by mouth once daily if needed for Heartburn or GI Upset. 05/14/20 24 Active pioglitazone (ACTOS) 45 mg tabletIndications :Type [...] 07/29/20 24 Active meclizine (ANTIVERT) 25 mg tabletIndications :Dizziness Take 1 Tablet (25 mg) by mouth 3 times daily if needed for Vertigo. 30 Tablet 09/02/20 24 Active ALPRAZolam (XANAX) 0.25 mg tabletIndications :Dizziness [...] 09/17/19 25 Active levothyroxine (SYNTHROID) 75 mcg tabletIndications :Autoimmune [...] 10/25/19 25 Active docusate (COLACE) 100 mg capsuleIndication s:Constipation, acute Take 1 Capsule (100 mg) by mouth 2 times daily if needed for Constipation. 180 Capsule 3 10/28/19 25 Active clopidogreL (PLAVIX) 75 mg tabletIndications :Cerebrovascular accident (CVA) due to stenosis of cerebral artery (HC) Take 1 Tablet (75 mg) by mouth once daily in the morning. 90 Tablet 3 11/06/19 25 Active lisinopriL 10 mg tabletIndications :Resistant hypertension Take 1 Tablet (10 mg) by mouth once daily. 90 Tablet 3 11/26/19 25 Active amLODIPine 10 mg tabletIndications :Hypertension Take 1 Tablet (10 mg) by mouth once daily. 90 Tablet 3 12/06/19 25 Active lisinopriL 5 mg tabletIndications :Resistant hypertension Take 1 Tablet (5 mg) by mouth once daily. Take with 10 mg lisinopril 90 Tablet 3 12/10/19 25 Active levETIRAcetam 500 mg tabletIndications :Seizure (HC) TAKE 1 TABLET(500 MG) BY MOUTH TWICE DAILY 180 Tablet 01/29/20 25 Active ferrous gluconate 324 mg (38 mg iron) tabletIndications :Anemia, unspecified type TAKE 1 TABLET BY MOUTH EVERY DAY WITH A MEAL 90 Tablet 3 02/26/20 25 Active fluticasone (50 mcg per actuation) nasal solution (FLONASE)Indicati ons:Sinusitis, unspecified chronicity, unspecified location Inhale 2 Sprays in both nostrils once daily. 16 g 03/21/20 25 Active albuterol HFA (PRO-AIR; VENTOLIN; PROVENTIL) 90 mcg/actuation inhalerIndication s:Wheezing Inhale 1-2 Puffs by mouth every 4 hours if needed for Shortness Of Breath or Wheezing. 3 Each 3 03/27/20 25 Active acetaminophen-cod eine (TYLENOL #3) 300-30 mg per tablet TAKE 1-2 TABLETS BY MOUTH EVERY 4-6HR NEEDED 03/28/20 25 Active oxyCODONE (ROXICODONE) 5 mg immediate release tabletIndications :Severe back pain Take 1 Tablet (5 mg) by mouth every 6 hours if needed for Pain. 20 Tablet 03/31/20 25 Active LORazepam 1 mg tabletIndications :Claustrophobia Take 1 Tablet (1 mg) by mouth one time for 1 dose. 2 Tablet 04/03/20 25 Active Additional Information Patient not taking.Reported on 04/12/2025 oxyCODONE-acetami nophen (Percocet) 5-325 mg per tabletIndications :Severe back pain Take 1 Tablet by mouth every 4 hours if needed for Pain. Max acetaminophen dose: 4000mg in 24 hrs. 5 Tablet 04/04/20 25 Active lidocaine 5 % topical patchIndications: Lumbar radiculopathy,Sev ere back pain Apply on dry, clean, hairless skin. Apply 1 patch to painful area of skin for up to to 12 hours within 24 hour period. 30 Patch 11 04/07/20 25 Active diclofenac topical (VOLTAREN) 1 % gelIndications:Rose mbar radiculopathy,Sev ere back pain Apply 4 g topically to affected area(s) four times daily. 150 g 04/07/20 25 Active Additional Information Patient not taking.Reported on 04/12/2025 omeprazole (PRILOSEC) 40 mg Delayed-Release capsuleIndication s:Chronic GERD Take 1 Capsule (40 mg) by mouth once daily before a meal. 90 Capsule 04/10/20 25 Active ketoconazole 2 % creamIndications: Candidiasis, intertrigo Apply topically to affected area(s) two times daily. 60 g 04/12/20 25 Active nystatin powder (MYCOSTATIN) powderIndications :Candidiasis, intertrigo Apply 1 Strip topically to affected area(s) three times daily. 60 g 04/15/20 25 Active ondansetron (ZOFRAN ODT) 4 mg disintegrating tabletIndications :Nausea Place 1 Tablet (4 mg) on the tongue every 8 hours if needed for Nausea/Vomiting. 30 Tablet 04/15/20 25 Active ondansetron (ZOFRAN ODT) 4 mg disintegrating tabletIndications :Nausea Place 1 Tablet (4 mg) on the tongue every 8 hours if needed for Nausea/Vomiting. 30 Tablet 07/09/20 24 025 Discontin ued(Reord er (E-cancel not sent)) ketoconazole 2 % creamIndications: Tinea corporis Apply topically to affected area(s) two times daily. 60 g 12/25/19 25 025 Discontin ued(*Med complete/ Regimen complete/ Level of care change) doxycycline 100 mg tabletIndications :Sinusitis, unspecified chronicity, unspecified location Take 1 Tablet (100 mg) by mouth two times daily for 5 days. 10 Tablet 03/21/20 25 025 guaiFENesin (MUCINEX) 600 mg Extended-Release tabletIndications :Wheezing,Sinusit is, unspecified chronicity, unspecified location Take 1 Tablet (600 mg) by mouth two times daily for 5 days. 10 Tablet 03/21/20 25 025 benzonatate (TESSALON) 200 mg capsuleIndication s:Cough, unspecified type Take 1 Capsule (200 mg) by mouth 3 times daily if needed for Cough. 21 Capsule 03/27/20 25 025 Discontin ued(*Med complete/ Regimen complete/ Level of care change) cyclobenzaprine (FLEXERIL) 10 mg tablet take 1 tablet by mouth twice daily as needed for muscle spasms 03/30/20 25 025 Discontin ued(*Christiano rgic/Adve rse Rxn/Side Effects) ondansetron (ZOFRAN ODT) 4 mg disintegrating tabletIndications :Nausea Place 1 Tablet (4 mg) on the tongue every 8 hours if needed for Nausea/Vomiting. 30 Tablet 03/31/20 25 025 Discontin ued(Reord er (E-cancel not sent)) cephalexin 500 mg capsuleIndication s:UTI (urinary tract infection), uncomplicated Take 1 Capsule (500 mg) by mouth two times daily for 7 days. 14 Capsule 08/01/21 25 025 Additional Information Patient not taking.Reported on 04/12/2025 nitrofurantoin macrocrystals/mon ohydrate (MACROBID) 100 mg capsuleIndication s:UTI (urinary tract infection), uncomplicated Take 1 Capsule (100 mg) by mouth two times daily for 5 days. 10 Capsule 04/10/20 25 025 Active Problems Problem Noted Date [...] luis, with unspecified nicotine-induced disorders 07/08/2024 Stage 3 chronic kidney disease 07/08/2024 Overview (04/07/2025): AI Summary: The patient had a complex medical history that included mild cognitive impairment, CVA/TIA, seizure disorder treated with Keppra, hypertension, type 2 diabetes mellitus, and stage 3 chronic kidney disease; there was no history of anemia prior to a stroke in June 2024. The patient was admitted on 08/21/2024 with possible TIA and on 09/12/2024 for acute on chronic anemia potentially due to a gastrointestinal bleed. The patient was also diagnosed with hypertensive chronic kidney disease with stage 1 through stage 4 chronic kidney disease, or unspecified chronic kidney disease. 12/27/24: Cr 1.31 mg/dL 12/27/24: GFR 45 mL/min/1.73m2 10/13/24: BUN 27 mg/dL On meds: ferrous gluconate, lisinopril, timolol Recent encounter dx: 12/27/24: Appointment - [facility] 12/20/24: Appointment - [facility] 12/06/24: Appointment - [facility] 11/29/24: Appointment - [facility] 11/25/24: Appointment - [facility] Recent notes: 11/25/24: Progress Notes by DO Keira Kiser. [+] Stage 3b chronic kidney disease (HC) N18.32 10/24/24: ED Provider Note by Frida Hampton PA ... [+] ? Stage 3b chronic kidney disease (HC) N18.32 10/21/24: ED Provider Note by CLAUDIO Lamb ... [+] ? Stage 3b chronic kidney disease (HC) 07/08/2024 10/18/24: Progress Notes - VIRTUAL VISIT by DO Keira Kiser. [+] Stage 3b chronic kidney disease (HC) 09/14/24: Discharge Summary by Bradley Alvarenga MD ... [+] Aurea Hauser, a 64-year-old female with a complex medical history including mild cognitive impairment, CVA/TIA, seizure disorder on Keppra, hypertension, type 2 diabetes mellitus, and stage 3 chronic kidney disease, was admitted on September 12, 2024, for acute on chronic anemia potentially due to a gastrointestinal bleed. 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 Diagnosed with Autoimmune hypothyroidism/ Pascual's thyroiditis. Does often forget to take thyroid medication. 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 She presented to the ED in 10/2024 for evaluation of lightheadedness and abdominal pain and in 10/21/2024 for possible sinus infection and was admitted on 09/29/2024 with acute on chronic anemia. She reported numbness in her toes and was prescribed pioglitazone for diabetes. 12/24/24: A1c 6.8 % OF TOTAL HGB 12/27/24: Cr 1.31 mg/dL On meds: pioglitazone Recent encounter dx: 12/24/24: Appointment - [facility] 10/09/24: Appointment - [facility] 09/17/24: Appointment - [facility] 09/16/24: Appointment - [facility] 08/21/24: Discharge - [facility], 328, 328 / 1 Recent notes: 12/24/24: Progress Notes by Orlando Concepcion DO ... [+] Type 2 diabetes mellitus with diabetic nephropathy, without long-term current use of insulin (HC) E11.21 POCT Hemoglobin A1C Monitoring 11/14/24: Miscellaneous Notes - Assessment & Plan Note by LESTER Rodrigues, P.A.-C. (from [facility]) ... [+] Associated Problem(s): Diabetes Mellitus Type 2 With Diabetic Nephropathy (HCC) 10/24/24: ED Provider Note by CLAUDIO Davies ... [+] ? Type 2 diabetes mellitus with diabetic nephropathy (HC) E11.21 10/21/24: ED Provider Note by CLAUDIO Lamb ... [-] Aurea Hauser is a 64 y.o. female with a pertinent past medical history of hypertension, CVA, CKD, diabetes mellitus type 2, anemia who presents to the emergency department today for evaluation of possible sinus infection. ... [+] ? Type 2 diabetes mellitus with diabetic nephropathy (HC) 07/08/2024 10/13/24: ED Provider Note by Lisbeth Key MD ... [+] Type 2 diabetes mellitus with diabetic nephropathy (HC) Tenosynovitis of wrist 12/07/2015 Sciatica, left side 08/18/2015 Dyspepsia 08/18/2015 Restless leg syndrome 08/18/2015 Palpitations 05/06/2015 Body mass index (BMI) 40.0-44.9, adult 4 Overview (12/24/2024): Body Mass Index 40.0-44.9, Adult Psoriasis 04/03/2013 Benign paroxysmal positional vertigo 02/20/2006 [...] take insulin BRUNO (acute kidney injury) 05/16/2022 Abnormal liver function tests 04/03/2013 04/07/2025 Other atopic dermatitis and related conditions 04/10/2006 09/26/2022 Chronic airway obstruction, not elsewhere classified 11/16/2005 07/03/2015 Encounters Date Type Department Care Team Description 04/15/2025 1:45 PM CDT Ancillary Procedure [facility] [address] [place] [address] Arrived 04/15/2025 12:50 PM CDT Office Visit [facility] [address] [place] [address] Orlando Concepcion, DO Medication Management 04/15/2025 Travel 04/12/2025 3:00 PM CDT Office Visit [facility] [address] [facility] [place] [address] [employer] PA Back Pain; Derm Problem 04/12/2025 Travel 04/08/[address] [facility] [address] [place] [address] Orlando Concepcion DO Prior Authorization (lidocaine 5 % topical patch - APPROVED through 09/03/2025) 04/07/2025 2:30 PM CDT Office Visit [facility] [address] [place] [address] Orlando Concepcion DO Back Pain 04/07/2025 Travel 04/07/[address] [facility] [address] [place] [address] Orlando Concepcion DO Error-please disregard 04/04/2025 Nurse Triage [address] [place] [address] Orlando Concepcion DO Fatigue 03/31/2025 11:00 AM CDT Ancillary Procedure [address] [address] 03/31/2025 10:15 AM CDT Ancillary Procedure [address] [address] 03/31/2025 9:20 AM CDT Office Visit [address] [address] Orlando Concepcion DO Pain (I don't know, my back, abdomen, it all hurts ); ER Follow up 03/31/2025 Travel 03/21/2025 1:45 PM CDT Ancillary Procedure [address] [address] 03/21/2025 12:50 PM CDT Office Visit [address] [address] Orlando Concepcion DO URI (Congestion, cough and wheezing x week/03/20 negative COVID-19 test/) 03/21/[address] [address] Orlando Concepcion DO Refill Request (Fluticasone (50 Mcg Per Actuation) Nasal) 03/21/2025 Travel 02/24/[address] [facility] [address] [place] [address] Orlando Concepcion DO Refill Request (Ferrous Gluconate) 01/29/[address] [facility] [address] [place] [address] Orlando Concepcion DO Refill Request 01/25/[address] [facility] [address] [place] [address] Orlando Concepcion DO Refill Request (Levetiracetam) 01/22/2025 3:45 PM CDT Ancillary Procedure [facility] [address] [place] [address] 01/22/2025 2:55 PM CDT Office Visit [facility] [address] [place] [address] Orlando Concepcion DO Abdominal Pain; Concerns (States she talk to someone at the social security office and he was going to be requesting info on the patient's inability to work, might need office notes stating that she has an off gait and unable to lift, etc. Did have an OT eval yesterday at [facility] ) 01/22/2025 Travel 01/18/2025 Travel from Last 3 Months Immunizations Immunization Administration Dates Next Due COVID-19 vaccine ([employer] NTGoodyTag 30mcg/0.3mL) 12YO+ WING-SUCROSE PF, MDV 10/08/2021 COVID-19 vaccine ([employer]Bio[employer] 30mcg/0.3mL) P F, MDV 04/09/2021,03/16/2021 Td (Age [...] Cessation:Ready to Q uit: No; Counseling Given: Yes Comments:4-5 cigs per day [...] Sex Assigned at Female 08/31/2024 1:37 PM OPTICAL STORE MANAGER Legal Sex Female 6:39 AM OPTICAL STORE MANAGER Gender Identity Female 08/31/2024 1:37 PM OPTICAL STORE MANAGER Sexual Orientation Straight 08/31/2024 1: 37 PM OPTICAL STORE MANAGER Occupation Industry Job Start Date Job End [...] Sign Reading Time Taken Comments Blood Pressure 138/50 04/15/2025 1:14 PM CDT Pulse 88 04/15/2025 12:51 PM CDT Temperature 36 C (96.8 F) 04/12/2025 3:12 PM CDT Respiratory Rate 12 04/12/2025 3:12 PM CDT Oxygen Saturation 97% 04/15/2025 12: 51 PM CDT Inhaled Oxygen Concentration - - Weight 94.8 kg (208 lb 14.4 oz) 04/12/2025 3:12 PM CDT Height 149 cm (4' 10.66) 01/07/2025 1:16 PM CDT Body Mass Index 42.68 01/07/2025 1:16 PM CDT Plan of Treatment Upcoming Encounters Date Type Department Care Team (Late st Contact Info) Description 04/24/2025 1:00 PM CDT Ancillary Procedure [facility] [address] [place] [address] 04/29/2025 1:00 PM CDT Office Visit [facility] [address] [place] [address] Mike Foy MD [address] [place] [address] 07/08/2025 2:05 PM OPTICAL STORE MANAGER Office Visit [facility] [address] [place] [address] Orlando Concepcion DO [address] [place] [address] 10/09/2025 2:30 PM OPTICAL STORE MANAGER Office Visit [facility] [address] [place] [address] Orlando Concepcion DO [address] [place] [address] Health Maintenance Due Date Last Done Comments [...] Name Priority Date/Time Associated Diagnosis Comments XR HIP 1 VIEW W PELVIS LEFT Routine 04/15/2025 1:44 PM CDT Hip pain, left HEMOGLOBIN Routine 04/07/2025 3:38 PM CDT Anemia of unknown etiology URINALYSIS MACROSCOPIC - [facility] ONLY POC DIP ([facility]) Routine 04/07/2025 3:37 PM CDT Dysuria URINALYSIS MICROSCOPIC STAT 04/07/2025 3:36 PM CDT Dysuria URINE CULTURE Routine 04/07/2025 3:36 PM CDT Dysuria BASIC METABOLIC PANEL Routine 03/31/2025 10:29 AM CDT Severe back pain CT ABDOMEN PELVIS STONE PROTOCOL WO STAT 03/31/2025 10:26 AM CDT Severe back pain XR SPINE LUMBAR 3 VIEWS Routine 03/31/2025 10:18 AM CDT Severe back pain XR CHEST 2 VIEWS PA AND LATERAL [...] 3:4 8 PM CDT Abdominal pain, epigastric LIPID PANEL W REFLEX MEASURED LDL Today 10/13/2024 4:05 PM OPTICAL STORE MANAGER TIA (transient ischemic attack) COLONOSCOPY 09/13/2024 7:[address] CHEST ABDOMEN PELVIS WO STAT 09/10/2024 7:40 PM OPTICAL STORE MANAGER ANTI HCV Routine 05/11/2022 11:13 AM CDT Cellulitis of skin XR MAMMO BILAT DIAG FFDM (IA) Routine 12/05/2007 9:36 AM CDT Enlargement Of Lymph Nodes from Last 3 Months or Most Recently Relevant to Health Maintenance Results * XR HIP 1 VIEW W PELVIS LEFT (04/15/2025 1:44 PM CDT) Anatomical Region Laterality Modality HIPS, HIPL, Pelvis Computed Radi ography 04/15/2025 2:48 PM CDT Narrative 04/15/2025 2:48 PM CDT For Patients: As a result of the Cures Act, medical imaging exams and procedure reports are released immediately into your electronic medical record. You may view this report before your referring provider. If you have questions, please contact your health care provider. Indication: Hip pain Technique: Pelvis and left hip 2 views Comparison: Abdomen films 01/22/2025 Findings: Mild narrowing and spurring at both hips. No fracture. Chronic soft tissue densities on the left. Impression: Mild degenerative joint disease left hip. Dictated by Carloz Arroyo MD @ 04/15/2025 2:48:13 PM (Electronically Signed) Procedure Note Carloz Arroyo MD - 04/15/2025 For Patients: As a result of the s Act, medical imagingexams and procedure reports are released immediately into your electronicmedical record. You may view this report before your referring provider.If you have questions, please contact your health care provider. Indication: Hip pain Technique: Pelvis and left hip 2 views Comparison: Abdomen films 01/22/2025 Findings: Mild narrowing and spurring at both hips. No fracture. Chronic soft tissuedensities on the left. Impression: Mild degenerative joint disease left hip. Dictated by Carloz Arroyo MD @ 04/15/2025 2:48:13 PM (Electronically Signed) us Adei Latrellqra DO GENERAL IMAGING Final Result * HEMOGLOBIN (04/07/2025 3:38 PM CDT) Only the most recent of2 resultswithin the time period is included. HEMOGLOBIN 13.2 11.7 - 15.5 g/dL [facility] Blood BLOOD SPECIMEN / Unknown 04/07/2025 3:38 PM CDT 04/07/2025 3:38 PM CDT us Adei Latrellq DO HEMATOLOGY Final Result [employer] [facility] [address] [place] [address], [place] [phone] [facility] [address] [place] [address] * (ABNORMAL) POCT Urinalysis Dipstick Only [[id number]] (04/07/2025 3:37 PM CDT) PH 5.5 5.0 - 8.0 [facility] SPECIFIC GRAVITY 1.020 1.001 - 1.035 [facility] GLUCOSE NEGATIVE NEGATIVE [facility] BILIRUBIN NEGATIVE NEGATIVE [facility] KETONES NEGATIVE NEGATIVE [facility] OCCULT BLOOD NEGATIVE NEGATIVE [facility] PROTEIN 2+(A) NEGATIVE [facility] NITRITE NEGATIVE NEGATIVE [facility] LEUKOCYTE ESTERASE TRACE(A) NEGATIVE [facility] Urine URINE SPECIMEN / Unknown 04/07/2025 3:37 PM CDT 04/07/2025 3:37 PM CDT us Adedariel Samsq DO URINE Final Result [facility] [address] [place] [address], [place] [phone] [facility] [address] [place] [address] * (ABNORMAL) URINALYSIS MICROSCOPIC [42752.1] - STAT (04/07/2025 3:36 PM CDT) Only the most recent of2 resultswithin the time period is included. RBC 0-2 0-2, None Seen /HPF 04/07/2025 11:10 PM CDT [facility] WBC 6-10(A) 0-2, 3-5, None Seen /HPF 04/07/2025 11:10 PM CDT [facility] BACTERIA None Seen None Seen, Rare, Few Bacteria/ HPF 04/07/2025 11:10 PM CDT [facility] EPITHELIAL CELLS None Seen None Seen, Few Epi/HPF 04/07/2025 11:10 PM CDT [facility] HYALINE CASTS 0-2 0-2, 3-5 /LPF 04/07/2025 11:10 PM CDT [facility] Urine URINE SPECIMEN / Unknown Non-Blood / Unknown 04/07/2025 3:36 PM CDT 04/07/2025 3:36 PM CDT us Orlando Concepcion DO URINE Final Result [facility] [address] [place] [address], * URINE CULTURE [03178.2] (04/07/2025 3:36 PM CDT) Only the most recent of2 resultswithin the time period is included. CULTURE <10,000 CFU/mL multiple organisms 04/09/2025 9:38 AM CDT [facility] Urine URINE SPECIMEN / Unknown Non-Blood / Unknown 04/07/2025 3:36 PM CDT 04/07/2025 3:36 PM CDT us Adei Latrellqra DO MICROBIOLOGY Final Result [facility] [address] [place] [address], * (ABNORMAL) BASIC METABOLIC PANEL (03/31/2025 10:29 AM CDT) GLUCOSE 133(H) 65 - 99 mg/dL [facility] Comment: Fasting reference interval For someone without known diabetes, a glucose value >125 mg/dL indicates that they may have diabetes and this should be confirmed with a follow-up test. UREA NITROGEN (BUN) 41(H) 7 - 25 mg/dL [facility] CREATININE 1.47(H) 0.50 - 1.05 mg/dL [facility] EGFR 39(L) > OR = 60 mL/min/1.7 3m2 [facility] BUN/CREATININE RATIO 28(H) 6 - 22 (calc) [facility] SODIUM 140 135 - 146 mmol/L [facility] POTASSIUM 4.5 3.5 - 5.3 mmol/L [facility] CHLORIDE 102 98 - 110 mmol/L [facility] CARBON DIOXIDE 29 20 - 32 mmol/L [facility] ELECTROLYTE BALANCE 9 7 - 17 mmol/L (calc) [facility] CALCIUM 10.0 8.6 - 10.4 mg/dL [facility] Blood BLOOD SPECIMEN / Unknown 03/31/2025 10:29 AM CDT 03/31/2025 10:30 AM CDT us Adei Latrellq DO CHEMISTRY Final Result [facility] [address] [place] [address], [place] [phone] [facility] [address] [place] [address] * CT ABDOMEN PELVIS STONE PROTOCOL WO (03/31/2025 10:26 AM CDT) Anatomical Region Laterality Modality Abdomen, Pelvis, AORTA, LIVER, SPLEEN Computed Tomography 03/31/2025 10:5 2 AM CDT Impressions 03/31/2025 10:52 AM CDT 1. No evidence of nephrolithiasis or hydronephrosis. 2. Left renal cortical atrophy with exophytic soft tissue nodule measuring 12 millimeters at the upper pole. Recommend outpatient renal MRI for further characterization. 3. Colonic diverticulosis. 4. Small pericardial effusion. This is present on the September 2024 examination although this is slightly increased in size over the interval. Please note that all CT scans at this facility use dose modulation, iterative reconstruction, and/or weight-based dosing when appropriate to reduce radiation dose to as low as reasonably achievable. Dictated by Syd Florian MD @ 03/31/2025 10:52:58 AM (Electronically Signed) Narrative 03/31/2025 10:52 AM CDT For Patients: As a result of the Cures Act, medical imaging exams and procedure reports are released immediately into your electronic medical record. You may view this report before your referring provider. If you have questions, please contact your health care provider. INDICATION: Severe back pain, abdominal and flank pain. TECHNIQUE: Axial images were obtained from the diaphragm to the pubic symphysis. Reformats were obtained in the coronal and sagittal plane. IV Contrast: None Oral Contrast: None COMPARISON: Chest, abdomen and pelvis CT 09/10/2024 FINDINGS: Lower chest: No acute consolidation. Small pericardial effusion. Liver: Unremarkable. Normal in size and attenuation. No masses. Gallbladder and bile ducts: Status post cholecystectomy. Spleen: Unremarkable. Normal in size without mass. Pancreas: Unremarkable. No mass or inflammation. Adrenal glands: Indeterminate left adrenal nodule at the medial limb measuring 8 millimeters although stable compared to the prior exam. Kidneys: Calcification within the right kidney although this appears to be vascular. No evidence of nephrolithiasis or hydronephrosis. Prominent left renal cortical atrophy with exophytic soft tissue density nodule at the upper pole measuring 12 millimeters (series 10, image 92). This is more prominent than on the prior examination. Vasculature: Atherosclerosis without abdominal aortic aneurysm. GI tract: The stomach is unremarkable. No dilated loops of large or small intestine. Colonic diverticulosis without localizing inflammation. Pelvis: Unremarkable. Bones: Mild degenerative disc disease thoracolumbar spine. Procedure Note Syd Florian MD - 03/31/2025 For Patients: As a result of the Cures Act, medical imagingexams and procedure reports are released immediately into your electronicmedical record. You may view this report before your referring provider.If you have questions, please contact your health care provider. INDICATION: Severe back pain, abdominal and flank pain. TECHNIQUE: Axial images were obtained from the diaphragm to the pubic symphysis. Reformats were obtained in the coronal and sagittal plane. IV Contrast: None Oral Contrast: None COMPARISON: Chest, abdomen and pelvis CT 09/10/2024 FINDINGS: Lower chest: No acute consolidation. Small pericardial effusion. Liver: Unremarkable. Normal in size and attenuation. No masses. Gallbladder and bile ducts: Status post cholecystectomy. Spleen: Unremarkable. Normal in size without mass. Pancreas: Unremarkable. No mass or inflammation. Adrenal glands: Indeterminate left adrenal nodule at the medial limbmeasuring 8 millimeters although stable compared to the prior exam. Kidneys: Calcification within the right kidney although this appears to bevascular. No evidence of nephrolithiasis or hydronephrosis. Prominent leftrenal cortical atrophy with exophytic soft tissue density nodule at theupper pole measuring 12 millimeters (series 10, image 92). This is moreprominent than on the prior examination. Vasculature: Atherosclerosis without abdominal aortic aneurysm. GI tract: The stomach is unremarkable. No dilated loops of large or smallintestine. Colonic diverticulosis without localizing inflammation. Pelvis: Unremarkable. Bones: Mild degenerative disc disease thoracolumbar spine. IMPRESSION: 1. No evidence of nephrolithiasis or hydronephrosis. 2. Left renal cortical atrophy with exophytic soft tissue nodule [id number] millimeters at the upper pole. Recommend outpatient renal MRI forfurther characterization. 3. Colonic diverticulosis. 4. Small pericardial effusion. This is present on the September 2024examination although this is slightly increased in size over theinterval. Please note that all CT scans at this facility use dose modulation,iterative reconstruction, and/or weight-based dosing when appropriate toreduce radiation dose to as low as reasonably achievable. Dictated by Syd Florian MD @ 03/31/2025 10:52:58 AM (Electronically Signed) us Orlando Concepcion DO CT Final Result * XR SPINE LUMBAR 3 VIEWS (03/31/2025 10:18 AM CDT) Anatomical Region Laterality Modality LUMBAR SPINE Computed Radiogr aphy 04/01/2025 7:22 PM CDT Impressions 04/01/2025 7:22 PM CDT 1. No acute osseous injuries or abnormalities are noted. Dictated by Karlos Malik MD @ 04/01/2025 7:22:03 PM Dictated by: Karlos Malik MD @ 04/01/2025 19:22:05 (Electronically Signed) Narrative 04/01/2025 7:22 PM CDT For Patients: As a result of the Cures Act, medical imaging exams and procedure reports are released immediately into your electronic medical record. You may view this report before your referring provider. If you have questions, please contact your health care provider. INDICATION: Severe back pain TECHNIQUE: Lumbar spine radiograph 3 views COMPARISON: 04/22/2024 FINDINGS: Bone: No acute fractures or aggressive bone lesions are identified. Alignment is normal. Disc: Moderate degenerative disc disease is present at L5-S1. Mild degenerative disc disease is seen in the remainder of the lumbar spine without change. Severe bilateral facet osteoarthritis is present at L5-S1 Soft tissue: Unremarkable. No radiopaque foreign bodies are seen. Severe atherosclerotic calcifications of the abdominal aorta are present. Surgical clips are noted in the right upper quadrant from prior cholecystectomy. Procedure Note Karlos Malik MD - 04/01/2025 For Patients: As a result of the Cures Act, medical imagingexams and procedure reports are released immediately into your electronicmedical record. You may view this report before your referring provider.If you have questions, please contact your health care provider. INDICATION: Severe back pain TECHNIQUE: Lumbar spine radiograph 3 views COMPARISON: 04/22/2024 FINDINGS: Bone: No acute fractures or aggressive bone lesions are identified.Alignment is normal. Disc: Moderate degenerative disc disease is present at L5-S1. Milddegenerative disc disease is seen in the remainder of the lumbar spinewithout change. Severe bilateral facet osteoarthritis is present at L5-S1 Soft tissue: Unremarkable. No radiopaque foreign bodies are seen. Severeatherosclerotic calcifications of the abdominal aorta are present.Surgical clips are noted in the right upper quadrant from priorcholecystectomy. IMPRESSION: 1. No acute osseous injuries or abnormalities are noted. Dictated by Karlos Malik MD @ 04/01/2025 7:22:03 PM Dictated by: Karlos Malik MD @ 04/01/2025 19:22:05 (Electronically Signed) us Adei Jamey DO GENERAL IMAGING Final Result * XR CHEST 2 VIEWS PA AND [...] @ 03/21/2025 3:01:53 PM (Electronically Signed) us Orlando Concepcion DO GENERAL IMAGING Final Result * GLUCOSE, RANDOM (01/22/2025 3:56 PM CDT) GLUCOSE, RANDOM 119 <140 mg/dL [facility] Blood BLOOD SPECIMEN / Unknown 01/22/2025 3:56 PM CDT 01/22/2025 3:56 PM CDT Orlando Samsvargas DO CHEMISTRY Final Result [facility] [address] [place] [address], [place] [phone] [facility] [address] [place] [address] * LIPASE (01/22/2025 3:56 PM CDT) Pathologist [facility] LIPASE 29 7 - 60 U/L [facility] Blood BLOOD SPECIMEN / Unknown 01/22/2025 3:56 PM CDT 01/22/2025 3:56 PM CDT Orlando Concepcion DO CHEMISTRY Final Result Performing Organization Address [facility] Co de Phone Number [employer] [facility] [address] [place] [address], [place] [phone] [facility] [address] [place] [address] * HEPATIC FUNCTION PANEL (01/22/2025 3:56 PM CDT) PROTEIN, TOTAL 7.0 6.1 - 8.1 g/dL [facility] ALBUMIN 4.0 3.6 - 5.1 g/dL [facility] GLOBULIN 3.0 1.9 - 3.7 g/dL (calc) [facility] ALBUMIN/GLOBULIN RATIO 1.3 1.0 - 2.5 (calc) [facility] BILIRUBIN, TOTAL 0.2 0.2 - 1.2 mg/dL [facility] BILIRUBIN, DIRECT 0.0 < OR = 0.2 mg/dL [facility] BILIRUBIN, INDIRECT 0.2 0.2 - 1.2 mg/dL (calc) [facility] ALKALINE PHOSPHATASE 133 37 - 153 U/L [facility] AST 10 10 - 35 U/L [facility] ALT 10 6 - 29 U/L [facility] Blood BLOOD SPECIMEN / Unknown 01/22/2025 3:56 PM CDT 01/22/2025 3:56 PM CDT us Adei Jamey DO CHEMISTRY Final Result [employer] [facility] [address] [place] [address], [facility] [address] [place] [address] * XR ABDOMEN 1 VIEW (01/22/2025 3:48 [...] MD @ 01/22/2025 3:56:54 PM (Electronically Signed) us Adei Shaqra DO GENERAL IMAGING Final Result * (ABNORMAL) LIPID PANEL W REFLEX MEASURED LDL (10/13/2024 4:05 PM OPTICAL STORE MANAGER) CHOLESTEROL,TOTAL 114 100 - 199 mg/dL 10/18/2024 2:25 PM [facility] Comment: Cholesterol, Total Reference Ranges Desirable <200 mg/dL Borderline 200-239 mg/dL High >=240 mg/dL TRIGLYCERIDES 186(H) <150 mg/dL 10/18/2024 2:25 PM [facility] HDL CHOLESTEROL 33(L) >40 mg/dL 2:25 PM [facility] NON-HDL CHOLESTEROL 81 <145 mg/dl 10/18/2024 2:25 PM [facility] CHOL/HDL RATIO 3.45 <4.50 10/18/2024 2:25 PM [facility] LDL CHOLESTEROL 44 <=130 mg/dL 10/18/2024 2:25 PM [facility] VLDL CHOLESTEROL 37(H) <=30 mg/dL 10/18/2024 2:25 PM [facility] PROVIDER ORDERED STATUS NOT GIVEN 10/18/2024 2:25 PM [facility] Blood BLOOD SPECIMEN / Unknown Venipuncture / Unknown 10/13/2024 4:05 PM OPTICAL STORE MANAGER 10/13/2024 4:07 PM OPTICAL STORE MANAGER us Adei Shaqra DO CHEMISTRY Final Result [facility] [address] [place] [address] * COLONOSCOPY (09/13/2024 7:15 AM OPTICAL STORE MANAGER) 09/13/2024 7:15 AM OPTICAL STORE MANAGER Narrative Transcriptions Ernie Shetty MD - 09/13/2024 [...] adequate candidate for conscious sedation. The endoscope [id number] was passed through the anus and advanced [...] CHEST ABDOMEN PELVIS WO (09/10/2024 7:40 PM OPTICAL STORE MANAGER) Anatomical Region Laterality Modality Abdomen, Pelvis, AORTA, LIVER, SPLEEN, CHEST Computed Tomography 09/10/2024 7:53 PM OPTICAL STORE MANAGER Impressions 09/10/2024 7:53 PM OPTICAL STORE MANAGER 1. Right axillary adenopathy seen with lymph [...] 19:53:09 (Electronically Signed) Narrative 09/10/2024 7:53 PM OPTICAL STORE MANAGER For Patients: As a result of the [...] MD @ 09/10/2024 19:53:09 (Electronically Signed) us Mehulwni SNYDER CT Final Re sult * ANTI HCV (05/11/2022 11:13 AM CDT) HEPATITIS C ANTIBODY Non-React ebony Non-React ebony 05/12/2022 1:53 AM CDT [facility] Comment:Antibodies to HCV no t detected; does not exclude the possibility of exposure to HCV. Blood BLOOD SPECIMEN / Unknown Venipuncture / Unknown 05/11/2022 11:13 AM CDT 05/11/2022 11:15 AM CDT Stacy Trevizo MD SEND OUTS Fin al Result [facility] [address] [place] [address], [place] * XR MAMMO BILAT DIAG FFDM [...] Insurance MEDICAID MEDICARE PART A HB ONLY [facility] MR BLUE ADVANTAGE [place] Advance Directives Documents on File Type Date Recorded Patient Transportation Clerk Expl anation Healthcare Directive 06/06/2024 024 * [...] Code Status Discussion: Reviewed Preferences Care Teams Transfer Table Operator Helper Relationship Specialty Start Date End Date Orlando [place] [address] PCP - General Family Practice 06/11/24 Karissa Childs MD [address] [facility] [address] [facility] [address] [place] [address] Rheumatology Rheumatology 01/19/16 Giovanna Diez PharmD [address] [facility] [place] [address] Pharmacist Medication Management Pharmacology 06/26/24 06/26/27
--- OUTSIDE RECORDS SUMMARY | 2025-04-17 04:15 | XMS_ITS | Clinical Summary ---
Author Organization [facility] Address [address] [place] [address] Phone Care Team Providers Care Paratransit Operator Name Role Phone Orlando Concepcion DO Primary Care Provider [phone] Allergies Active Allergy Reactions Criticality Noted Date [...] (07/08/2024): Patient seen by endocrinology 09/2021 at [place]. Diagnosed with Autoimmune hypothyroidism/ Pascual's thyroiditis. Does [...] Comments Blood Pressure 121/60 07/08/2024 8:58 AM METAL FURNITURE ASSEMBLY SUPERVISOR Pulse 73 07/08/2024 8:58 AM METAL FURNITURE ASSEMBLY SUPERVISOR Temperature - - Respiratory Rate - - Oxygen Saturation - - Inhaled Oxygen Concentration - - Weight 89.8 kg (198 lb) 07/08/2024 8:58 AM METAL FURNITURE ASSEMBLY SUPERVISOR Height 149.9 cm (4' 11) 07/08/2024 8:58 AM METAL FURNITURE ASSEMBLY SUPERVISOR Body Mass Index 39.99 07/08/2024 8:58 AM METAL FURNITURE ASSEMBLY SUPERVISOR Plan of Treatment Health Maintenance Due Date [...] topic Insurance [address] [place] [address] [place] [id number] [facility] Medicare Care Teams Paratransit Operator Relationship Specialty Start Date End Date Orlando Concepcion DO [address] [place] [address] PCP - General Family Medicine 06/24/24
[2025-04-17 04:30] VITALS: BP 165/85; PULSE 90; RESP 18; TEMP 36.7
== END 2025-04-17 04:30 | disposition home or self-care (01) ==
PROVIDERS: Emergency Provider Family Medicine; PCP Student in an Organized Health Care Education/Training Program
DX: M54.50 Low back pain, unspecified (principal); G89.29 Other chronic pain
CPT/HCPCS: 81001; 87086; 87631; 99283; 99284

== ENCOUNTER 2025-05-08 07:45 | Outpatient (CLI) | payer MEDICARE, BC, SELFPAY ==
--- NOTE | 2025-05-08 08:15 | CRLHL7_ITS ---
For Patients: As a result of the Cures Act, medical imaging exams and procedure reports are released immediately into your electronic medical record. You may view this report before your referring provider. If you have questions, please contact your health care provider. INDICATION: Lesion left kidney on the most recent abdominal CT dated March 31, 2025 ; further assessment Comparison: CT abdomen and pelvis without intravenous contrast with her 2008, December 03, 2020, May 21, 2020 and a March 31, 2025. TECHNIQUE: MRI of the abdomen without and with intravenous contrast; precontrast T1 and T2 weighted imaging; T2 haste imaging; diffusion-weighted imaging; in and out of phase imaging; postcontrast imaging including subtraction; 20 cc of Dotarem contrast was injected IV. FINDINGS: A 1.4 cm cyst upper pole left kidney with high signal on the precontrast T2 haste imaging and low signal on the precontrast T1 weighted imaging without enhancement post contrast administration. Atrophy left kidney. Right kidney is unremarkable. No focal hepatic or splenic pathology. No pancreatic pathology. No adrenal pathology. No retroperitoneal lymphadenopathy. No evidence of abdominal ascites. IMPRESSION: 1. A 1.4 cm simple cortical cyst upper pole left kidney. 2. Atrophy left kidney. 3. Negative MR of the abdomen without and with intravenous contrast otherwise. Dictated by Jacey Harrell MD @ 05/08/2025 3:01:01 PM (Electronically Signed)
== END 2025-05-08 07:46 | disposition home or self-care (01) ==
PROVIDERS: PCP Student in an Organized Health Care Education/Training Program; Visit Provider Student in an Organized Health Care Education/Training Program
DX: N28.89 Other specified disorders of kidney and ureter (principal); N28.1 Cyst of kidney, acquired
CPT/HCPCS: 74183; A9575